=== PATIENT | female | born 1940 | race Caucasian/White ===

== ENCOUNTER 2024-10-05 19:52 | Inpatient (IN) ==
--- NOTE | 2024-10-05 20:11 | Emergency Department Note ---
Impression & Plan Hypotension, Diverticulitis, Tachycardia, Vomiting, Anemia, Intra-abdominal abscess ED Provider Note NAME: MARY ALTMAN AGE: 84 SEX: F : 1940 ARRIVES VIA: Walk-In INFORMANT: [Patient][family] ED PROVIDER(S): [Bismark Pelaez MD] CHIEF COMPLAINT: Abdominal pain HISTORY OF PRESENT ILLNESS: The patient is an 84-year-old female with a history of previous diverticulitis. She states that she began having some left lower quadrant abdominal pain yesterday. Things worsened today and a few hours ago, she began having vomiting and diarrhea. No blood in the vomit or the diarrhea. She was noted to be pale. She felt dizzy and lightheaded. She was brought for evaluation. There has been no cough or congestion. She is not short of breath. No chest pain. She has not had recent urinary complaints. Of note, today, the patient believes she had a temperature elevation. PMHx/PSHx/Social Hx: See Below PHYSICAL EXAM: GENERAL: Patient is in mild distress from pain, pale. HEENT: No acute trauma, normocephalic atraumatic, mucous membranes moist, no nasal congestion. NECK: No stridor, no adenopathy, no meningismus, trachea is midline. LUNGS: Clear to auscultation bilaterally, no wheeze, no rhonchi, breath sounds equal. HEART: Tachycardic, regular rhythm, no murmurs. ABDOMEN: Soft, tender primarily on the left although, the entire abdomen seems somewhat tender. No distention. EXTREMITIES: No cyanosis, full range of motion of all the joints without pain or difficulty. NEUROLOGIC: Oriented x 3, no acute motor or sensory deficits, no focal weakness. SKIN: No jaundice, no diaphoresis. Pale. DIFFERENTIAL DIAGNOSIS: Diverticulitis, abscess, pyelonephritis, foodborne or viral illness, electrolyte imbalance, dehydration, GI bleeding, among others. EMERGENCY DEPARTMENT PROCEDURES: MEDICAL DECISION MAKING: There is no leukocytosis. The patient is anemic however, this appears to have been the case over the last month or so. There was a normal platelet count. Sodium somewhat low but not in need of emergent correction. No renal failure. Lactic acid level was not elevated making severe sepsis less likely. No worrisome liver enzyme elevation. ECG showed a sinus tachycardia, no ischemia or dysrhythmia. Cardiac enzyme testing x 1 is not consistent with acute cardiac injury. Procalcitonin level is not elevated making serious bacterial infection less likely. No evidence for pancreatitis. Urinalysis did not show findings of infection. Abdominal and pelvis CT shows diverticulitis with a small left lower abdominal abscess. The possibility of tubo-ovarian abscess was queried. On exam, the patient was hypotensive, tachycardic and tender in the left lower quadrant. She appeared pale. Patient received IV saline, 1.5 L. She was given IV Zosyn as antibiotic coverage. She was given IV Zofran, IV Protonix and IV Pepcid. She was given IV Tylenol. With the above interventions, the patient has made improvement. She is much more comfortable. Her tachycardia has improved, her hypertension has resolved. I did speak with general surgery. The patient was seen by general surgery here in the ED. Hospitalization on the medical service was recommended. Patient very likely has diverticulitis with a small abscess from the diverticulitis. The possibility of ovarian cyst or tubo-ovarian abscess exists but seems less likely. I did speak with the patient and family. I spoke with case management, the on- call hospitalist was consulted. Prior/Outside records/notes reviewed: None ECG per my interpretation: Indication was abdominal pain. The ECG shows a sinus tachycardia with some PACs. The rate is 108. There is some diffuse nonspecific ST change. LVH is present. There is no acute ST elevation. No PVCs. The QTc is 452. Continuous Cardiac Monitoring per my interpretation: An order was placed for continuous cardiac monitoring. The monitor shows a rate of 115 with sinus tachycardia. Imaging/x-ray results per my interpretation: Chronic Medical/Social conditions affecting care: Advanced age. Care/Management discussed with: General Surgery-Dr. Mckeon. Case management and the on-call hospitalist. Level of care consideration(s): After review of the information above and other included data: --I believe the patient requires escalation of care to admission Critical Care Note: I have personally spent 54 minutes of critical care time in the direct management of this patient. This includes bedside care, interpretation of diagnostic studies, and testing, discussion with consultants, patient, and family members, and other required patient management activities. This 54 minutes is in excess of all separately billable procedures. DISPOSITION: Admission Past Med/Surg History Problem List Intra-abdominal abscess (Acute) Anemia (Acute) Vomiting (Acute) Tachycardia (Acute) Diverticulitis (Acute) Hypotension (Acute) Thyroid disease Seborrheic keratosis Osteoporosis Hyperlipidemia History of basal cell carcinoma Encounter for routine gynecological examination Depression Actinic keratosis Arthritis of both knees Tendinitis of right rotator cuff Hypercholesterolemia Pre-syncope Arthritis (Acute) Breast cancer (Acute) Hypothyroid (Acute) Left elbow fracture (Acute) Medical History Hypothyroidism Breast cancer Surgical History H/O colonoscopy H/O elbow surgery S/P breast lumpectomy Family History Family/Other Breast cancer Father Lung cancer Other Myocardial infarction Denies family history of Ovarian cancer Prostate cancer Colorectal cancer Social History Smoking Status: Never smoker Tobacco Type: Cigarettes Age Started Using Tobacco: 19; Age Quit Using Tobacco: 29; packs per day: 0.25; Second Hand Exposure: No; Hx Alcohol Use: Yes (1 glass of wine daily) Alcohol type: wine Alcohol Intake Frequency: Monthly or Less Hx Substance Use: No Preferred Language: Kazakh marital status: current occupational status: retired How many Children do You have: 3 Feels Safe at Home: Yes Childhood Exposure to Second-Hand Smoke: No during the past year weight has: remained stable Dental Care, Regularly: Yes Physical Activity Frequency: 1-2 Times per Week Seatbelt Use: always Sunscreen Use: Yes Allergies Allergies Allergy/AdvReac Type Severity Reaction Status Date / Time Corticosteroids AdvReac Severe "MANIC" Verified 10/05/24 21:55 (Glucocorticoids) succinylcholine AdvReac Severe Agitated Verified 10/05/24 21:55 Home Meds Home Medications Medication Instructions Recorded Confirmed atorvastatin 10 mg tablet 10 mg PO HS 11/11/21 10/05/24 levothyroxine 88 mcg tablet 88 mcg PO DAILYBB 02/09/23 10/05/24 risperidone 1 mg tablet 1 mg PO HS 02/09/23 10/05/24 trazodone 50 mg tablet 25 mg PO HS PRN Sleep 02/09/23 10/05/24 cholecalciferol (vitamin D3) 125 125 mcg PO DAILY 09/01/24 10/05/24 mcg (5,000 unit) capsule vitamin B complex 1 tab PO DAILY 09/01/24 10/05/24 turmeric 400 mg capsule 800 mg PO DAILY 10/05/24 10/05/24 Results & Data (ED) Vital Signs Vital Signs - 24 hr 10/05/24 19:54 10/05/24 20:03 10/05/24 20:06 Temperature 36.9 C Temperature Source Temporal Artery Scan Pulse Rate 117 H 115 H Pulse Rate from SpO2 Sensor Respiratory Rate 18 Respiratory Effort / Characteristics Non-Labored Spontaneous Respiratory Depth Normal Respiratory Pattern Regular Blood Pressure 90/51 L 117/67 Blood Pressure Mean 64 98 Pulse Oximetry 94 Oxygen Delivery Method Room Air Sepsis Recent Fever Within 48 Hours No Sepsis New/Unexplained Change in Mental Status N/A Sepsis Action Taken by Nursing No Action Required 10/05/24 20:08 10/05/24 20:11 10/05/24 20:54 Temperature Temperature Source Pulse Rate 102 H Pulse Rate from SpO2 Sensor Respiratory Rate 22 Respiratory Effort / Characteristics Respiratory Depth Respiratory Pattern Blood Pressure 126/79 Blood Pressure Mean 90 Pulse Oximetry 95 Oxygen Delivery Method Room Air Sepsis Recent Fever Within 48 Hours Sepsis New/Unexplained Change in Mental Status Sepsis Action Taken by Nursing 10/05/24 21:19 10/05/24 21:19 10/05/24 21:30 Temperature Temperature Source Pulse Rate 100 H 97 H Pulse Rate from SpO2 Sensor 97 H Respiratory Rate 22 25 H Respiratory Effort / Characteristics Respiratory Depth Respiratory Pattern Blood Pressure 126/76 126/76 100/57 L Blood Pressure Mean 106 106 71 Pulse Oximetry 94 94 Oxygen Delivery Method Room Air Room Air Sepsis Recent Fever Within 48 Hours Sepsis New/Unexplained Change in Mental Status Sepsis Action Taken by Nursing 10/05/24 21:42 10/05/24 22:00 10/05/24 22:39 Temperature Temperature Source Pulse Rate 93 H 90 90 Pulse Rate from SpO2 Sensor 93 H 90 90 Respiratory Rate 25 H 25 H 28 H Respiratory Effort / Characteristics Respiratory Depth Respiratory Pattern Blood Pressure 95/57 L 124/67 Blood Pressure Mean 69 86 Pulse Oximetry 93 93 96 Oxygen Delivery Method Room Air Room Air Room Air Sepsis Recent Fever Within 48 Hours Sepsis New/Unexplained Change in Mental Status Sepsis Action Taken by Nursing 10/05/24 22:40 Temperature Temperature Source Pulse Rate Pulse Rate from SpO2 Sensor Respiratory Rate Respiratory Effort / Characteristics Respiratory Depth Respiratory Pattern Blood Pressure 124/67 Blood Pressure Mean 91 Pulse Oximetry Oxygen Delivery Method Sepsis Recent Fever Within 48 Hours Sepsis New/Unexplained Change in Mental Status Sepsis Action Taken by Snf Medications Current Medication List: was personally reviewed by me Laboratory Data Attestation: I reviewed the patient's lab results. 10/05/24 20:04 10/05/24 20:04 Lab Results 10/05/24 10/05/24 10/05/24 Range/Units 20:04 20:27 22:39 WBC 9.68 (4.8-10.8) K/ul RBC 3.79 L (4.20-5.40) M/uL Hgb 10.3 L (12.0-16.0) g/dl Hct 31.3 L (37.0-47.0) % MCV 82.6 (80.0-100.0) fL MCH 27.2 (25.0-34.0) pg MCHC 32.9 (32.0-36.0) g/dL RDW Std Deviation 45.5 (36.4-46.3) fL RDW Coeff of Dinesh 15.2 H (11.5-14.5) % Plt Count 357 (130-400) K/uL MPV 10.2 (9.4-12.4) fL Immature Gran % (Auto) 0.2 % Neut % (Auto) 78.6 % Lymph % (Auto) 12.9 % [place] % (Auto) 8.0 % Eos % (Auto) 0.1 % Baso % (Auto) 0.2 % Neut # (Auto) 7.61 H (1.40-6.50) K/uL Lymph # (Auto) 1.25 (1.20-3.40) K/uL [place] # (Auto) 0.77 H (0.11-0.59) K/uL Eos # (Auto) 0.01 (0.00-0.50) K/uL Baso # (Auto) 0.02 (0.00-0.20) K/uL Immature Gran # (Auto) 0.02 (0.01-0.20) K/uL Sodium 131 L (136-145) mmol/L Potassium 4.0 (3.5-5.1) mmol/L Chloride 98 (98-107) mmol/L Carbon Dioxide 21 (21-32) mmol/L Anion Gap 12 H (3-11) BUN 17 (6-23) mg/dl Creatinine 0.89 (0.6-1.2) mg/dl Est Cr Clr Drug Dosing 42.3 ml/min eGFR 63.49 BUN/Creatinine Ratio 19.1 (10-20) Glucose 206 H (70-99(Fasting)) mg/dl Lactate 1.9 (0.4-2.0) mmol/L Calcium 9.2 (8.6-10.3) mg/dl Magnesium 1.9 (1.7-2.4) mg/dl Total Bilirubin 0.6 (0.2-1.0) mg/dl AST 12 L (13-39) U/L ALT 6 L (7-52) U/L Alkaline Phosphatase 80 (34-104) U/L Troponin I High Sens 6.7 (0-14) pg/ml Total Protein 7.3 (6.0-8.3) gm/dl Albumin 3.5 (3.4-5.0) gm/dl Globulin 3.8 (2.5-4.0) gm/dl Albumin/Globulin Ratio 0.9 (0.9-2) Lipase 19 (11-82) U/L Procalcitonin 0.12 (0-0.5) ng/ml Urine Color Yellow Urine Appearance Clear (Clear) Urine pH 6.5 (4.5-7.5) Ur Specific [place] > 1.045 H (1.000-1.030) Urine Protein Negative (Negative) Urine Glucose (UA) Negative (Negative) Urine Ketones Negative (Negative) Urine Blood Negative (Negative) Urine Nitrite Negative (Negative) Urine Bilirubin Negative (Negative) Urine Urobilinogen Negative (Negative) Ur Leukocyte Esterase Negative (Negative) Administered Medications Discontinued Medications Sodium Chloride (Nss) 1,000 mls @ 999 mls/hr IV .Q1H1M STA Stop: 10/05/24 20:59 Last Infusion: 10/05/24 21:20 Dose: Infused Documented By: Admin: 10/05/24 20:13 Dose: 999 mls/hr Documented By: ONI Famotidine (Pepcid 20mg Iv Push) 20 mg in 5 mls @ 2.5 mls/min IV NOW STA Stop: 10/05/24 20:00 Last Admin: 10/05/24 20:14 Dose: 2.5 mls/min Documented By: ONI Pantoprazole Sodium 80 mg/ (Dextrose) 120 mls @ 400 mls/hr IV NOW ONE Stop: 10/05/24 20:53 Last Infusion: 10/05/24 22:32 Dose: Infused Documented By: Admin: 10/05/24 22:08 Dose: 400 mls/hr Documented By: ONI Acetaminophen (Ofirmev) 1,000 mg in 100 mls @ 400 mls/hr IV NOW STA Stop: 10/05/24 21:08 Last Infusion: 10/05/24 22:07 Dose: Infused Documented By: Admin: 10/05/24 21:20 Dose: 400 mls/hr Documented By: ONI Piperacillin Sod/Tazobactam Sod (Zosyn) 4.5 gm in 100 mls @ 200 mls/hr IV NOW ONE Stop: 10/05/24 22:35 Last Admin: 10/05/24 22:37 Dose: 200 mls/hr Documented By: ONI Sodium Chloride (Nss) 500 mls @ 999 mls/hr IV .Q31M ONE Stop: 10/05/24 22:36 Last Admin: 10/05/24 22:11 Dose: 999 mls/hr Documented By: ONI Ioversol (Optiray 320 100ml) 90 ml IV ONCE ONE Stop: 10/05/24 20:59 Last Admin: 10/05/24 20:58 Dose: 90 ml Documented By: TINY Ondansetron HCl (Ondansetron Inj 2 Mg/Ml 2 Ml Vial) 4 mg IV NOW STA Stop: 10/05/24 20:00 Last Admin: 10/05/24 20:14 Dose: 4 mg Documented By: ONI Imaging Data Radiologist's Impression: Abdomen/Pelvis CT 10/05/24 19:59 Exam(s): CT ABDOMEN + PELVIS With Contrast IV Amt: 90 ml optiray 320 EXAM: CT Abdomen and Pelvis With Intravenous Contrast CLINICAL HISTORY: Reason for exam: llq pain, vomiting. TECHNIQUE: Axial computed tomography images of the abdomen and pelvis with intravenous contrast. CTDI is 16.73 mGy and DLP is 757.09 mGy-cm. Automated exposure control was utilized for the study. A dose lowering technique was utilized adhering to the principles of ALARA. CONTRAST: Patient received 90 ml optiray 320 of IV contrast COMPARISON: May 16, 2024 FINDINGS: Lung bases: Unremarkable. No mass. No consolidation. Mediastinum: There is a hiatal hernia measuring 10 cm transverse containing approximately one third of the stomach. ABDOMEN: Liver: Unremarkable. No mass. Gallbladder and bile ducts: Unremarkable. No calcified stones. No ductal dilation. Pancreas: Unremarkable. No mass. No ductal dilation. Spleen: Unremarkable. No splenomegaly. Adrenals: Unremarkable. No mass. Kidneys and ureters: Unremarkable. No solid mass. No hydronephrosis. Stomach and bowel: There is diverticulosis throughout the sigmoid colon with mild wall thickening and slight surrounding inflammation suggesting diverticulitis and/or colitis. Mild diffuse mesenteric edema in the lower abdomen and pelvis most plus associated with small bowel loops suggesting enteritis. No obstruction. PELVIS: Appendix: No findings to suggest acute appendicitis. Bladder: Unremarkable. No mass. Reproductive: There is a curvilinear fluid-filled tubular structure measuring 2 cm in diameter in the left side of the pelvis which appears contiguous with the uterus. ABDOMEN and PELVIS: Intraperitoneal space: Small to moderate amount of free fluid in the pelvis. No free air. Bones/joints: Mild to moderate degenerative changes throughout the spine. No acute fracture or subluxation is seen. Soft tissues: Unremarkable. Vasculature: The abdominal aorta is mildly calcified but nondilated. Lymph nodes: Unremarkable. No enlarged lymph nodes. IMPRESSION: 1. There is a curvilinear fluid-filled tubular structure measuring 2 cm in diameter in the left side of the pelvis which appears contiguous with the uterus. Consider tubo-ovarian abscess. 2. There is diverticulosis throughout the sigmoid colon with mild wall thickening and slight surrounding inflammation suggesting diverticulitis and/or colitis. 3. Mild diffuse mesenteric edema in the lower abdomen and pelvis most plus associated with small bowel loops suggesting enteritis. 4. There is a hiatal hernia measuring 10 cm transverse containing approximately one third of the stomach. Electronically signed by: Leonardo Amato MD 10/05/24 22:13 PM Discharge Plan Visit Data Chief Complaint: Abdominal Pain Stated Complaint: ABD PAIN ED Provider: Bismark Pelaez Discharge Problem: Hypotension, Diverticulitis, Tachycardia, Vomiting, Anemia, Intra-abdominal abscess Patient Disposition: Admitted As Inpatient Condition: Serious Forms Stand Alone Forms: My [facility] Prescriptions Prescriptions: No Action cholecalciferol (vitamin D3) 125 mcg (5,000 unit) capsule 125 mcg PO DAILY vitamin B complex Tablet 1 tab PO DAILY atorvastatin 10 mg tablet 10 mg PO HS risperidone 1 mg tablet 1 mg PO HS trazodone 50 mg tablet 25 mg PO HS PRN (Reason: Sleep) Rx Instructions: may repeat once if needed levothyroxine 88 mcg tablet 88 mcg PO DAILYBB turmeric 400 mg Capsule 800 mg PO DAILY Referrals Referrals: Macie Parish DO [Primary Care Provider] - Discharge Problem: Hypotension Qualifiers: Hypotension type: unspecified hypotension type Qualified Code(s): I95.9 - Hypotension, unspecified Vomiting Qualifiers: Vomiting type: unspecified Nausea presence: with nausea Qualified Code(s): R 11.2 - Nausea with vomiting, unspecified Anemia Qualifiers: Anemia type: unspecified type Qualified Code(s): D64.9 - Anemia, unspecified
[2024-10-05] MEDS: SODIUM CHLORIDE 0.9% 1,000 ML IV STA (20:13)
[2024-10-05] MEDS: FAMOTIDINE 20MG IV PUSH 20 MG/5 ML SYR IV STA (20:14)
[2024-10-05] MEDS: ONDANSETRON INJ 2 MG/ML 2 ML VIAL IV STA (20:14)
[2024-10-05 20:23] LABS: Basophils # (auto) 0.02 K/uL (0.00-0.20); Basophils % (auto) 0.2 %; Eosinophils # (auto) 0.01 K/uL (0.00-0.50); Eosinophils % (auto) 0.1 %; Hematocrit (blood only) 31.3 % (37.0-47.0); Hemoglobin 10.3 g/dl (12.0-16.0); Immature Granulocytes # (auto) 0.02 K/uL (0.01-0.20); Immature Granulocytes % (auto) 0.2 %; Lymphocytes # (auto) 1.25 K/uL (1.20-3.40); Lymphocytes % (auto) 12.9 %; Mean Corpuscular Hemoglobin 27.2 pg (25.0-34.0); Mean Corpuscular Hgb Conc 32.9 g/dL (32.0-36.0); Mean Corpuscular Volume 82.6 fL (80.0-100.0); Mean Platelet Volume 10.2 fL (9.4-12.4); Monocytes # (auto) 0.77 K/uL (0.11-0.59); Neutrophils # (auto) 7.61 K/uL (1.40-6.50); Neutrophils % (auto) 78.6 %; Platelet Count 357 K/uL (130-400); RDW Coefficient of Variation 15.2 % (11.5-14.5); RDW Standard Deviation 45.5 fL (36.4-46.3); Red Blood Count 3.79 M/uL (4.20-5.40); White Blood Count 9.68 K/ul (4.8-10.8)
[2024-10-05 20:42] LABS: Albumin Globulin Ratio 0.9 (0.9-2); Albumin Level 3.5 gm/dl (3.4-5.0); BUN Creatinine Ratio 19.1 (10-20); Bilirubin,Total 0.6 mg/dl (0.2-1.0); Calcium 9.2 mg/dl (8.6-10.3); Creatinine Clr Calc Pharmacy 42.3 ml/min; Globulin 3.8 gm/dl (2.5-4.0); Magnesium 1.9 mg/dl (1.7-2.4); Total Protein 7.3 gm/dl (6.0-8.3)
[2024-10-05 20:48] LABS: Troponin I High Sensitivity 6.7 pg/ml (0-14)
[2024-10-05] MEDS: OPTIRAY 320 100ml IV ONE (20:58)
[2024-10-05] MEDS: ACETAMINOPHEN 1,000 MG/100 ML VIAL IV STA (21:20)
[2024-10-05] MEDS: PANTOprazole 80 MG in DEXTROSE 5% 100 ML IV ONE (22:08)
[2024-10-05] MEDS: SODIUM CHLORIDE 0.9% 500 ML IV ONE (22:11)
--- NOTE | 2024-10-05 22:14 | CT Scan Report ---
Exam(s): CT ABDOMEN + PELVIS With Contrast IV Amt: 90 ml optiray 320 EXAM: CT Abdomen and Pelvis With Intravenous Contrast CLINICAL HISTORY: Reason for exam: llq pain, vomiting. TECHNIQUE: Axial computed tomography images of the abdomen and pelvis with intravenous contrast. CTDI is 16.73 mGy and DLP is 757.09 mGy-cm. Automated exposure control was utilized for the study. A dose lowering technique was utilized adhering to the principles of ALARA. CONTRAST: Patient received 90 ml optiray 320 of IV contrast COMPARISON: May 16, 2024 FINDINGS: Lung bases: Unremarkable. No mass. No consolidation. Mediastinum: There is a hiatal hernia measuring 10 cm transverse containing approximately one third of the stomach. ABDOMEN: Liver: Unremarkable. No mass. Gallbladder and bile ducts: Unremarkable. No calcified stones. No ductal dilation. Pancreas: Unremarkable. No mass. No ductal dilation. Spleen: Unremarkable. No splenomegaly. Adrenals: Unremarkable. No mass. Kidneys and ureters: Unremarkable. No solid mass. No hydronephrosis. Stomach and bowel: There is diverticulosis throughout the sigmoid colon with mild wall thickening and slight surrounding inflammation suggesting diverticulitis and/or colitis. Mild diffuse mesenteric edema in the lower abdomen and pelvis most plus associated with small bowel loops suggesting enteritis. No obstruction. PELVIS: Appendix: No findings to suggest acute appendicitis. Bladder: Unremarkable. No mass. Reproductive: There is a curvilinear fluid-filled tubular structure measuring 2 cm in diameter in the left side of the pelvis which appears contiguous with the uterus. ABDOMEN and PELVIS: Intraperitoneal space: Small to moderate amount of free fluid in the pelvis. No free air. Bones/joints: Mild to moderate degenerative changes throughout the spine. No acute fracture or subluxation is seen. Soft tissues: Unremarkable. Vasculature: The abdominal aorta is mildly calcified but nondilated. Lymph nodes: Unremarkable. No enlarged lymph nodes. IMPRESSION: 1. There is a curvilinear fluid-filled tubular structure measuring 2 cm in diameter in the left side of the pelvis which appears contiguous with the uterus. Consider tubo-ovarian abscess. 2. There is diverticulosis throughout the sigmoid colon with mild wall thickening and slight surrounding inflammation suggesting diverticulitis and/or colitis. 3. Mild diffuse mesenteric edema in the lower abdomen and pelvis most plus associated with small bowel loops suggesting enteritis. 4. There is a hiatal hernia measuring 10 cm transverse containing approximately one third of the stomach. Electronically signed by: Leonardo Amato MD 10/05/24 22:13 PM
[2024-10-05] MEDS: PIPERACILLIN/TAZOBACTAM 4.5 GM/100 ML BAG IV ONE (22:37)
--- NOTE | 2024-10-05 23:03 | Surgery Consultation ---
Date of Consultation October 05, 2024 Assessment & Plan (1) Diverticulitis: Patient is a 84-year-old female with complaints of severe left lower quadrant abdominal pain with associated nausea, vomiting and diarrhea. Upon workup in the emergency department her WBC was [address] imaging was concerning for diverticu litis, enteritis, and a 2cm fluid-filled tubular structure concerning for possible tubo-ovarian abscess in the left pelvis. Patient originally was hypotensive with SBP in the 90s and tachycardic with HR in the 110s and after fluid resuscitation the patient did respond appropriately. During exam, the patient has no signs of acute abdomen that would warrant emergent surgical intervention at this time. In regards to the 2cm abscess in the left pelvis, the possibility of tubo-ovarian abscess seems less likely at this time given patient's clinical exam and her prior history of diverticulitis. From a surgical standpoint recommend the patient be admitted for close monitoring. NPO, IV hydration, IV antibiotics, and pain control. Continue to monitor WBC. Could consider consult gynecology to further evaluate for possible tubo-ovarian abscess. Medical management per primary team, surgery will continue to closely follow. (2) Intra-abdominal abscess: History of Present Illness Reason for Consultation: Diverticulitis History of Present Illness Patient is a 84-year-old female who presented to the emergency department this evening with complaints of severe abdominal pain. The patient states that the pain started yesterday however suddenly shortly after eating dinner tonight the pain had gotten more severe. The pain was located in her left lower quadrant however is now more diffuse throughout her abdomen. The pain was so severe she ultimately became nauseous and did have some vomiting. She also had diarrhea with cramping pains. The patient does have a history of previous diverticulitis in 2022 that was treated conservatively with antibiotics at that time. She did have a colonoscopy in 2022 as well which did demonstrate diverticulosis and 2 polyps were removed. In the emergency department the patient was tachycardic and slightly hypotensive when she first arrived, however she did respond to fluids. CT imaging was concerning for diverticulitis, enteritis, and a 2cm fluid-filled tubular structure in the left pelvis concerning for possible tubo-ovarian abs cess. Due to the findings, the surgery team was consulted for further evaluation. The patient was seen and evaluated this evening at bedside, she is accompanied by her and daughter. The patient is resting comfortably in bed, VSS and no longer tachycardic or hypotensive, and is nontoxic appearing. The patient continues with pain in the LLQ however no longer has any nausea or vomiting. The patient states she has never had any previous abdominal surgeries in the past. Allergies Allergy/AdvReac Type Severity Reaction Status Date / Time Corticosteroids AdvReac Severe "MANIC" Verified 10/05/24 21:55 (Glucocorticoids) succinylcholine AdvReac Severe Agitated Verified 10/05/24 21:55 Home Medications Medication Instructions Recorded Confirmed Type atorvastatin 10 mg tablet 10 mg PO HS 11/11/21 10/05/24 History levothyroxine 88 mcg tablet 88 mcg PO DAILYBB 02/09/23 10/05/24 History risperidone 1 mg tablet 1 mg PO HS 02/09/23 10/05/24 History trazodone 50 mg tablet 25 mg PO HS PRN Sleep 02/09/23 10/05/24 History cholecalciferol (vitamin D3) 125 125 mcg PO DAILY 09/01/24 10/05/24 History mcg (5,000 unit) capsule vitamin B complex 1 tab PO DAILY 09/01/24 10/05/24 History turmeric 400 mg capsule 800 mg PO DAILY 10/05/24 10/05/24 History Patient History Medical History Hypothyroidism Breast cancer Surgical History H/O colonoscopy H/O elbow surgery S/P breast lumpectomy Family History Family/Other Breast cancer Father Lung cancer Other Myocardial infarction Denies family history of Ovarian cancer Prostate cancer Colorectal cancer Social History Smoking Status: Former smoker Tobacco Type: Cigarettes Age Started Using Tobacco: 19; Age Quit Using Tobacco: 29; packs per day: 0.25; Second Hand Exposure: No; Do You Dip or Chew Tobacco: No; Hx Alcohol Use: Yes Alcohol type: wine Alcohol Intake Frequency: Monthly or Less Hx Substance Use: No Preferred Language: [place] Zeal[place] Beliefs That Will Affect Care: None marital status: Current Living Situation: Spouse Current Living Situation Comment: Pt lives in a two story home with her spouse current occupational status: retired How many Children do You have: 3 Other Information That Helps Us Care for You: No Feels Safe at Home: Yes Safety Concerns: Feels Safe At This Time Childhood Exposure to Second-Hand Smoke: No during the past year weight has: remained stable Dental Care, Regularly: Yes Physical Activity Frequency: 1-2 Times per Week Seatbelt Use: always Sunscreen Use: Yes Assistive Devices: Glasses Review of Systems Constitutional: as per Subjective / HPI and + body aches Respiratory: no cough, no dyspnea and no wheezing Cardiovascular: no chest pain, no palpitations and no syncope Gastrointestinal: + abdominal pain, + nausea, + vomiting a nd + cramping Genitourinary: no dysuria, no urinary hesitancy and no hematuria Physical Exam Constitutional: WD/WN, vitals as above Respiratory: normal respiratory effort, lungs clear to auscultation Cardiovascular: RRR, no murmur, no edema Gastrointestinal (Abdomen): Abdomen soft, minimally distended, +TTP in the LLQ. No rebound or signs of peritonitis Skin: no rashes, warm and dry Results & Data Vital Signs (Past 12 Hours) Vital Signs Temp Pulse Resp BP Pulse Ox O2 Del Method 10/05/24 22:40 124/67 10/05/24 22:39 90 28 H 124/67 96 Room Air 10/05/24 22:00 90 25 H 95/57 L 93 Room Air 10/05/24 21:42 93 H 25 H 93 Room Air 10/05/24 21:30 97 H 25 H 100/57 L 94 Room Air 10/05/24 21:19 126/76 10/05/24 21:19 100 H 22 126/76 94 Room Air 10/05/24 20:54 102 H 22 10/05/24 20:11 95 Room Air 10/05/24 20:08 126/79 10/05/24 20:06 115 H 10/05/24 20:03 117/67 10/05/24 19:54 36.9 C 117 H 18 90/51 L 94 Room Air Diagnostic Findings Exam(s): CT ABDOMEN + PELVIS With Contrast IV Amt: 90 ml optiray 320 EXAM: CT Abdomen and Pelvis With Intravenous Contrast CLINICAL HISTORY: Reason for exam: llq pain, vomiting. TECHNIQUE: Axial computed tomography images of the abdomen and pelvis with intravenous contrast. CTDI is 16.73 mGy and DLP is 757.09 mGy-cm. Automated exposure control was utilized for the study. A dose lowering technique was utilized adhering to the principles of ALARA. CONTRAST: Patient received 90 ml optiray 320 of IV contrast COMPARISON: May 16, 2024 FINDINGS: Lung bases: Unremarkable. No mass. No consolidation. Mediastinum: There is a hiatal hernia measuring 10 cm transverse containing approximately one third of the stomach. ABDOMEN: Liver: Unremarkable. No mass. Gallbladder and bile ducts: Unremarkable. No calcified stones. No ductal dilation. Pancreas: Unremarkable. No mass. No ductal dilation. Spleen: Unremarkable. No splenomegaly. Adrenals: Unremarkable. No mass. Kidneys and ureters: Unremarkable. No solid mass. No hydronephrosis. Stomach and bowel: There is diverticulosis throughout the sigmoid colon with mild wall thickening and slight surrounding inflammation suggesting diverticulitis and/or colitis. Mild diffuse mesenteric edema in the lower abdomen and pelvis most plus associated with small bowel loops suggesting enteritis. No obstruction. PELVIS: Appendix: No findings to suggest acute appendicitis. Bladder: Unremarkable. No mass. Reproductive: There is a curvilinear fluid-filled tubular structure measuring 2 cm in diameter in the left side of the pelvis which appears contiguous with the uterus. ABDOMEN and PELVIS: Intraperitoneal space: Small to moderate amount of free fluid in the pelvis. No free air. Bones/joints: Mild to moderate degenerative changes throughout the spine. No acute fracture or subluxation is seen. Soft tissues: Unremarkable. Vasculature: The abdominal aorta is mildly calcified but nondilated. Lymph nodes: Unremarkable. No enlarged lymph nodes. IMPRESSION: 1. There is a curvilinear fluid-filled tubular structure measuring 2 cm in diameter in the left side of the pelvis which appears contiguous with the uterus. Consider tubo-ovarian abscess. 2. There is diverticulosis throughout the sigmoid colon with mild wall thickening and slight surrounding inflammation suggesting diverticulitis and/or colitis. 3. Mild diffuse mesenteric edema in the lower abdomen and pelvis most plus associated with small bowel loops suggesting enteritis. 4. There is a hiatal hernia measuring 10 cm transverse containing approximately one third of the stomach. PG Care Time/CCT Total # of Minutes Spent Total Time Spent with Patient: Total time spent is greater than 50% in coordination of care (as documented) at patient's floor/unit and/or counseling patient: [place] [address] INT INP/OBS CARE MIN Patient Type New Medical Decision Making Straight Forward Diagnoses Diverticulitis K57.92 Intra-abdominal abscess K65.1
[2024-10-05 23:04] LABS: Appearance Urine Clear (Clear); Bilirubin Urine Negative (Negative); Blood Urine Negative (Negative); Color Urine Yellow; Glucose Urine UA Negative (Negative); Ketones Urine Negative (Negative); Leukocyte Esterase Urine Negative (Negative); Nitrite Urine Negative (Negative); Protein Urine Negative (Negative); Specific Gravity Urine > 1.045 (1.000-1.030); Urobilinogen Urine Negative (Negative); pH Urine 6.5 (4.5-7.5)
--- NOTE | 2024-10-06 00:07 | History & Physical Report ---
Date of Service October 06, 2024 Assessment & Plan (1) Intra-abdominal abscess: (2) Vomiting: (3) Diverticulitis: (4) Hyperlipidemia: (5) Thyroid disease: (6) Depression: Plan Patient is a 84 yo F w/ a PMHx of diverticulitis, Hx of BCC, osteoporosis, depression, hypothyroidism, anemia, Hx of breast cancer, presenting today w/ LLQ pain of about a week, accompanied by N/V and a fever of 102 F. 1) Left-side tubo-ovarian abscess - CT: There is a curvilinear fluid-filled tubular structure measuring 2 cm in diameter in the left side of the pelvis which appears contiguous with the uterus. Consider tubo-ovarian abscess. - Gen Surg consulted, ObGyn consulted - NPO at midnight - start Unasyn, 3 g, q6hrs 2) Mild diverticulitis of sigmoid colon CT: There is diverticulosis throughout the sigmoid colon with mild wall thickeni ng and slight surrounding inflammation suggesting diverticulitis and/or colitis. - NPO at midnight, Diet-Clear fluids after surgery, I&D (if that is performed) Chronic conditions #Depression/Insomnia - risperidone, trazodone, Ativan (night of admission) #hypothyroidism - levothyroxine, 88 mcg, PO, daily AM #Hypercholesterolemia - atorvastatin Code status: Full code Disposition: Med-Tele FENGI: NPO initially, Diet-Clear liquids, advance as tolerated VTE prophylaxis: SCD's (to knee) History of Present Illness Chief Complaint: LLQ Abdominal Pain Primary Care Provider: Macie Parish DO Patient is a 84 yo F w/ a PMHx of diverticulitis, Hx of BCC, osteoporosis, depression, hypothyroidism, anemia, Hx of breast cancer, presenting today w/ LLQ pain of about a week, accompanied by N/V and a fever of 102 F. Patient states that she has been experiencing LLQ AP for about a week, off and on. Patient had a bout of diverticulitis in the summertime and since that time has had lingering pain from what she assumed was the diverticulitis. In late Jun, 2024, pt had a second bout of diverticulitis, took another round of antibiotics. Patient started taking Miralax after the second bout of diverticulitis and found that she'd get diarrhea from it, and started taking it every other day. Besides that, the patient hasn't noticed any other changes in her bowel movements, no blood in the stool, no dark-colored stools. Patient has not been following with an ObGyn for years, does not have intercourse, and had not noticed any pain that seemed more inferior to the "diverticular pain" she'd experienced recently. Patient rates the pain right now as a 4/10, states that it has been worse after meals. Patient has been experiencing N/V and had a fever of 102 F today. Patient's last BM was today, she had an episode of diarrhea after the CT scan. Patient feels like she typically gets enough fiber in her diet and has been supplementing with Metamucil at advice of her doctor since the last episode. Last colonoscopy was in 2022, was told to F/U in 3 yrs. Patient denies increased freq/urgency of urination, denies dysuria, denies flank pain. Patient also denies CP, palpitations; cough or wheezing, but does endorse some chronic dyspnea. Allergies Allergy/AdvReac Type Severity Reaction Status Date / Time Corticosteroids AdvReac Severe "MANIC" Verified 10/05/24 21:55 (Glucocorticoids) succinylcholine AdvReac Severe Agitated Verified 10/05/24 21:55 Home Medications Medication Instructions Recorded Confirmed Type atorvastatin 10 mg tablet 10 mg PO HS 11/11/21 10/05/24 History levothyroxine 88 mcg tablet 88 mcg PO DAILYBB 02/09/23 10/05/24 History risperidone 1 mg tablet 1 mg PO HS 02/09/23 10/05/24 History trazodone 50 mg tablet 25 mg PO HS PRN Sleep 02/09/23 10/05/24 History cholecalciferol (vitamin D3) 125 125 mcg PO DAILY 09/01/24 10/05/24 History mcg (5,000 unit) capsule vitamin B complex 1 tab PO DAILY 09/01/24 10/05/24 History turmeric 400 mg capsule 800 mg PO DAILY 10/05/24 10/05/24 History Past Med/Surg History Problem List Intra-abdominal abscess (Acute) Anemia (Acute) Vomiting (Acute) Tachycardia (Acute) Diverticulitis (Acute) Hypotension (Acute) Thyroid disease Seborrheic keratosis Osteoporosis Hyperlipidemia History of basal cell carcinoma Encounter for routine gynecological examination Depression Actinic keratosis Arthritis of both knees Tendinitis of right rotator cuff Hypercholesterolemia Pre-syncope Arthritis (Acute) Breast cancer (Acute) Hypothyroid (Acute) Left elbow fracture (Acute) Medical History Hypothyroidism Breast cancer Surgical History H/O colonoscopy H/O elbow surgery S/P breast lumpectomy Family History Family/Other Breast cancer Father Lung cancer Other Myocardial infarction Denies family history of Ovarian cancer Prostate cancer Colorectal cancer Social History Smoking Status: Former smoker Tobacco Type: Cigarettes Age Started Using Tobacco: 19; Age Quit Using Tobacco: 29; packs per day: 0.25; Second Hand Exposure: No; Do You Dip or Chew Tobacco: No; Hx Alcohol Use: Yes Alcohol type: wine Alcohol Intake Frequency: Monthly or Less Hx Substance Use: No Preferred Language: Serbian Beliefs That Will Affect Care: None marital status: Current Living Situation: Spouse Current Living Situation Comment: Pt lives in a two story home with her spouse current occupational status: retired How many Children do You have: 3 Other Information That Helps Us Care for You: No Feels Safe at Home: Yes Safety Concerns: Feels Safe At This Time Childhood Exposure to Second-Hand Smoke: No during the past year weight has: remained stable Dental Care, Regularly: Yes Physical Activity Frequency: 1-2 Times per Week Seatbelt Use: always Sunscreen Use: Yes Assistive Devices: Glasses Review of Systems Review of Systems: as noted above in the HPI Physical Exam Constitutional: WD/WN, vitals as above Respiratory: normal respiratory effort, lungs clear to auscultation Cardiovascular: RRR, no murmur, no edema Gastrointestinal (Abdomen): Inspection/Auscultation: + abdomen distended and normal bowel sounds Percussion/Palpation: + abdomen tender (RLQ and LLQ pain) and + abdomen firm Psychiatric: A+Ox3, euthymic affect Genitourinary: no CVA tenderness Results & Data Results & Data Vital Signs (Past 12 Hours) Vital Signs Temp Pulse Resp BP Pulse Ox O2 Del Method 10/05/24 23:00 86 20 115/64 96 10/05/24 22:40 124/67 10/05/24 22:39 90 28 H 124/67 96 Room Air 10/05/24 22:00 90 25 H 95/57 L 93 Room Air 10/05/24 21:42 93 H 25 H 93 Room Air 10/05/24 21:30 97 H 25 H 100/57 L 94 Room Air 10/05/24 21:19 126/76 10/05/24 21:19 100 H 22 126/76 94 Room Air 10/05/24 20:54 102 H 22 10/05/24 20:11 95 Room Air 10/05/24 20:08 126/79 10/05/24 20:06 115 H 10/05/24 20:03 117/67 10/05/24 19:54 36.9 C 117 H 18 90/51 L 94 Room Air Diagnostic Findings Abdomen/Pelvis CT 10/05/24 19:59 Exam(s): CT ABDOMEN + PELVIS With Contrast IV Amt: 90 ml optiray 320 EXAM: CT Abdomen and Pelvis With Intravenous Contrast CLINICAL HISTORY: Reason for exam: llq pain, vomiting. TECHNIQUE: Axial computed tomography images of the abdomen and pelvis with intravenous contrast. CTDI is 16.73 mGy and DLP is 757.09 mGy-cm. Automated exposure control was utilized for the study. A dose lowering technique was utilized adhering to the principles of ALARA. CONTRAST: Patient received 90 ml optiray 320 of IV contrast COMPARISON: May 16, 2024 FINDINGS: Lung bases: Unremarkable. No mass. No consolidation. Mediastinum: There is a hiatal hernia measuring 10 cm transverse containing approximately one third of the stomach. ABDOMEN: Liver: Unremarkable. No mass. Gallbladder and bile ducts: Unremarkable. No calcified stones. No ductal dilation. Pancreas: Unremarkable. No mass. No ductal dilation. Spleen: Unremarkable. No splenomegaly. Adrenals: Unremarkable. No mass. Kidneys and ureters: Unremarkable. No solid mass. No hydronephrosis. Stomach and bowel: There is diverticulosis throughout the sigmoid colon with mild wall thickening and slight surrounding inflammation suggesting diverticulitis and/or colitis. Mild diffuse mesenteric edema in the lower abdomen and pelvis most plus associated with small bowel loops suggesting enteritis. No obstruction. PELVIS: Appendix: No findings to suggest acute appendicitis. Bladder: Unremarkable. No mass. Reproductive: There is a curvilinear fluid-filled tubular structure measuring 2 cm in diameter in the left side of the pelvis which appears contiguous with the uterus. ABDOMEN and PELVIS: Intraperitoneal space: Small to moderate amount of free fluid in the pelvis. No free air. Bones/joints: Mild to moderate degenerative changes throughout the spine. No acute fracture or subluxation is seen. Soft tissues: Unremarkable. Vasculature: The abdominal aorta is mildly calcified but nondilated. Lymph nodes: Unremarkable. No enlarged lymph nodes. IMPRESSION: 1. There is a curvilinear fluid-filled tubular structure measuring 2 cm in diameter in the left side of the pelvis which appears contiguous with the uterus. Consider tubo-ovarian abscess. 2. There is diverticulosis throughout the sigmoid colon with mild wall thickening and slight surrounding inflammation suggesting diverticulitis and/or colitis. 3. Mild diffuse mesenteric edema in the lower abdomen and pelvis most plus associated with small bowel loops suggesting enteritis. 4. There is a hiatal hernia measuring 10 cm transverse containing approximately one third of the stomach. Electronically signed by: Leonardo Amato MD 10/05/24 22:13 PM Supervising Physician Co-Signing Physician Notes Attending addendum: I have physically seen this patient, have supervised the medical residents activities, and agree with the H&P unless as otherwise noted. Assessment and Plan: The patient is an 84-year-old female with a past medical history of diverticulitis, BCC, osteoporosis, depression, hypothyroidism, anemia, breast cancer who presents to the emergency department with complaint of 1 week of left lower quadrant pain., With nausea and vomiting, and temperature maximum 102 F. #Sigmoid Diverticulitis/left sided tubo-ovarian abscess- CT scan abdomen pelvis shows diverticulosis throughout the sigmoid colon with mild wall thickening and slight surrounding inflammation suggesting diverticulitis and/for colitis General Surgery consulted, and seen the patient in the emergency department, and will follow during stay CT scan also shows a curvilinear fluid-filled tubular structure measuring 2 cm in diameter in the left side of the pelvis which appears continuous with the uterus, with concern regarding tubo-ovarian abscess We will consult gynecology Placed on Unasyn 3 g IV every 6 hours Zofran 4 mg IV every 6 hours as needed Pantoprazole 40 mg IV daily N.p.o. NSS at 80 mL/h Acetaminophen 1 g IV every 8 hours as needed for mild pain or fever Chronic medical conditions: Hyperlipidemia-hold atorvastatin Hypothyroidism-hold levothyroxine Depression/insomnia-hold risperidone, trazodone and Ativan (2) Vomiting Nausea presence: with nausea Vomiting type: unspecified Qualified Code(s): R11.2 - Nausea with vomiting, unspecified
[2024-10-06] MEDS: LORazepam 0.5 MG TAB PO STA (00:31)
[2024-10-06] MEDS ORDERED: ONDANSETRON INJ 2 MG/ML 2 ML VIAL IV PRN (01:03)
[2024-10-06] MEDS: AMPICILLIN/SULBACTAM SOD 3,000 MG/100 ML BAG IV SCH ×2 (02:05→09:23)
[2024-10-06] MEDS: ACETAMINOPHEN 325 MG TAB PO PRN (02:10)
[2024-10-06] MEDS ORDERED: traZODone HCL 50 MG TAB PO PRN (03:22)
[2024-10-06] MEDS ORDERED: PNEUMOCOCCAL VACCINE (PCV20) 20-VAL CONJ-DIP CRM/PF 0.5 ML SYR IM ONE (03:50)
--- NOTE | 2024-10-06 05:36 | Billing Data ---
Date of Service October 06, 2024 Coding Level of Care Code 39285 INT INP/OBS CARE
[2024-10-06] MEDS ORDERED: LEVOTHYROXINE SODIUM 88 MCG TABLET PO SCH (06:30)
--- NOTE | 2024-10-06 06:47 | Hospitalist Progress Note ---
Date of Service October 06, 2024 Assessment & Plan (1) Intra-abdominal abscess: (2) Vomiting: (3) Diverticulitis: (4) Hyperlipidemia: (5) Thyroid disease: (6) Depression: Plan Patient is a 84 yo F w/ a PMHx of diverticulitis, Hx of BCC, osteoporosis, depression, hypothyroidism, anemia, Hx of breast cancer, presenting to ED on 10/05 w/ LLQ pain of about a week, accompanied by N/V and a fever of 102 F. Worsening pain overnight and sepsis symptoms of increased HR, RR, WBC, and borderline hypotensive. #Left-side tubo-ovarian abscess - CT: There is a curvilinear fluid-filled tubular structure measuring 2 cm in diameter in the left side of the pelvis which appears contiguous with the uterus. Consider tubo-ovarian abscess. - ObGyn consulted - said that previous imaging has also shown similar findings and looks stable, taking patient to ultrasound to ensure measurements - Continue Unasyn, 3 g, q6hrs #Mild diverticulitis of sigmoid colon CT: There is diverticulosis throughout the sigmoid colon with mild wall thicken ing and slight surrounding inflammation suggesting diverticulitis and/or colitis. - Revisit of CT scan showed perforation of diverticulitis, general surgery re- engaged for I&D - Continue Unasyn, 3 g, q6hrs - Diet-Clear fluids after surgery #Sepsis - Patient presenting with pulse 93, Resp 22, WBC of 13.67 meeting SIRS criteria for sepsis - Most likely cause of this is the perforation of the diverticulitis as source of infection - Start LR bolus of 1,000mL IV, then resume Maintenance IVF NSS 125mls/hr Chronic conditions #Depression/Insomnia - risperidone, trazodone, Ativan (night of admission) #hypothyroidism - levothyroxine, 88 mcg, PO, daily AM #Hypercholesterolemia - atorvastatin Code status: Full code Disposition: Med-Tele FENGI: NPO initially, Diet-Clear liquids, advance as tolerated VTE prophylaxis: SCD's (to knee) Admission and Anticipated Discharge Date Admission Date: October 06, 2024 Supervising Physician Co-Signing Physician Notes I personally examined the patient and verified all gonzales points of history and exam, discussed case, and agree with decision making with Dr Singh and Aleksandra Griffith MS2 abdominal pain - L/middle comes and goes in waves but also notably worse w c ough/abrupt movement. dr tate called me to discuss US - looking most c/w perforated diverticulitis. d/w pt in depth, answered all questions to the best of my ability and to her/'s satisfaction. vitals noted laying still in bed but surprisingly nad. heent nc at mmm cardio sl tachycardic breathing unlabored no accessory muscles good effort skin no rashes no pallor or icterus neuro no focal deficits abd: mod distention L sided tenderness w involuntary guarding no clear rebound but is firm; palpation on all of abdomen causes pain/tenderness. sepsis - peritonitis / perforated diverticulitis - on unasyn, IV fluids, surgical evaluation momentarily (updated surgery on US findings as well as my findings on exam). otherwise as above Subjective This morning pt reports pain worsening to 8/10 last night but mentioned it got significantly better with Tylenol. Still mentions some pain around her belly button. Every 5 minutes feels sharp cramp in stomach "Brain's horses but in the stomach". Pain right now is 2/3. She reports no episodes of n/v since yesterday, has had normal bowel movements, no melena, no hematochezia. Once episode of diarrhea after CT scan last night. Has been urinating with no issue. No chest palpitations, wheezing, cough, numbness or tingling in peripheral limbs. Does mention some shortness of breath, but mentions has had this chronically. Review of Systems Review of Systems: as noted above in the HPI Physical Exam Constitutional: WD/WN, vitals as above Respiratory: normal respiratory effort, lungs clear to auscultation Cardiovascular: RRR, no murmur, no edema Gastrointestinal (Abdomen): Inspection/Auscultation: + abdomen distended and normal bowel sounds Percussion/Palpation: + abdomen tender (RLQ and epigastric pain ) and + abdomen firm Psychiatric: A+Ox3, euthymic affect Results & Data Results & Data Vital Signs (Past 12 Hours) Vital Signs Temp Pulse Pulse Resp BP BP Pulse Ox 10/06/24 03:54 91 H 10/06/24 03:00 36.5 C 93 H 18 106/54 L 98 10/06/24 02:30 112/63 10/06/24 02:30 88 22 112/63 98 10/06/24 02:00 85 24 108/61 96 10/06/24 01:30 87 24 106/58 L 95 10/06/24 01:00 86 22 111/66 95 10/06/24 00:34 95 H 22 113/79 97 10/05/24 23:30 88 24 116/64 96 10/05/24 23:00 86 20 115/64 96 10/05/24 22:40 124/67 10/05/24 22:39 90 28 H 124/67 96 10/05/24 22:00 90 25 H 95/57 L 93 10/05/24 21:42 93 H 25 H 93 10/05/24 21:30 97 H 25 H 100/57 L 94 10/05/24 21:19 126/76 10/05/24 21:19 100 H 22 126/76 94 10/05/24 20:54 102 H 22 10/05/24 20:11 95 10/05/24 20:08 126/79 10/05/24 20:06 115 H 10/05/24 20:03 117/67 10/05/24 19:54 36.9 C 117 H 18 90/51 L 94 O2 Del Method 10/06/24 03:54 10/06/24 03:00 Room Air 10/06/24 02:30 10/06/24 02:30 10/06/24 02:00 10/06/24 01:30 10/06/24 01:00 10/06/24 00:34 10/05/24 23:30 10/05/24 23:00 10/05/24 22:40 10/05/24 22:39 Room Air 10/05/24 22:00 Room Air 10/05/24 21:42 Room Air 10/05/24 21:30 Room Air 10/05/24 21:19 10/05/24 21:19 Room Air 10/05/24 20:54 10/05/24 20:11 Room Air 10/05/24 20:08 10/05/24 20:06 10/05/24 20:03 10/05/24 19:54 Room Air Laboratory Results 10/06/24 10/05/24 10/05/24 Range/Units 07:08 22:39 20:27 WBC 13.67 H (4.8-10.8) K/ul RBC 3.51 L (4.20-5.40) M/uL Hgb 9.5 L (12.0-16.0) g/dl Hct 29.8 L (37.0-47.0) % MCV 84.9 (80.0-100.0) fL MCH 27.1 (25.0-34.0) pg MCHC 31.9 L (32.0-36.0) g/dL RDW Std Deviation 47.2 H (36.4-46.3) fL RDW Coeff of Dinesh 15.3 H (11.5-14.5) % Plt Count 314 (130-400) K/uL MPV 10.1 (9.4-12.4) fL Immature Gran % (Auto) 0.4 % Neut % (Auto) 90.3 % Lymph % (Auto) 5.0 % [place] % (Auto) 4.2 % Eos % (Auto) 0.0 % Baso % (Auto) 0.1 % Neut # (Auto) 12.34 H (1.40-6.50) K/uL Lymph # (Auto) 0.69 L (1.20-3.40) K/uL [place] # (Auto) 0.57 (0.11-0.59) K/uL Eos # (Auto) 0.00 (0.00-0.50) K/uL Baso # (Auto) 0.02 (0.00-0.20) K/uL Immature Gran # (Auto) 0.05 (0.01-0.20) K/uL Sodium 135 L (136-145) mmol/L Potassium 4.3 (3.5-5.1) mmol/L Chloride 107 (98-107) mmol/L Carbon Dioxide 22 (21-32) mmol/L Anion Gap 6 (3-11) BUN 12 (6-23) mg/dl Creatinine 0.76 (0.6-1.2) mg/dl Est Cr Clr Drug Dosing 49.1 ml/min eGFR 76.74 BUN/Creatinine Ratio 15.8 (10-20) Glucose 121 H (70-99(Fasting)) mg/dl Lactate 1.9 (0.4-2.0) mmol/L Calcium 8.6 (8.6-10.3) mg/dl Magnesium (1.7-2.4) mg/dl Total Bilirubin (0.2-1.0) mg/dl AST (13-39) U/L ALT (7-52) U/L Alkaline Phosphatase (34-104) U/L Troponin I High Sens (0-14) pg/ml Total Protein (6.0-8.3) gm/dl Albumin (3.4-5.0) gm/dl Globulin (2.5-4.0) gm/dl Albumin/Globulin Ratio (0.9-2) Lipase (11-82) U/L Procalcitonin (0-0.5) ng/ml Urine Color Yellow Urine Appearance Clear (Clear) Urine pH 6.5 (4.5-7.5) Ur Specific [place] > 1.045 H (1.000-1.030) Urine Protein Negative (Negative) Urine Glucose (UA) Negative (Negative) Urine Ketones Negative (Negative) Urine Blood Negative (Negative) Urine Nitrite Negative (Negative) Urine Bilirubin Negative (Negative) Urine Urobilinogen Negative (Negative) Ur Leukocyte Esterase Negative (Negative) 10/05/24 Range/Units 20:04 WBC 9.68 (4.8-10.8) K/ul RBC 3.79 L (4.20-5.40) M/uL Hgb 10.3 L (12.0-16.0) g/dl Hct 31.3 L (37.0-47.0) % MCV 82.6 (80.0-100.0) fL MCH 27.2 (25.0-34.0) pg MCHC 32.9 (32.0-36.0) g/dL RDW Std Deviation 45.5 (36.4-46.3) fL RDW Coeff of Dinesh 15.2 H (11.5-14.5) % Plt Count 357 (130-400) K/uL MPV 10.2 (9.4-12.4) fL Immature Gran % (Auto) 0.2 % Neut % (Auto) 78.6 % Lymph % (Auto) 12.9 % [place] % (Auto) 8.0 % Eos % (Auto) 0.1 % Baso % (Auto) 0.2 % Neut # (Auto) 7.61 H (1.40-6.50) K/uL Lymph # (Auto) 1.25 (1.20-3.40) K/uL [place] # (Auto) 0.77 H (0.11-0.59) K/uL Eos # (Auto) 0.01 (0.00-0.50) K/uL Baso # (Auto) 0.02 (0.00-0.20) K/uL Immature Gran # (Auto) 0.02 (0.01-0.20) K/uL Sodium 131 L (136-145) mmol/L Potassium 4.0 (3.5-5.1) mmol/L Chloride 98 (98-107) mmol/L Carbon Dioxide 21 (21-32) mmol/L Anion Gap 12 H (3-11) BUN 17 (6-23) mg/dl Creatinine 0.89 (0.6-1.2) mg/dl Est Cr Clr Drug Dosing 42.3 ml/min eGFR 63.49 BUN/Creatinine Ratio 19.1 (10-20) Glucose 206 H (70-99(Fasting)) mg/dl Lactate (0.4-2.0) mmol/L Calcium 9.2 (8.6-10.3) mg/dl Magnesium 1.9 (1.7-2.4) mg/dl Total Bilirubin 0.6 (0.2-1.0) mg/dl AST 12 L (13-39) U/L ALT 6 L (7-52) U/L Alkaline Phosphatase 80 (34-104) U/L Troponin I High Sens 6.7 (0-14) pg/ml Total Protein 7.3 (6.0-8.3) gm/dl Albumin 3.5 (3.4-5.0) gm/dl Globulin 3.8 (2.5-4.0) gm/dl Albumin/Globulin Ratio 0.9 (0.9-2) Lipase 19 (11-82) U/L Procalcitonin 0.12 (0-0.5) ng/ml Urine Color Urine Appearance (Clear) Urine pH (4.5-7.5) Ur Specific [place] (1.000-1.030) Urine Protein (Negative) Urine Glucose (UA) (Negative) Urine Ketones (Negative) Urine Blood (Negative) Urine Nitrite (Negative) Urine Bilirubin (Negative) Urine Urobilinogen (Negative) Ur Leukocyte Esterase (Negative) Diagnostic Findings Abdomen/Pelvis CT 10/05/24 19:59 Exam(s): CT ABDOMEN + PELVIS With Contrast IV Amt: 90 ml optiray 320 EXAM: CT Abdomen and Pelvis With Intravenous Contrast CLINICAL HISTORY: Reason for exam: llq pain, vomiting. TECHNIQUE: Axial computed tomography images of the abdomen and pelvis with intravenous contrast. CTDI is 16.73 mGy and DLP is 757.09 mGy-cm. Automated exposure control was utilized for the study. A dose lowering technique was utilized adhering to the principles of ALARA. CONTRAST: Patient received 90 ml optiray 320 of IV contrast COMPARISON: May 16, 2024 FINDINGS: Lung bases: Unremarkable. No mass. No consolidation. Mediastinum: There is a hiatal hernia measuring 10 cm transverse containing approximately one third of the stomach. ABDOMEN: Liver: Unremarkable. No mass. Gallbladder and bile ducts: Unremarkable. No calcified stones. No ductal dilation. Pancreas: Unremarkable. No mass. No ductal dilation. Spleen: Unremarkable. No splenomegaly. Adrenals: Unremarkable. No mass. Kidneys and ureters: Unremarkable. No solid mass. No hydronephrosis. Stomach and bowel: There is diverticulosis throughout the sigmoid colon with mild wall thickening and slight surrounding inflammation suggesting diverticulitis and/or colitis. Mild diffuse mesenteric edema in the lower abdomen and pelvis most plus associated with small bowel loops suggesting enteritis. No obstruction. PELVIS: Appendix: No findings to suggest acute appendicitis. Bladder: Unremarkable. No mass. Reproductive: There is a curvilinear fluid-filled tubular structure measuring 2 cm in diameter in the left side of the pelvis which appears contiguous with the uterus. ABDOMEN and PELVIS: Intraperitoneal space: Small to moderate amount of free fluid in the pelvis. No free air. Bones/joints: Mild to moderate degenerative changes throughout the spine. No acute fracture or subluxation is seen. Soft tissues: Unremarkable. Vasculature: The abdominal aorta is mildly calcified but nondilated. Lymph nodes: Unremarkable. No enlarged lymph nodes. IMPRESSION: 1. There is a curvilinear fluid-filled tubular structure measuring 2 cm in diameter in the left side of the pelvis which appears contiguous with the uterus. Consider tubo-ovarian abscess. 2. There is diverticulosis throughout the sigmoid colon with mild wall thickening and slight surrounding inflammation suggesting diverticulitis and/or colitis. 3. Mild diffuse mesenteric edema in the lower abdomen and pelvis most plus associated with small bowel loops suggesting enteritis. 4. There is a hiatal hernia measuring 10 cm transverse containing approximately one third of the stomach. Electronically signed by: Leonardo Amato MD 10/05/24 22:13 PM Resident Activity Tracking Resident Involvement: Resident Care Provided Care Provided: Adult Hospital Medicine (2) Vomiting Nausea presence: with nausea Vomiting type: unspecified Qualified Code(s): R11.2 - Nausea with vomiting, unspecified
[2024-10-06] MEDS: ACETAMINOPHEN 1,000 MG/100 ML VIAL IV STA (06:52)
[2024-10-06] MEDS: SODIUM CHLORIDE 0.9% 500 ML IV SCH (06:52)
[2024-10-06 07:24] LABS: Hematocrit (blood only) 29.8 % (37.0-47.0); Hemoglobin 9.5 g/dl (12.0-16.0); Mean Corpuscular Hemoglobin 27.1 pg (25.0-34.0); Mean Corpuscular Hgb Conc 31.9 g/dL (32.0-36.0); Mean Corpuscular Volume 84.9 fL (80.0-100.0); Mean Platelet Volume 10.1 fL (9.4-12.4); Platelet Count 314 K/uL (130-400); RDW Coefficient of Variation 15.3 % (11.5-14.5); RDW Standard Deviation 47.2 fL (36.4-46.3); Red Blood Count 3.51 M/uL (4.20-5.40); White Blood Count 13.67 K/ul (4.8-10.8)
[2024-10-06] MEDS ORDERED: SODIUM CHLORIDE 0.9% 500 ML IV SCH ×2 (07:30→14:45)
[2024-10-06 07:45] LABS: Basophils # (auto) 0.02 K/uL (0.00-0.20); Basophils % (auto) 0.1 %; Immature Granulocytes # (auto) 0.05 K/uL (0.01-0.20); Immature Granulocytes % (auto) 0.4 %; Lymphocytes # (auto) 0.69 K/uL (1.20-3.40); Monocytes # (auto) 0.57 K/uL (0.11-0.59); Monocytes % (auto) 4.2 %; Neutrophils # (auto) 12.34 K/uL (1.40-6.50); Neutrophils % (auto) 90.3 %
[2024-10-06 07:51] LABS: BUN Creatinine Ratio 15.8 (10-20); Calcium 8.6 mg/dl (8.6-10.3); Creatinine Clr Calc Pharmacy 49.1 ml/min; Potassium 4.3 mmol/L (3.5-5.1)
[2024-10-06] MEDS ORDERED: VITAMIN B COMPLEX TAB PO SCH (09:00)
[2024-10-06] MEDS ORDERED: CHOLECALCIFEROL 125 MCG (5,000 UNITS) TAB PO SCH (09:00)
[2024-10-06] MEDS: PANTOprazole 40 MG/10 ML SYR IV SCH (11:07)
[2024-10-06] MEDS: LACTATED RINGER'S 1,000 ML IV ONE (11:07)
--- NOTE | 2024-10-06 11:08 | OB/GYN Consultation ---
Date of Consultation October 06, 2024 Assessment & Plan (1) Peritonitis (acute) generalized: When I first heard that [facility] was consulted on Renea, I reviewed her imaging in the EHR. The question of TOA in the L adnexa was noted. Prior CT scans of the abd/pel were present in EHR going back to 2019, and I reviewed the images on these, which appeared to show fluid has been present in the L tube and extending into the uterus for at least this many years. I then received a phone call from Dr. Talley, who was aware of the consult, and wanted to share with me that she was aware of this patient having a long history of a known hydrosalpinx. I spoke with Dr. Landa in radiology and discussed this case. We discussed the prior CT's and US's, and he agreed that there was evidence of an abnormality present chronically in that L fallopian tube. He also felt he was seeing evidence of bowel perforation on the current CT scan. The patient was sent for US today to get a better look at the reproductive organs and the amount/quality of the fluid inside them. While he read that US, I went and evaluated the patient personally. She confirmed the long known history of a hydrosalpinx on the left. No significant risk for TOA / STD in her history, and no history of unexplained vaginal discharge or PMB to suggest a malignancy or fistula. I then spoke again with Dr. Landa who continues to see evidence of perforation of the bowel, which is consistent with my exam findings clinically. He also notes (and I agree) that the fluid in the tube and uterus as seen on US is both complex, suggesting pus/blood rather than serous liquid, and has a small amount of gas in it, which suggests there may be a fistula from bowel to repro organs. Longstanding hydrosalpinx, with secondary infection of the chronic fluid in the L tube following a bowel perforation and resulting peritonitis, seems most likely to me. A fistula, if chronically present, would almost certainly have led to vaginal discharge and/or PMB - but I cannot r/o (and in fact agree we should suspect) that one may now exist. General Surgery, Dr. Mckeon, is involved in this case. I will communicate directly with him and would be available to assist should it be felt that surgical management is required and would involve the uterus/tubes/ovaries. History of Present Illness Reason for Consultation: Concern for L TOA Attending Physician: Olu Romero DO History of Present Illness Renea is an 84yo female who is admitted currently for abdominal pain, fever and leukocytosis. She had CT imaging yesterday evening via the ER, read as colitis / diverticulitis and concern for L TOA due to a tubular structure filled with fluid and adjoining the uterus. Renea has had several days of worsening global abdominal pain, gradually worsening to include vomiting and diarrhea yesterday. She was brought to the ER. Denies hematochezia or hematemesis. Positive subjective fever/chills but no temp taken at home. This felt similar to her to prior episodes of diverticulitis / colitis which she has suffered repeatedly in the last 5 years. Her TI[employer] history is notable for 3 pregnancies resulting in term 's. Denies any history of STDs, no prior TIRE MAKER surgery at all, and no history of abnormal paps, plus no history of postmenopausal bleeding. Menopausal since her early 50s. She has not been sexually active in "a long time," confirms that it specifically has been >1 year since last vaginal penetration. She also notes she has a long history of left hydrosalpinx for which she has been followed over several decades now. While she has not had local TIRE MAKER care for years, she was seen by Dr. Martínez for this previously and has also had f/u with specialists at [facility] who have advocated observation rather than surgical excision ever since it was first found. Allergies Allergy/AdvReac Type Severity Reaction Status Date / Time Corticosteroids AdvReac Severe "MANIC" Verified 10/05/24 21:55 (Glucocorticoids) succinylcholine AdvReac Severe Agitated Verified 10/05/24 21:55 Home Medications Medication Instructions Recorded Confirmed Type atorvastatin 10 mg tablet 10 mg PO HS 11/11/21 10/05/24 History levothyroxine 88 mcg tablet 88 mcg PO DAILYBB 02/09/23 10/05/24 History risperidone 1 mg tablet 1 mg PO HS 02/09/23 10/05/24 History trazodone 50 mg tablet 25 mg PO HS PRN Sleep 02/09/23 10/05/24 History cholecalciferol (vitamin D3) 125 125 mcg PO DAILY 09/01/24 10/05/24 History mcg (5,000 unit) capsule vitamin B complex 1 tab PO DAILY 09/01/24 10/05/24 History turmeric 400 mg capsule 800 mg PO DAILY 10/05/24 10/05/24 History Patient History Medical History Hypothyroidism Breast cancer Surgical History H/O colonoscopy H/O elbow surgery S/P breast lumpectomy Family History Family/Other Breast cancer Father Lung cancer Other Myocardial infarction Denies family history of Ovarian cancer Prostate cancer Colorectal cancer Social History Smoking Status: Former smoker Tobacco Type: Cigarettes Age Started Using Tobacco: 19; Age Quit Using Tobacco: 29; packs per day: 0.25; Second Hand Exposure: No; Do You Dip or Chew Tobacco: No; Hx Alcohol Use: Yes Alcohol type: wine Alcohol Intake Frequency: Monthly or Less Hx Substance Use: No Preferred Language: Ken[place] Beliefs That Will Affect Care: None marital status: Current Living Situation: Spouse Current Living Situation Comment: Pt lives in a two story home with her spouse current occupational status: retired How many Children do You have: 3 Other Information That Helps Us Care for You: No Feels Safe at Home: Yes Safety Concerns: Feels Safe At This Time Childhood Exposure to Second-Hand Smoke: No during the past year weight has: remained stable Dental Care, Regularly: Yes Physical Activity Frequency: 1-2 Times per Week Seatbelt Use: always Sunscreen Use: Yes Assistive Devices: Glasses Physical Exam Physical Exam: Lying supine with head slightly elevated. Conversant, but hesitant to move in bed. Constitutional: Appears nontoxic, stated age. Respiratory: With prolonged conversation does stop to catch her breath on two noted occasions. However at rest she is not in any resp distress. Cardiovascular: Tele monitor in place, normal to mildly tachycardic during conversation. Regular rhythm. Gastrointestinal (Abdomen): Mild distension. + Peritonitic pain with any bumping of bed or shifting of blankets over abdomen. Significant pressure was not able to be applied 2/2 pain, but gentle palpation just barely indenting her skin shows equal reluctance to be touched over entire abdomen from superior to inferior aspect and R=L. No incisions/scars on abdomen noted. Musculoskeletal: Reluctant to move currently, unable to assess. Skin: No significant rashes Genitourinary: Prior CT scans reviewed annually from [id number] and prior pelvic scans reviewed including today and 2006. Pelvic examination not currently performed due to patient supine in a non-TIRE MAKER bed and unable to reposition without significant peritonitic pain. Lymphatic: No significant inguinal lymphadenopathy. Results & Data Vital Signs (Past 12 Hours) Vital Signs Temp Pulse Pulse Resp BP BP Pulse Ox 10/06/24 08:00 89 10/06/24 07:34 97.3 F L 87 20 93/56 L 93 10/06/24 03:54 91 H 10/06/24 03:00 97.7 F 93 H 18 106/54 L 98 10/06/24 02:30 112/63 10/06/24 02:30 88 22 112/63 98 10/06/24 02:00 85 24 108/61 96 10/06/24 01:30 87 24 106/58 L 95 10/06/24 01:00 86 22 111/66 95 10/06/24 00:34 95 H 22 113/79 97 10/05/24 23:30 88 24 116/64 96 10/05/24 23:00 86 20 115/64 96 O2 Del Method 10/06/24 08:00 10/06/24 07:34 Room Air 10/06/24 03:54 10/06/24 03:00 Room Air 10/06/24 02:30 10/06/24 02:30 10/06/24 02:00 10/06/24 01:30 10/06/24 01:00 10/06/24 00:34 10/05/24 23:30 10/05/24 23:00 Laboratory Results Laboratory Results - last 24 hr 10/05/24 10/05/24 10/05/24 20:04 20:27 22:39 WBC 9.68 RBC 3.79 L Hgb 10.3 L Hct 31.3 L MCV 82.6 MCH 27.2 MCHC 32.9 RDW Std Deviation 45.5 RDW Coeff of Dinesh 15.2 H Plt Count 357 MPV 10.2 Immature Gran % (Auto) 0.2 Neut % (Auto) 78.6 Lymph % (Auto) 12.9 [place] % (Auto) 8.0 Eos % (Auto) 0.1 Baso % (Auto) 0.2 Neut # (Auto) 7.61 H Lymph # (Auto) 1.25 [place] # (Auto) 0.77 H Eos # (Auto) 0.01 Baso # (Auto) 0.02 Immature Gran # (Auto) 0.02 Sodium 131 L Potassium 4.0 Chloride 98 Carbon Dioxide 21 Anion Gap 12 H BUN 17 Creatinine 0.89 Est Cr Clr Drug Dosing 42.3 eGFR 63.49 BUN/Creatinine Ratio 19.1 Glucose 206 H Lactate 1.9 Calcium 9.2 Magnesium 1.9 Total Bilirubin 0.6 AST 12 L ALT 6 L Alkaline Phosphatase 80 Troponin I High Sens 6.7 Total Protein 7.3 Albumin 3.5 Globulin 3.8 Albumin/Globulin Ratio 0.9 Lipase 19 Procalcitonin 0.12 Urine Color Yellow Urine Appearance Clear Urine pH 6.5 Ur Specific [place] > 1.045 H Urine Protein Negative Urine Glucose (UA) Negative Urine Ketones Negative Urine Blood Negative Urine Nitrite Negative Urine Bilirubin Negative Urine Urobilinogen Negative Ur Leukocyte Esterase Negative 10/06/24 07:08 WBC 13.67 H RBC 3.51 L Hgb 9.5 L Hct 29.8 L MCV 84.9 MCH 27.1 MCHC 31.9 L RDW Std Deviation 47.2 H RDW Coeff of Dinesh 15.3 H Plt Count 314 MPV 10.1 Immature Gran % (Auto) 0.4 Neut % (Auto) 90.3 Lymph % (Auto) 5.0 [place] % (Auto) 4.2 Eos % (Auto) 0.0 Baso % (Auto) 0.1 Neut # (Auto) 12.34 H Lymph # (Auto) 0.69 L [place] # (Auto) 0.57 Eos # (Auto) 0.00 Baso # (Auto) 0.02 Immature Gran # (Auto) 0.05 Sodium 135 L Potassium 4.3 Chloride 107 Carbon Dioxide 22 Anion Gap 6 BUN 12 Creatinine 0.76 Est Cr Clr Drug Dosing 49.1 eGFR 76.74 BUN/Creatinine Ratio 15.8 Glucose 121 H Lactate Calcium 8.6 Magnesium Total Bilirubin AST ALT Alkaline Phosphatase Troponin I High Sens Total Protein Albumin Globulin Albumin/Globulin Ratio Lipase Procalcitonin Urine Color Urine Appearance Urine pH Ur Specific [place] Urine Protein Urine Glucose (UA) Urine Ketones Urine Blood Urine Nitrite Urine Bilirubin Urine Urobilinogen Ur Leukocyte Esterase
--- NOTE | 2024-10-06 11:34 | Ultrasound Report ---
PELVIC ULTRASOUND CLINICAL HISTORY: Assess L fallopian tube, Endo. TA and TV pls. COMPARISON STUDY: CT of the abdomen and pelvis October 05, 2024. TECHNIQUE: Transabdominal and transvaginal sonography of the pelvis was performed. FINDINGS: The uterus measures 6.3 x 3 x 3 cm. Endometrial thickness is 6 mm. There is simple appearin g fluid within the endometrial cavity. The ovaries were not visualized. Moderate complex septated flu id within the right adnexa is noted. No well-defined wall is identified. There is a complex tubular a bnormality within the left adnexa which corresponds to the finding on CT of October 05, 2024. This cristopher ures 6.4 x 3.9 x 5.4 cm and represents a dilated left fallopian tube. Internal echoes within the cont ents are noted. There is hyperemia of the left fallopian tube wall. Of note, dilated left fallopian t ube was noted on earlier CTs dating back to October 24, 2006. IMPRESSION: 1. Dilated hyperemic left fallopian tube which contains complex hypoechoic material. Given the findin gs on CT of October 05, 2024, this favors a left pyosalpinx which is secondary to sigmoid diverticuliti s with possible underlying fistula. 2. Complex septated fluid within the pelvis which is also likely infectious and related to diverticul itis. This does not appear to represent a well-defined abscess at this time. 3. Nonvisualization of the ovaries. 4. Small amount of simple appearing fluid within the endometrial cavity. ACT 112: Negative or not required by law. Electronically signed by: Philip Landa M.D. 10/06/2024 11:32 AM
--- NOTE | 2024-10-06 12:31 | Billing Data ---
Date of Service October 06, 2024 Coding Level of Care Code 52324 SUB INP/OBS CARE MIN
--- NOTE | 2024-10-06 13:03 | Surgery Progress Note ---
Date of Service October 06, 2024 Assessment & Plan (1) Diverticulitis: Plan: discussed case with pt and her family at bedside, Dr. Del Toro, Dr. Landa and Dr. Romero. 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 currently stable. we discussed exploratory laparotomy vs continued conservative management and the pros/cons/risks of each. it would require a "temporary" colostomy most likely. we discussed that if we try to continue conservative management she may need emergent surgery at any time. I answered all of their questions. she states she is feeling considerably better and would like to continue to try conservative management to avoid surgery. in her current state I don't think this is unreasonable. will monitor her closely for any signs of deterioration. (2) Peritonitis (acute) generalized: Admission and Anticipated Discharge Date Admission Date: October 06, 2024 Subjective pt seen. states she is feeling considerably better than yesterday. having some "spasms" periodically and uncomfortable when she moves but feels improved. Physical Exam Constitutional: WD/WN, vitals as above no acute distress and not ill appearing Eyes: PERRL, conjunctivae normal, anicteric sclerae EOM intact bilaterally ENMT: external ear and nose normal, oropharynx normal Ears: no hearing impairment Neck: trachea midline, no thyromegaly Respiratory: normal respiratory effort; no respiratory distress and does not use accessory muscles Cardiovascular: Rate/Rhythm: regular rate and regular rhythm Gastrointestinal (Abdomen): soft. diffuse tenderness in lower abdomen. negative rebound. neg heel strike. Skin: no rashes, warm and dry Psychiatric: Orientation: alert, oriented x 3 and cooperative Results & Data Vital Signs (Past 12 Hours) Vital Signs Temp Pulse Pulse Resp BP BP Pulse Ox 10/06/24 11:11 36.7 C 96 H 19 119/69 97 10/06/24 08:00 89 10/06/24 07:34 36.3 C L 87 20 93/56 L 93 10/06/24 03:54 91 H 10/06/24 03:00 36.5 C 93 H 18 106/54 L 98 10/06/24 02:30 112/63 10/06/24 02:30 88 22 112/63 98 10/06/24 02:00 85 24 108/61 96 10/06/24 01:30 87 24 106/58 L 95 10/06/24 01:00 86 22 111/66 95 O2 Del Method 10/06/24 11:11 Room Air 10/06/24 08:00 10/06/24 07:34 Room Air 10/06/24 03:54 10/06/24 03:00 Room Air 10/06/24 02:30 10/06/24 02:30 10/06/24 02:00 10/06/24 01:30 10/06/24 01:00 PG Care Time/CCT Total # of Minutes Spent Total Time Spent with Patient: Total time spent is greater than 50% in coordination of care (as documented) at patient's floor/unit and/or counseling patient: Coding Level of Care Code 52529 SUB INP/OBS CARE MIN Diagnoses Diverticulitis K57.92 Peritonitis (acute) generalized K65.0
[2024-10-06] MEDS: SODIUM CHLORIDE 0.9% 1,000 ML IV SCH (14:48)
[2024-10-06] MEDS: ACETAMINOPHEN 1,000 MG/100 ML VIAL IV PRN (14:48)
[2024-10-06] MEDS: SODIUM CHLORIDE 0.9% 50 ML BAG IV STA (15:20)
[2024-10-06] MEDS: risperiDONE 1 MG TABLET PO SCH (20:39)
[2024-10-06] MEDS: ATORVASTATIN 10 MG TAB PO SCH (20:39)
[2024-10-06] MEDS ORDERED: risperiDONE 1 MG TABLET PO SCH (21:00)
[2024-10-06] MEDS ORDERED: ATORVASTATIN 10 MG TAB PO SCH (21:00)
[2024-10-06] MEDS: traZODone HCL 50 MG TAB PO PRN (21:48)
[2024-10-07] MEDS: ACETAMINOPHEN 500 MG TAB PO PRN (00:25)
[2024-10-07] MEDS: LEVOTHYROXINE SODIUM 88 MCG TABLET PO SCH (06:13)
[2024-10-07 06:41] LABS: Hematocrit (blood only) 26.4 % (37.0-47.0); Hemoglobin 8.4 g/dl (12.0-16.0); Mean Corpuscular Hemoglobin 26.8 pg (25.0-34.0); Mean Corpuscular Hgb Conc 31.8 g/dL (32.0-36.0); Mean Corpuscular Volume 84.3 fL (80.0-100.0); Mean Platelet Volume 10.3 fL (9.4-12.4); Platelet Count 293 K/uL (130-400); RDW Coefficient of Variation 15.8 % (11.5-14.5); RDW Standard Deviation 49.1 fL (36.4-46.3); Red Blood Count 3.13 M/uL (4.20-5.40); White Blood Count 15.61 K/ul (4.8-10.8)
--- NOTE | 2024-10-07 06:43 | Electrocardiogram Report ---
Test Reason : Blood Pressure : */* mmHG Vent. Rate : 108 BPM Atrial Rate : 108 BPM P-R Int : 170 ms QRS Dur : 80 ms QT Int : 338 ms P-R-T Axes : 92 -10 39 degrees QTcB Int : 452 ms Sinus tachycardia with Premature atrial complexes Minimal voltage criteria for LVH, may be normal variant ( R in aVL ) Borderline ECG When compared with ECG of 02-Jul-2014 11:02, T wave inversion no longer evident in Anterolateral leads Confirmed by Cordell Villa ([id number]) on 10/07/2024 6:42:56 AM Referred By: REFERRED SELF Confirmed By: Cordell Villa
[2024-10-07 06:51] LABS: Albumin Globulin Ratio 0.9 (0.9-2); Albumin Level 2.8 gm/dl (3.4-5.0); BUN Creatinine Ratio 15.3 (10-20); Bilirubin,Total 0.5 mg/dl (0.2-1.0); Calcium 8.1 mg/dl (8.6-10.3); Creatinine Clr Calc Pharmacy 51.9 ml/min; Globulin 3.1 gm/dl (2.5-4.0); Potassium 3.7 mmol/L (3.5-5.1); Total Protein 5.9 gm/dl (6.0-8.3)
--- NOTE | 2024-10-07 06:53 | Hospitalist Progress Note ---
Date of Service October 07, 2024 Assessment & Plan (1) Intra-abdominal abscess: (2) Vomiting: (3) Diverticulitis: (4) Hyperlipidemia: (5) Thyroid disease: (6) Depression: Plan Patient is a 84 yo F w/ a PMHx of diverticulitis, Hx of BCC, osteoporosis, depression, hypothyroidism, anemia, Hx of breast cancer, presenting to ED on 10/05 w/ LLQ pain of about a week, accompanied by N/V and a fever of 102 F. Worsening pain overnight and sepsis symptoms of increased HR, RR, WBC, and borderline hypotensive. #Left-side tubo-ovarian abscess - CT: There is a curvilinear fluid-filled tubular structure measuring 2 cm in diameter in the left side of the pelvis which appears contiguous with the uterus. Consider tubo-ovarian abscess. 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 - Revisit of CT scan and findings form ultrasound indicated inflammation and evidence of perforation of diverticulitis, gen surg consulted with decision for conservative management - Continue Unasyn, 3 g, q6hrs - Diet-NPO due to chance of emergent surgery. clear fluids post-surgery (if done) #Sepsis - Patient presenting with pulse 104, Resp 20, WBC of 15.61 meeting SIRS criteria for sepsis - Pulse was in the 90s yesterday and WBC was 13 - Most likely cause of this is the perforation of the diverticulitis as source of infection - Switch maintenance fluid to IVF LR 1,000 mls @ 125 mls/hr to avoid metabolic acidosis Chronic conditions #Depression/Insomnia - Hold risperidone, trazodone - Ativan PRN qhs #hypothyroidism - Hold levothyroxine, 88 mcg, PO, daily AM #Hypercholesterolemia - Hold atorvastatin Code status: Full code Disposition: Med-Tele FENGI: NPO initially VTE prophylaxis: SCD's (to knee) Admission and Anticipated Discharge Date Admission Date: October 06, 2024 Supervising Physician Co-Signing Physician Notes I personally examined the patient and verified all gonzales points of history and exam, discussed case, and agree with decision making with Dr Singh and Aleksandra Griffith MS2 pain actually a bit better and waves coming less often less intense. no f/c/s. vitals noted - most notable is HR up somewhat. abd softer than yesterday still fairly distended and tender but less rigid no rebound. sepsis - peritonitis / perforated diverticulitis - on unasyn, IV fluids, for now trial of conservative care - pain/exam better, HR/WBC worse - thus far OK to continue conservative care (as is the patient's preferred approach) but continue to watch closely otherwise as above Subjective Patient reports feeling better this morning with no pain this morning. She mentions that there have been little to no episodes of sharp pain with cramping. She said she did require tylenol twice yesterday night. She has been voiding normally, but does mention episodes of diarrhea this morning. No chest pain, SOB, fevers, chills, night sweats, no melena, no hematochezia, no N/V. She has been less fatigued, but more thirsty so has been increasing her ice chips. Review of Systems Review of Systems: as noted above in the HPI Physical Exam Constitutional: WD/WN, vitals as above Respiratory: normal respiratory effort, lungs clear to auscultation Cardiovascular: RRR, no murmur, no edema Gastrointestinal (Abdomen): Inspection/Auscultation: + abdomen distended and normal bowel sounds Percussion/Palpation: + abdomen tender (RLQ and hypogastric pain, less pain upon palpation since yesterday) + rebound tenderness Psychiatric: A+Ox3, euthymic affect Results & Data Results & Data Vital Signs (Past 12 Hours) Vital Signs Temp Pulse Pulse Resp BP Pulse Ox O2 Del Method 10/06/24 23:04 108 H 10/06/24 22:31 114 H 16 149/80 H 93 Room Air 10/06/24 19:23 37.2 C 101 H 16 135/66 94 Room Air Resident Activity Tracking Resident Involvement: Resident Care Provided Care Provided: Adult Hospital Medicine (2) Vomiting Nausea presence: with nausea Vomiting type: unspecified Qualified Code(s): R11.2 - Nausea with vomiting, unspecified (4) Hyperlipidemia Hyperlipidemia type: unspecified Qualified Code(s): E78.5 - Hyperlipidemia, unspecified (6) Depression Depression Type: unspecified Qualified Code(s): F32.A - Depression, unspecified
[2024-10-07 07:01] LABS: Basophils # (auto) 0.02 K/uL (0.00-0.20); Basophils % (auto) 0.1 %; Eosinophils # (auto) 0.01 K/uL (0.00-0.50); Eosinophils % (auto) 0.1 %; Immature Granulocytes # (auto) 0.09 K/uL (0.01-0.20); Immature Granulocytes % (auto) 0.6 %; Lymphocytes # (auto) 0.58 K/uL (1.20-3.40); Lymphocytes % (auto) 3.7 %; Monocytes # (auto) 0.61 K/uL (0.11-0.59); Monocytes % (auto) 3.9 %; Neutrophils % (auto) 91.6 %
--- NOTE | 2024-10-07 07:40 | Surgery Progress Note ---
Date of Service October 07, 2024 Assessment & Plan (1) Diverticulitis: Plan: Patient with contained perforation of sigmoid colon 2/2 diverticulitis with concern for possible fistula formation to gynecological organs and + pyosalpinx Today WBC up to 15 (13), Hbg 8.4 (9.5). Vitals show Tmax 99, stable blood pressures, with HRs 100-110s Patient clinically feeling improvement in her symptoms. Pain controlled. + BM mixed with loose stools She does remain fairly tender on examination, mostly LLQ and low midline regions Encouraging pt is feeling overall better although has elevated WBC and tenderness on exam we will continue to monitor the patient very closely Continue NPO/IVF/IV Abx. Small amount of ice okay for dry mouth but would not initiate clears We will follow up again later today and keep a close eye on the patient for any signs of deterioration as above. pt stating her abdominal pain continues to improve. having some loose stools today as well as a cough. her main c/o is cough and fatigue. will check a cxr. will add some questran for loose bm's. continue to monitor. still not out of the lai for needing surgery/Bond procedure. Admission and Anticipated Discharge Date Admission Date: October 06, 2024 Subjective Patient reports feeling pretty good and ongoing improvement since admission. She said she had a decent BM yesterday along with then two loose stools thereafter that came along urgently. She required some tylenol overnight with relief of her pain and feels quite well this AM unless her abdomen is palpated upon. No CP/SOB, n/v. Feels thirsty. Peeing without issues. Physical Exam Physical Exam: awake/alert, no distress Respiratory: normal respiratory effort Gastrointestinal (Abdomen): Inspection/Auscultation: + abdomen distended (moderate) Percussion/Palpation: + abdomen tender (ttp in LLQ and mid/lower abdomen) Results & Data Vital Signs (Past 12 Hours) Vital Signs Pulse Pulse Resp BP Pulse Ox O2 Del Method 10/06/24 23:04 108 H 10/06/24 22:31 114 H 16 149/80 H 93 Room Air PG Care Time/CCT Total # of Minutes Spent Total Time Spent with Patient: Total time spent is greater than 50% in coordination of care (as documented) at patient's floor/unit and/or counseling patient: Coding Level of Care Code 86198 SUB INP/OBS CARE 08/21MIN Diagnoses Diverticulitis K57.92
[2024-10-07] MEDS: LACTATED RINGER'S 1,000 ML IV SCH (12:28)
--- NOTE | 2024-10-07 12:57 | Billing Data ---
Date of Service October 07, 2024 Coding Level of Care Code 67602 SUB INP/OBS CARE MIN
--- NOTE | 2024-10-07 15:43 | XRay Report ---
XR chest 1V portable CLINICAL HISTORY: coughing COMPARISON STUDY: CT of the abdomen and pelvis dated 10/05/2024 FINDINGS: The patient has a large hiatal hernia which accounts for much of the retrocardiac density s een on the present examination. However, there does appear to be airspace disease in the lung as well resulting in obscuration of the left hemidiaphragm laterally. There is also some slight blunting of the costophrenic angles bilaterally. Cardiomegaly and pulmonary vascular congestion are present. Surg ical en are identified in the left axilla. IMPRESSION: Left basilar infiltrate consistent with pneumonia in the appropriate clinical context. ACT 112: Negative or not required by law. Electronically signed by: Kaitlin Jacobo M.D. 10/07/2024 3:40 PM
[2024-10-07] MEDS: 4.5GM X1 IV ONE (19:25)
[2024-10-07] MEDS: CHOLESTYRAMINE LIGHT 4 GM PKT PO SCH (22:25)
[2024-10-08] MEDS: PIPERACILLIN/TAZOBACTAM 4.5 GM/100 ML BAG IV SCH (00:05)
--- NOTE | 2024-10-08 06:44 | Hospitalist Progress Note ---
Date of Service October 08, 2024 Assessment & Plan (1) Intra-abdominal abscess: (2) Vomiting: (3) Diverticulitis: (4) Hyperlipidemia: (5) Thyroid disease: (6) Depression: Plan Patient is a 84 yo F w/ a PMHx of diverticulitis, Hx of BCC, osteoporosis, depression, hypothyroidism, anemia, Hx of breast cancer, presenting to ED on 10/05 w/ LLQ pain of about a week, accompanied by N/V and a fever of 102 F. WBC continues to increase and pt remains tachycardic, but reporting improvement in pain symptoms. Upper respiratory wheezing noted by pt with activity. No SOB or drop in O2 saturation #Left-side tubo-ovarian abscess - CT: There is a curvilinear fluid-filled tubular structure measuring 2 cm in diameter in the left side of the pelvis which appears contiguous with the uterus. Consider tubo-ovarian abscess. 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 CT addendum: Upon further review, note is made of extensive sigmoid diverticulosis with sigmoid colon wall thickening. There is pericolonic stranding. There are several tubular enhancing gas and fluid containing foci within the pelvis. The findings suggest a contained perforation of the sigmoid colon from diverticulitis with possible fistula formation. A tubular focus within the left adnexa contains fluid and gas. When correlating with same-day pelvic ultrasound, this favors pyosalpinx secondary to diverticulitis with underlying fistula formation. Small amount of ascites within the abdomen with mesenteric stranding. This raises the possibility of peritonitis which could be correlated clinically - Gen surg consulted and following Continue with decision for conservative management - Stopped Unasyn on 10/07 in favor of Zosyn IV 4.5 gm q8h - Continue NPO for bowel rest #Sepsis - Patient presenting with pulse ranging from 91-119, Resp 20, WBC increased from 15.61 on 10/07 to 17.38 today - Pt is afebrile and BP has been normal to mildly elevated - Most likely cause of this is the perforation of the diverticulitis as source of infection - Continue maintenance fluid to IVF LR 1,000 mls @ 125 mls/hr to avoid metabolic acidosis Chronic conditions #Depression/Insomnia - Allowed risperidone qhs with sip of water - Ativan PRN qhs #hypothyroidism - Hold levothyroxine, 88 mcg, PO, daily AM #Hypercholesterolemia - Hold atorvastatin Code status: Full code Disposition: Med-Tele FENGI: NPO wit exception of risperidone VTE prophylaxis: SCD's (to knee) Admission and Anticipated Discharge Date Admission Date: October 06, 2024 Supervising Physician Co-Signing Physician Notes I personally examined the patient and verified all gonzales points of history and exam, discussed case, and agree with decision making with Dr Singh feeling a good deal better. less pain. no sob. upper congestion persists. vitals noted nad heent nc at mmm breathing unlabored lungs clear just sl quiet bibasilar (does IS and then small coughing fit after) no accessory muscles no r/r/w. abd soft mod distention minimal tenderness without guarding/rebound/rigidity sepsis - peritonitis / perforated diverticulitis - on zosyn, IV fluids, for now trial of conservative care - pain and PE improving, labs show sl worsening WBC, HR still up - thus far OK to continue conservative care (as is the patient's preferred approach) but continue to watch closely. consider repeat CT in coming days otherwise as above Subjective Patient reports she had a good nights sleep. She continue with wheezing, especially when she is up moving around. She notes dry cough. She notes little abdominal pain, but says she had some sharp pains last night that were relieved by IV tylenol. She continues voiding normally, episodes of diarrhea have slowed down this morning. No chest pain, SOB, fevers, chills, night sweats, no melena, no hematochezia, no N/V. Review of Systems Review of Systems: as noted above in the HPI Physical Exam Constitutional: WD/WN, vitals as above ENMT: Nose: + nasal discharge Respiratory: normal respiratory effort, lungs clear to auscultation Auscultation: no wheezes Cardiovascular: RRR, no murmur, no edema Gastrointestinal (Abdomen): Inspection/Auscultation: + abdomen distended and normal bowel sounds Percussion/Palpation: + abdomen tender (RLQ < LLQ pain) and abdomen soft Psychiatric: A+Ox3, euthymic affect Genitourinary: no CVA tenderness Results & Data Results & Data Vital Signs (Past 12 Hours) Vital Signs Temp Pulse Pulse Resp BP Pulse Ox O2 Del Method 10/08/24 03:53 36.8 C 92 H 18 140/72 96 Room Air 10/07/24 22:59 36.9 C 110 H 20 164/87 H 96 Room Air 10/07/24 22:58 107 H 10/07/24 19:36 37.2 C 119 H 18 157/94 H 94 Room Air Resident Activity Tracking Resident Involvement: Resident Care Provided Care Provided: Adult Hospital Medicine (2) Vomiting Nausea presence: with nausea Vomiting type: unspecified Qualified Code(s): R11.2 - Nausea with vomiting, unspecified (4) Hyperlipidemia Hyperlipidemia type: unspecified Qualified Code(s): E78.5 - Hyperlipidemia, unspecified (6) Depression Depression Type: unspecified Qualified Code(s): F32.A - Depression, unspecified
[2024-10-08] MEDS: LACTATED RINGER'S 1,000 ML IV SCH (07:41)
[2024-10-08 08:38] LABS: Basophils # (auto) 0.03 K/uL (0.00-0.20); Basophils % (auto) 0.2 %; Eosinophils # (auto) 0.16 K/uL (0.00-0.50); Eosinophils % (auto) 0.9 %; Hemoglobin 9.1 g/dl (12.0-16.0); Immature Granulocytes # (auto) 0.11 K/uL (0.01-0.20); Immature Granulocytes % (auto) 0.6 %; Lymphocytes # (auto) 1.04 K/uL (1.20-3.40); Mean Corpuscular Hemoglobin 26.9 pg (25.0-34.0); Mean Corpuscular Hgb Conc 31.4 g/dL (32.0-36.0); Mean Corpuscular Volume 85.8 fL (80.0-100.0); Mean Platelet Volume 10.1 fL (9.4-12.4); Monocytes # (auto) 0.77 K/uL (0.11-0.59); Monocytes % (auto) 4.4 %; Neutrophils # (auto) 15.27 K/uL (1.40-6.50); Neutrophils % (auto) 87.9 %; Platelet Count 333 K/uL (130-400); RDW Standard Deviation 50.3 fL (36.4-46.3); Red Blood Count 3.38 M/uL (4.20-5.40); White Blood Count 17.38 K/ul (4.8-10.8)
[2024-10-08 08:44] LABS: BUN Creatinine Ratio 16.9 (10-20); Calcium 8.6 mg/dl (8.6-10.3); Creatinine Clr Calc Pharmacy 48.5 ml/min; Potassium 3.5 mmol/L (3.5-5.1)
--- NOTE | 2024-10-08 10:21 | Surgery Progress Note ---
Date of Service October 08, 2024 Assessment & Plan (1) Diverticulitis: Plan: Clinically she looks pretty good. Afebrile. Her WBC is slightly trending up however I agree with the change to Zosyn last night. I do not believe we have enough indicators to proceed with an urgent laparotomy. Again we are not out of the lai for this but I think continued conservative management is worthwhile considering her surgical risk and age. She agrees with the plan. Will continue to monitor closely. Dr. Leal on-call for the weekend Admission and Anticipated Discharge Date Admission Date: October 06, 2024 Subjective Patient seen. Sitting up at bedside in no acute distress. States her loose bowels have improved. She did have some left lower quadrant discomfort overnight but that went away with Tylenol Physical Exam Constitutional: WD/WN, vitals as above no acute distress and not ill appearing Eyes: PERRL, conjunctivae normal, anicteric sclerae EOM intact bilaterally ENMT: external ear and nose normal, oropharynx normal Ears: no hearing impairment Neck: trachea midline, no thyromegaly Respiratory: normal respiratory effort; no respiratory distress and does not use accessory muscles Cardiovascular: Rate/Rhythm: regular rate and regular rhythm Gastrointestinal (Abdomen): Soft. Positive lower abdominal tenderness. Certainly no worse possibly slightly improved Skin: no rashes, warm and dry Psychiatric: Orientation: alert, oriented x 3 and cooperative Results & Data Vital Signs (Past 12 Hours) Vital Signs Temp Pulse Pulse Resp BP Pulse Ox O2 Del Method 10/08/24 07:53 91 H 10/08/24 07:49 Room Air 10/08/24 07:33 36.6 C 112 H 20 157/85 H 95 Room Air 10/08/24 03:53 36.8 C 92 H 18 140/72 96 Room Air 10/07/24 22:59 36.9 C 110 H 20 164/87 H 96 Room Air 10/07/24 22:58 107 H PG Care Time/CCT Total # of Minutes Spent Total Time Spent with Patient: Total time spent is greater than 50% in coordination of care (as documented) at patient's floor/unit and/or counseling patient: Coding Level of Care Code 07928 SUB INP/OBS CARE 08/21MIN Diagnoses Diverticulitis K57.92
--- NOTE | 2024-10-08 17:18 | Billing Data ---
Date of Service October 08, 2024 Coding Level of Care Code 90908 SUB INP/OBS CARE MIN
[2024-10-08 19:39] LABS: A calco-baum cmplx NotReported Not Detected (NotDetected); Bact fragilis Not Reported Not Detected (NotDetected); Blood Culture Id Panel PCR Panel Negative (NotDetected); C auris Not Reported Not Detected (NotDetected); Calbicans Not Reported Not Detected (NotDetected); Candida glabrata Not Reported Not Detected (NotDetected); Candida krusei Not Reported Not Detected (NotDetected); Cneoformans/gatti Not Reported Not Detected (NotDetected); Cparapsilosis Not Reported Not Detected (NotDetected); E cloacae compx Not Reported Not Detected (NotDetected); Efaecalis Not Reported Not Detected (NotDetected); Efaecium Not Reported Not Detected (NotDetected); Enterobacterales Not Reported Not Detected (NotDetected); Escherichia coli Not Reported Not Detected (NotDetected); H influenzae Not Reported Not Detected (NotDetected); K aerogenes Not Reported Not Detected (NotDetected); Koxytoca Not Reported Not Detected (NotDetected); Kpneumoniae grp Not Reported Not Detected (NotDetected); Lmonocyt Not Reported Not Detected (NotDetected); N meningitidis Not Reported Not Detected (NotDetected); P aeruginosa Not Reported Not Detected (NotDetected); Proteus spp Not Reported Not Detected (NotDetected); Salmonella spp Not Reported Not Detected (NotDetected); Staph lugdunensis Not Reported Not Detected (NotDetected); Staph spp. Not Reported Not Detected (NotDetected); Staphaureus Not Reported Not Detected (NotDetected); Staphepi Not Reported Not Detected (NotDetected); Stenmaltophilia Not Reported Not Detected (NotDetected); Strep agal(GrpB) Not Reported Not Detected (NotDetected); Strep pneum Not Reported Not Detected (NotDetected); Strep pyog (GrpA) Not Reported Not Detected (NotDetected); Strep spp Not Reported Not Detected (NotDetected)
[2024-10-09 08:01] LABS: Basophils # (auto) 0.03 K/uL (0.00-0.20); Basophils % (auto) 0.2 %; Eosinophils # (auto) 0.21 K/uL (0.00-0.50); Eosinophils % (auto) 1.7 %; Hematocrit (blood only) 25.4 % (37.0-47.0); Hemoglobin 8.1 g/dl (12.0-16.0); Immature Granulocytes # (auto) 0.09 K/uL (0.01-0.20); Immature Granulocytes % (auto) 0.7 %; Lymphocytes # (auto) 0.86 K/uL (1.20-3.40); Lymphocytes % (auto) 6.8 %; Mean Corpuscular Hemoglobin 26.8 pg (25.0-34.0); Mean Corpuscular Hgb Conc 31.9 g/dL (32.0-36.0); Mean Corpuscular Volume 84.1 fL (80.0-100.0); Monocytes # (auto) 0.72 K/uL (0.11-0.59); Monocytes % (auto) 5.7 %; Neutrophils % (auto) 84.9 %; Platelet Count 308 K/uL (130-400); RDW Standard Deviation 49.5 fL (36.4-46.3); Red Blood Count 3.02 M/uL (4.20-5.40); White Blood Count 12.61 K/ul (4.8-10.8)
[2024-10-09 08:08] LABS: BUN Creatinine Ratio 16.7 (10-20); Calcium 8.1 mg/dl (8.6-10.3); Creatinine Clr Calc Pharmacy 51.9 ml/min; Potassium 3.3 mmol/L (3.5-5.1)
--- NOTE | 2024-10-09 08:52 | XRay Report ---
HISTORY: Shortness of breath. TECHNIQUE: Portable chest radiograph. COMPARISON: Chest radiograph dated 10/07/2024. FINDINGS: quality assurance monitor leads overlie the chest. Moderate left and small right pleural effusions. Left lower lung/retrocardiac airspace opacity. Vascular congestion. No pneumothorax. Cardiomegaly. Left-sided aortic arch. No acute osseous abnormality. Left axillary surgical clips. Included upper abdomen is unremarkable. IMPRESSION: 1. Moderate left and small right pleural effusions. Left lung base/retrocardiac airspace opacity could represent pneumonia or atelectasis. 2. Cardiomegaly with mild vascular congestion. Electronically signed by Faustino Harris 10-09-2024 08:52 AM
[2024-10-09] MEDS: POTASSIUM CHLORIDE CRTAB 20 MEQ TABCR PO STA (09:20)
--- NOTE | 2024-10-09 09:42 | Hospitalist Progress Note ---
Date of Service October 09, 2024 Assessment & Plan (1) Intra-abdominal abscess: (2) Vomiting: (3) Diverticulitis: (4) Hyperlipidemia: (5) Thyroid disease: (6) Depression: Plan Patient is a 84 yo F w/ a PMHx of diverticulitis, Hx of BCC, osteoporosis, depression, hypothyroidism, anemia, Hx of breast cancer, presenting to ED on 10/05 w/ LLQ pain of about a week, accompanied by N/V and a fever of 102 F. WBC continues to increase and pt remains tachycardic, but reporting improvement in pain symptoms. Upper respiratory wheezing noted by pt with activity. No SOB or drop in O2 saturation #Perforated diverticulitis of sigmoid colon CT: There is diverticulosis throughout the sigmoid colon with mild wall thickening and slight surrounding inflammation suggesting diverticulitis and/or colitis. CT addendum: Upon further review, note is made of extensive sigmoid diverticulosis with sigmoid colon wall thickening. There is pericolonic stranding. There are several tubular enhancing gas and fluid containing foci within the pelvis. The findings suggest a contained perforation of the sigmoid colon from diverticulitis with possible fistula formation. A tubular focus within the left adnexa contains fluid and gas. When correlating with same-day pelvic ultrasound, this favors pyosalpinx secondary to diverticulitis with underlying fistula formation. Small amount of ascites within the abdomen with mesenteric stranding. This raises the possibility of peritonitis which could be correlated clinically - Gen surg consulted and following Continue with decision for conservative management - Stopped Unasyn on 10/07 in favor of Zosyn IV 4.5 gm q8h - WBC/neutrophil counts normalizing; vitals stable - Continue NPO for bowel rest with MIVF - Consider starting full liquid diet tomorrow if patient continues to improve #Left-side tubo-ovarian abscess - CT: There is a curvilinear fluid-filled tubular structure measuring 2 cm in diameter in the left side of the pelvis which appears contiguous with the uterus. Consider tubo-ovarian abscess. 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 Unchanged LLL infiltrate - Likely due to volume overload from 3-4 days of NPO and MIVF - Expect resolution over the next few days Chronic conditions #Depression/Insomnia - Allowed risperidone qhs with sip of water - Ativan PRN qhs #hypothyroidism - Hold levothyroxine, 88 mcg, PO, daily AM #Hypercholesterolemia - Hold atorvastatin Code status: Full code Disposition: Med-Tele FENGI: NPO wit exception of risperidone VTE prophylaxis: SCD's (to knee) Admission and Anticipated Discharge Date Admission Date: October 06, 2024 Supervising Physician Co-Signing Physician Notes I personally examined the patient and verified all gonzales points of history and exam, discussed case, and agree with decision making with Dr Sahu Abdominal pain continues to get better. upper airway congestion but no significant shortness of breath. vitals noted nad heent nc at mmm breathing unlabored No accessory muscle use good effort no conversational dyspnea and is on room air. Abdomen soft ongoing moderate distention really not any significant tendernessshe subjectively acknowledges some pain but there is no or objective findings fortunately to corroborateand guarding and rebound seem to be gone sepsis - peritonitis / perforated diverticulitis - on zosyn, slowly but surely doing better. Continue conservative care. Hopefully can start p.o. intake tomorrow (if not may need to consider IV nutrition if her n.p.o. status maintains prolonged). Anticipate follow-up CT scan at some point in the future, but no urgent indication. Mild pleural effusions almost certainly due to IV fluids needed for fluid resuscitation when she was more septicthese are currently on holdgiven that she has a little bit of fluid overload. Obviously no indication for diureticespecially given that she has no significant dyspnea/no intraparenchymal pulmonary edema and she is on room air. Blood culture notedalmost certainly contaminant. Appreciate surgery input. otherwise as above Subjective Renea is seen walking this morning and takes a seat prior to exam. Patient endorses increased SOB and wheeze and lower leg edema since yesterday evening. Patient has been using her incentive spirometer regularly, and feels that she has been improving on IV antibiotic therapy for her perforated diverticulitis. Today Renea denies chest pain, palpitations, abdominal pain, nausea, vomiting, dizziness, headache, fevers, and chills. Patient does endorse new increased SOB with little exertion, but denies productive cough or feeling ill. Physical Exam Physical Exam: General: patient resting comfortably, NAD, non-toxic in appearance, answers questions appropriately. Skin: warm, dry, intact HEENT: NC/AT, anicteric sclera, conjunctiva without injection, moist mucus membranes. Heart: +S1/S2, regular, no m/r/g Lungs: equal air entry bilaterally, no rales/rhonchi/wheezes Abd: +BS, soft, NT/ND Ext: warm, no clubbing/cyanosis, 1+ BL LE edema Neuro: nonfocal, speech intact, no facial droop, moving all extremities. Results & Data Results & Data Vital Signs (Past 12 Hours) Vital Signs Temp Pulse Pulse Resp BP Pulse Ox O2 Del Method 10/09/24 07:47 36.8 C 92 H 16 169/76 H 94 Room Air 10/09/24 07:21 84 10/09/24 04:15 37.0 C 82 17 124/63 93 Room Air 10/08/24 23:59 100 H 10/08/24 23:58 37.0 C 97 H 17 158/73 H 95 Room Air Resident Activity Tracking Resident Involvement: Resident Care Provided Care Provided: Adult Hospital Medicine (2) Vomiting Nausea presence: with nausea Vomiting type: unspecified Qualified Code(s): R11.2 - Nausea with vomiting, unspecified (4) Hyperlipidemia Hyperlipidemia type: unspecified Qualified Code(s): E78.5 - Hyperlipidemia, unspecified (6) Depression Depression Type: unspecified Qualified Code(s): F32.A - Depression, unspecified
--- NOTE | 2024-10-09 12:34 | Surgery Progress Note ---
Date of Service October 09, 2024 Assessment & Plan (1) Diverticulitis: Plan: Pt with contained perforation of sigmoid colon 2/2 diverticulitis with concern for possible fistula formation to gynecological organs and + pyosalpinx WBC downtrending to 12.6 (17). Vitals stable, pt afebrile. HRs 90-100s Patient feeling well from abdominal standpoint. She continues to improve + gas/loose BMs noted Would continue on IV abx, sips/chips for today, if continues to move in the right direction consider clears tomorrow Pt seen/examined with Dr. Leal Admission and Anticipated Discharge Date Admission Date: October 06, 2024 Subjective Patient reports feeling fairly well. Denies nausea. Reports + gas along with loose stools. Physical Exam Physical Exam: awake/alert, no distress Respiratory: normal respiratory effort Gastrointestinal (Abdomen): Percussion/Palpation: + abdomen tender (improving left sided and lower abdominal discomfort) and abdomen soft Results & Data Vital Signs (Past 12 Hours) Vital Signs Temp Pulse Pulse Resp BP Pulse Ox O2 Del Method 10/09/24 10:35 98.2 F 96 H 14 133/76 96 Room Air 10/09/24 07:47 98.2 F 92 H 16 169/76 H 94 Room Air 10/09/24 07:30 Room Air 10/09/24 07:21 84 10/09/24 04:15 98.6 F 82 17 124/63 93 Room Air PG Care Time/CCT Total # of Minutes Spent Total Time Spent with Patient: Total time spent is greater than 50% in coordination of care (as documented) at patient's floor/unit and/or counseling patient: Coding Level of Care Code 34687 SUB INP/OBS CARE 08/21MIN Diagnoses Diverticulitis K57.92
--- NOTE | 2024-10-09 16:30 | Billing Data ---
Date of Service October 09, 2024 Coding Level of Care Code 30979 SUB INP/OBS CARE 3MIN
[2024-10-09] MEDS: ACETAMINOPHEN 1,000 MG/100 ML VIAL IV PRN (21:35)
[2024-10-10 07:56] LABS: Basophils # (auto) 0.02 K/uL (0.00-0.20); Basophils % (auto) 0.2 %; Eosinophils # (auto) 0.18 K/uL (0.00-0.50); Eosinophils % (auto) 2.1 %; Hematocrit (blood only) 26.7 % (37.0-47.0); Hemoglobin 8.3 g/dl (12.0-16.0); Immature Granulocytes # (auto) 0.07 K/uL (0.01-0.20); Immature Granulocytes % (auto) 0.8 %; Lymphocytes # (auto) 0.66 K/uL (1.20-3.40); Lymphocytes % (auto) 7.5 %; Mean Corpuscular Hemoglobin 26.3 pg (25.0-34.0); Mean Corpuscular Hgb Conc 31.1 g/dL (32.0-36.0); Mean Corpuscular Volume 84.8 fL (80.0-100.0); Mean Platelet Volume 9.9 fL (9.4-12.4); Monocytes # (auto) 0.76 K/uL (0.11-0.59); Monocytes % (auto) 8.7 %; Neutrophils # (auto) 7.06 K/uL (1.40-6.50); Neutrophils % (auto) 80.7 %; Platelet Count 325 K/uL (130-400); RDW Coefficient of Variation 16.2 % (11.5-14.5); RDW Standard Deviation 50.4 fL (36.4-46.3); Red Blood Count 3.15 M/uL (4.20-5.40); White Blood Count 8.75 K/ul (4.8-10.8)
[2024-10-10 08:17] LABS: BUN Creatinine Ratio 18.2 (10-20); Calcium 7.9 mg/dl (8.6-10.3); Creatinine Clr Calc Pharmacy 56.6 ml/min; Potassium 3.1 mmol/L (3.5-5.1)
--- NOTE | 2024-10-10 10:01 | Hospitalist Progress Note ---
Date of Service October 10, 2024 Assessment & Plan (1) Intra-abdominal abscess: (2) Vomiting: (3) Diverticulitis: (4) Hyperlipidemia: (5) Thyroid disease: (6) Depression: Plan Patient is a 84 yo F w/ a PMHx of diverticulitis, Hx of BCC, osteoporosis, depression, hypothyroidism, anemia, Hx of breast cancer, presenting to ED on 10/05 w/ LLQ pain of about a week, accompanied by N/V and a fever of 102 F. WBC continues to increase and pt remains tachycardic, but reporting improvement in pain symptoms. Upper respiratory wheezing noted by pt with activity. No SOB or drop in O2 saturation #Perforated diverticulitis of sigmoid colon CT: There is diverticulosis throughout the sigmoid colon with mild wall thickening and slight surrounding inflammation suggesting diverticulitis and/or colitis. CT addendum: Upon further review, note is made of extensive sigmoid diverticulosis with sigmoid colon wall thickening. There is pericolonic stranding. There are several tubular enhancing gas and fluid containing foci within the pelvis. The findings suggest a contained perforation of the sigmoid colon from diverticulitis with possible fistula formation. A tubular focus within the left adnexa contains fluid and gas. When correlating with same-day pelvic ultrasound, this favors pyosalpinx secondary to diverticulitis with underlying fistula formation. Small amount of ascites within the abdomen with mesenteric stranding. This raises the possibility of peritonitis which could be correlated clinically - Gen surg consulted and following Continue with decision for conservative management - Stopped Unasyn on 10/07 in favor of Zosyn IV 4.5 gm q8h - WBC/neutrophil counts normalizing; vitals stable - Continue NPO for bowel rest with MIVF - Clears diet for breakfast - advance as tolerated #Left-side tubo-ovarian abscess - CT: There is a curvilinear fluid-filled tubular structure measuring 2 cm in diameter in the left side of the pelvis which appears contiguous with the uterus. Consider tubo-ovarian abscess. 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 Unchanged LLL infiltrate - Likely due to volume overload from 3-4 days of NPO and MIVF - Expect resolution over the next few days Chronic conditions #Depression/Insomnia - Allowed risperidone qhs with sip of water - Ativan PRN qhs #hypothyroidism - Hold levothyroxine, 88 mcg, PO, daily AM #Hypercholesterolemia - Hold atorvastatin Code status: Full code Disposition: Med-Tele FENGI: NPO wit exception of risperidone VTE prophylaxis: SCD's (to knee) Admission and Anticipated Discharge Date Admission Date: October 06, 2024 Supervising Physician Co-Signing Physician Notes I personally examined the patient and verified all gonzales points of history and exam, discussed case, and agree with decision making with Dr Sahu doing well overall. ate clear liquids and no pain/nausea after. vitals noted nad heent nc at mmm breathing unlabored No accessory muscle use good effort no conversational dyspnea and is on room air. Abdomen soft ongoing moderate distention (slightly more than yesterday but also just ate) really not any significant tenderness - guarding and rebound seem to be gone sepsis - peritonitis / perforated diverticulitis - on zosyn, slowly but surely doing better. Continue conservative care. tolerating clear liquids. Anticipate follow-up CT scan at some point in the future, but no urgent indication. Mild pleural effusions almost certainly due to IV fluids needed for fluid resuscitation when she was more septicthese are currently on holdgiven that she has a little bit of fluid overload. Obviously no indication for diureticespecially given that she has no significant dyspnea/no intraparenchy mal pulmonary edema and she is on room air. Blood culture notedalmost certainly contaminant. Appreciate surgery input. otherwise as above Subjective Renea is seen this AM resting comfortably on chair next to bedside. Patient reports improvements in her SOB from the day before, but does still notice some SOB when lying flat in bed. Patient endorses some left and right sided lower abdominal pain this AM that resolved with tylenol use. Patient will attempt a clears diet for breakfast and is apprehensive of oral intake but is ready to trial a oral diet. Physical Exam Physical Exam: General: patient resting comfortably, NAD, non-toxic in appearance, answers questions appropriately. Skin: warm, dry, intact HEENT: NC/AT, anicteric sclera, conjunctiva without injection, moist mucus membranes. Heart: +S1/S2, regular, no m/r/g Lungs: equal air entry bilaterally, no rales/rhonchi/wheezes Abd: +BS, soft, NT/ND Ext: warm, no clubbing/cyanosis, 1+ BL LE edema Neuro: nonfocal, speech intact, no facial droop, moving all extremities. Results & Data Results & Data Vital Signs (Past 12 Hours) Vital Signs Temp Pulse Pulse Resp BP Pulse Ox O2 Del Method 10/10/24 07:59 37.0 C 91 H 18 133/68 95 Room Air 10/10/24 07:47 90 10/10/24 07:21 Room Air 10/10/24 02:52 36.8 C 96 H 18 147/66 H 94 Room Air 10/10/24 00:20 36.7 C 90 16 133/67 95 Room Air Resident Activity Tracking Resident Involvement: Resident Care Provided Care Provided: Adult Hospital Medicine (2) Vomiting Nausea presence: with nausea Vomiting type: unspecified Qualified Code(s): R11.2 - Nausea with vomiting, unspecified (4) Hyperlipidemia Hyperlipidemia type: unspecified Qualified Code(s): E78.5 - Hyperlipidemia, unspecified (6) Depression Depression Type: unspecified Qualified Code(s): F32.A - Depression, unspec ified
--- NOTE | 2024-10-10 13:18 | Surgery Progress Note ---
Date of Service October 10, 2024 Assessment & Plan (1) Intra-abdominal abscess: Plan: contained perforation of sigmoid colon 2/2 diverticulitis with concern for possible fistula formation to gynecological organs and + pyosalpinx WBC wnl 8 VSS, afebrile. HRs 90-100s Started on clear liquids this AM , denies n/v , +BM abd distended, TTP Continue iv abx Pt seen/examined with Dr. Leal Admission and Anticipated Discharge Date Admission Date: October 06, 2024 Subjective pt reports tolerating clear liquids, denies n/v +BMs , abd discomfort present Review of Systems Respiratory: no dyspnea Gastrointestinal: + abdominal pain; no nausea and no vomit ing Musculoskeletal: no muscle weakness Psychiatric: no confusion Physical Exam Constitutional: cooperative and comfortable; no acute distress Respiratory: normal respiratory effort and able to speak in complete sentences; no respiratory distress Cardiovascular: Rate/Rhythm: + tachycardic (93) Gastrointestinal (Abdomen): Inspection/Auscultation: + abdomen distended Percussion/Palpation: + abdomen tender and abdomen soft Results & Data Vital Signs (Past 12 Hours) Vital Signs Temp Pulse Pulse Resp BP Pulse Ox O2 Del Method 10/10/24 11:29 98.1 F 93 H 20 129/78 95 Room Air 10/10/24 07:59 98.6 F 91 H 18 133/68 95 Room Air 10/10/24 07:47 90 10/10/24 07:21 Room Air 10/10/24 02:52 98.2 F 96 H 18 147/66 H 94 Room Air Results CBC w Diff Results: RBC 3.15 M/uL (4.20-5.40) L 10/10/24 WBC 8.75 K/ul (4.8-10.8) 10/10/24 Hgb 8.3 g/dl (12.0-16.0) L 10/10/24 Hct 26.7 % (37.0-47.0) L 10/10/24 MCV 84.8 fL (80.0-100.0) 10/10/24 MCH 26.3 pg (25.0-34.0) 10/10/24 MCHC 31.1 g/dL (32.0-36.0) L 10/10/24 RDW Standard Deviation 50.4 fL (36.4-46.3) H 10/10/24 RDW Coefficient of Variation 16.2 % (11.5-14.5) H 10/10/24 Plt Count 325 K/uL (130-400) 10/10/24 MPV 9.9 fL (9.4-12.4) 10/10/24 Neutrophils (%) (Auto) 80.7 % 10/10/24 Lymphocytes (%) (Auto) 7.5 % 10/10/24 Monocytes # (Auto) 0.76 K/uL (0.11-0.59) H 10/10/24 Eosinophils # (Auto) 0.18 K/uL (0.00-0.50) 10/10/24 Immature Granulocyte % (Auto) 0.8 % 10/10/24 Neutrophils # (Auto) 7.06 K/uL (1.40-6.50) H 10/10/24 Lymphocytes # (Auto) 0.66 K/uL (1.20-3.40) L 10/10/24 Monocytes # (Auto) 0.76 K/uL (0.11-0.59) H 10/10/24 Eosinophils # (Auto) 0.18 K/uL (0.00-0.50) 10/10/24 Basophils # (Auto) 0.02 K/uL (0.00-0.20) 10/10/24 Immature Granulocyte # (Auto) 0.07 K/uL (0.01-0.20) 5 PG Care Time/CCT Total # of Minutes Spent Total Time Spent with Patient: Total time spent is greater than 50% in coordination of care (as documented) at patient's floor/unit and/or counseling patient: Coding Level of Care Code 38519 SUB INP/OBS CARE 08/21MIN Diagnoses Intra-abdominal abscess K65.1
--- NOTE | 2024-10-10 17:58 | Billing Data ---
Date of Service October 10, 2024 Coding Level of Care Code 48374 SUB INP/OBS CARE MIN
--- NOTE | 2024-10-11 06:51 | Hospitalist Progress Note ---
Date of Service October 11, 2024 Assessment & Plan (1) Intra-abdominal abscess: (2) Vomiting: Plan: resolved (3) Diverticulitis: (4) Hyperlipidemia: (5) Thyroid disease: (6) Depression: Plan Patient is a 84 yo F w/ a PMHx of diverticulitis, Hx of BCC, osteoporosis, depression, hypothyroidism, anemia, Hx of breast cancer, presenting to ED on 10/05 w/ LLQ pain of about a week, accompanied by N/V and a fever of 102 F. WBC continues to increase and pt remains tachycardic, but reporting improvement in pain symptoms. Upper respiratory wheezing noted by pt with activity. No SOB or drop in O2 saturation #Perforated diverticulitis of sigmoid colon CT: extensive sigmoid diverticulosis with sigmoid colon wall thickening. There is pericolonic stranding. There are several tubular enhancing gas and fluid containing foci within the pelvis. The findings suggest a contained perforation of the sigmoid colon from diverticulitis with possible fistula formation. A tubular focus within the left adnexa contains fluid and gas. When correlating with same-day pelvic ultrasound, this favors pyosalpinx secondary to diverticulitis with underlying fistula formation. 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 Unchanged LLL infiltrate - Likely due to volume overload from 3-4 days NPO and MIVF - Expect resolution over the next few days Chronic conditions #Depression/Insomnia - Allowed risperidone qhs with sip of water - Ativan PRN qhs #hypothyroidism - Hold levothyroxine, 88 mcg, PO, daily AM #Hypercholesterolemia - Hold atorvastatin Code status: Full code Disposition: Med-Tele FENGI: tolerating regular VTE prophylaxis: SCD's (to knee) Admission and Anticipated Discharge Date Admission Date: October 06, 2024 Supervising Physician Co-Signing Physician Notes ATTESTATION I also saw the patient and confirmed gonzales portions of the history and exam. I agree with the impression and plan in the resident documentation, and as summarized below. Upon our late afternoon visit, the patient is seated in the bedside chair. She overall is feeling better. She is eating a diet with less abdominal pain - she still describes episodes of pain, but this is not always associated with eating. She notes that her abdomen looks and appears bloated to her. EXAM 144/67, 79, 16, 37 C, 98% on room air Alert and oriented. No distress appreciated heart regular rate and rhythm lungs clear positive bowel sounds appreciated throughout. Somewhat hyperactive. No tenderness to moderate palpation. No rebound or guarding. DATA Labs WBC 12.56, this is up slightly from yesterday at 8.75. Hemoglobin 9.2, this is improved compared to yesterday at 8.3 platelet count stable at 373 sodium 134, potassium 3.2 IMPRESSION & PLAN sepsis/ peritonitis/ perforated diverticulum clinically improving note slightly elevated white blood cell count; repeat in a.m. continue Zosyn appreciate surgical consultation Additional per resident documentation Darcie Meier was seen and evaluated at bedside this AM, appearing in no acute distress, in chair eating breakfast. Feeling well, denies any significant pain or discomfort at this time, but notes 10/10 abdominal pain during and before bowel movements, which have mostly been diarrhea recently. States one of her medications helps a lot with diarrhea which she receives at 10am. Tolerating full liquid diet as of yesterday, tolerated cereal and fruit this morning so diet is advancing. Denies fever, body aches, chills, sweats, SOB, dizziness, lightheadedness, nausea/vomiting. Physical Exam Physical Exam: General: A&Ox3, sitting comfortably, NAD, non-toxic in appearance, answers questions appropriately. Skin: warm, dry, intact HEENT: NC/AT, anicteric sclera, conjunctiva without injection, moist mucus membranes. Heart: +S1/S2, regular, no m/r/g Lungs: slightly less air movement heard on L>R, otherwise no rales/rhonchi/w heezes Abd: +BS, soft, mild tenderness to palpation of LLQ Ext: warm, no clubbing/cyanosis, 1+ b/l LE edema, calves nontender to palpation Neuro: nonfocal,speech intact, no facial droop, moving all extremities. Results & Data Results & Data Vital Signs (Past 12 Hours) Vital Signs Temp Pulse Pulse Resp BP Pulse Ox O2 Del Method 10/11/24 04:07 36.8 C 98 H 18 159/71 H 94 Room Air 10/10/24 23:45 36.8 C 95 H 16 127/65 94 Room Air 10/10/24 22:00 91 H 10/10/24 20:09 37.3 C 99 H 17 146/77 H 95 Room Air 10/10/24 20:00 Room Air Resident Activity Tracking Resident Involvement: Resident Care Provided Care Provided: Adult Hospital Medicine (2) Vomiting Nausea presence: with nausea Vomiting type: unspecified Qualified Code(s): R11.2 - Nausea with vomiting, unspecified (4) Hyperlipidemia Hyperlipidemia type: unspecified Qualified Code(s): E78.5 - Hyperlipidemia, unspecified (6) Depression Depression Type: unspecified Qualified Code(s): F32.A - Depression, unspecified
[2024-10-11 07:30] LABS: Basophils # (auto) 0.02 K/uL (0.00-0.20); Basophils % (auto) 0.2 %; Eosinophils # (auto) 0.19 K/uL (0.00-0.50); Eosinophils % (auto) 1.5 %; Hematocrit (blood only) 28.3 % (37.0-47.0); Hemoglobin 9.2 g/dl (12.0-16.0); Immature Granulocytes # (auto) 0.14 K/uL (0.01-0.20); Immature Granulocytes % (auto) 1.1 %; Lymphocytes # (auto) 0.87 K/uL (1.20-3.40); Lymphocytes % (auto) 6.9 %; Mean Corpuscular Hemoglobin 26.8 pg (25.0-34.0); Mean Corpuscular Hgb Conc 32.5 g/dL (32.0-36.0); Mean Corpuscular Volume 82.5 fL (80.0-100.0); Mean Platelet Volume 9.8 fL (9.4-12.4); Monocytes # (auto) 0.87 K/uL (0.11-0.59); Monocytes % (auto) 6.9 %; Neutrophils # (auto) 10.47 K/uL (1.40-6.50); Neutrophils % (auto) 83.4 %; Platelet Count 373 K/uL (130-400); RDW Standard Deviation 48.4 fL (36.4-46.3); Red Blood Count 3.43 M/uL (4.20-5.40); White Blood Count 12.56 K/ul (4.8-10.8)
[2024-10-11 08:18] LABS: Calcium 8.1 mg/dl (8.6-10.3); Creatinine Clr Calc Pharmacy 51.2 ml/min
[2024-10-11] MEDS: POTASSIUM CHLORIDE CRTAB 20 MEQ TABCR PO STA ×3 (10:20→16:55)
[2024-10-11 13:53] LABS: Calcium 7.8 mg/dl (8.6-10.3); Potassium 3.2 mmol/L (3.5-5.1)
[2024-10-11 13:59] LABS: BUN Creatinine Ratio 10.1 (10-20); Creatinine Clr Calc Pharmacy 47.3 ml/min
--- NOTE | 2024-10-11 14:50 | Surgery Progress Note ---
Date of Service October 11, 2024 Assessment & Plan (1) Intra-abdominal abscess: (2) Diverticulitis large intestine w/o perforation or abscess w/bleeding: Plan: mild leukocytosis of 12k today (8K yesterday) abdominal pain improving tolerating advanced diet + bowel function Plan: continue soft diet continue IV zosyn would repeat am labs to ensure wbc is not elevating Needs repeat ct scan in 1-2 weeks given abscess and possible fistula (may need to consider earlier repeat ct scan if wbc continues to elevate although patient clinically improving) continue medical management Discussed with Dr. pinedo who agrees with above. Admission and Anticipated Discharge Date Admission Date: October 06, 2024 Subjective feeling good, had soft diet for lunch and then formed bowel movement . Has had diarrhea for 5 days tolerating food intake with no nausea, vomiting, or increase in abdominal pain feeling slightly bloated urinating without difficulty no fevers, chills, sweats Physical Exam Constitutional: WD/WN, vitals as above cooperative and comfortable; no acute distress and not ill appearing Respiratory: normal respiratory effort; no respiratory distress Gastrointestinal (Abdomen): Inspection/Auscultation: abdomen normal to inspection and + abdomen distended (mild) Percussion/Palpation: + abdomen tender (RLQ) and abdomen soft; no guarding, abdomen not rigid and abdomen not firm Skin: no rashes, warm and dry Psychiatric: Orientation: alert and oriented x 3 Results & Data Vital Signs (Past 12 Hours) Vital Signs Temp Pulse Pulse Resp BP Pulse Ox O2 Del Method 10/11/24 14:04 79 10/11/24 10:36 36.8 C 94 H 20 150/80 H 97 Room Air 10/11/24 09:04 Room Air 10/11/24 07:23 86 10/11/24 07:21 36.5 C 86 18 147/66 H 95 Room Air 10/11/24 04:07 36.8 C 98 H 18 159/71 H 94 Room Air Laboratory Results 10/11/24 10/11/24 Range/Units 13:01 06:45 WBC 12.56 H (4.8-10.8) K/ul RBC 3.43 L (4.20-5.40) M/uL Hgb 9.2 L (12.0-16.0) g/dl Hct 28.3 L (37.0-47.0) % MCV 82.5 (80.0-100.0) fL MCH 26.8 (25.0-34.0) pg MCHC 32.5 (32.0-36.0) g/dL RDW Std Deviation 48.4 H (36.4-46.3) fL RDW Coeff of Dinesh 16.0 H (11.5-14.5) % Plt Count 373 (130-400) K/uL MPV 9.8 (9.4-12.4) fL Immature Gran % (Auto) 1.1 % Neut % (Auto) 83.4 % Lymph % (Auto) 6.9 % [place] % (Auto) 6.9 % Eos % (Auto) 1.5 % Baso % (Auto) 0.2 % Neut # (Auto) 10.47 H (1.40-6.50) K/uL Lymph # (Auto) 0.87 L (1.20-3.40) K/uL [place] # (Auto) 0.87 H (0.11-0.59) K/uL Eos # (Auto) 0.19 (0.00-0.50) K/uL Baso # (Auto) 0.02 (0.00-0.20) K/uL Immature Gran # (Auto) 0.14 (0.01-0.20) K/uL Sodium 134 L 138 (136-145) mmol/L Potassium 3.2 L 3.0 L (3.5-5.1) mmol/L Chloride 106 107 (98-107) mmol/L Carbon Dioxide 24 24 (21-32) mmol/L Anion Gap 4 7 (3-11) BUN 8 8 (6-23) mg/dl Creatinine 0.79 0.73 (0.6-1.2) mg/dl Est Cr Clr Drug Dosing 47.3 51.2 ml/min eGFR 73.26 80.54 BUN/Creatinine Ratio 10.1 11.0 (10-20) Glucose 136 H 115 H (70-99(Fasting)) mg/dl Calcium 7.8 L 8.1 L (8.6-10.3) mg/dl
[2024-10-12 06:33] LABS: Hematocrit (blood only) 28.3 % (37.0-47.0); Hemoglobin 9.1 g/dl (12.0-16.0); Mean Corpuscular Hemoglobin 26.5 pg (25.0-34.0); Mean Corpuscular Hgb Conc 32.2 g/dL (32.0-36.0); Mean Corpuscular Volume 82.5 fL (80.0-100.0); Mean Platelet Volume 9.8 fL (9.4-12.4); Platelet Count 397 K/uL (130-400); RDW Standard Deviation 49.2 fL (36.4-46.3); Red Blood Count 3.43 M/uL (4.20-5.40)
[2024-10-12 06:57] LABS: Calcium 8.1 mg/dl (8.6-10.3); Potassium 3.5 mmol/L (3.5-5.1)
[2024-10-12 07:03] LABS: BUN Creatinine Ratio 8.7 (10-20); Creatinine Clr Calc Pharmacy 54.1 ml/min
--- NOTE | 2024-10-12 07:08 | Hospitalist Progress Note ---
Date of Service October 12, 2024 Assessment & Plan (1) Intra-abdominal abscess: (2) Vomiting: Plan: resolved (3) Diverticulitis: (4) Hyperlipidemia: (5) Thyroid disease: (6) Depression: Plan Patient is a 84 yo F w/ a PMHx of diverticulitis, Hx of BCC, osteoporosis, depression, hypothyroidism, anemia, Hx of breast cancer, presenting to ED on 10/05 w/ LLQ pain of about a week, accompanied by N/V and a fever of 102 F. WBC continues to increase and pt remains tachycardic, but reporting improvement in pain symptoms. Upper respiratory wheezing noted by pt with activity. No SOB or drop in O2 saturation #Perforated diverticulitis of sigmoid colon CT: extensive sigmoid diverticulosis with sigmoid colon wall thickening. There is pericolonic stranding. There are several tubular enhancing gas and fluid containing foci within the pelvis. The findings suggest a contained perforation of the sigmoid colon from diverticulitis with possible fistula formation. A tubular focus within the left adnexa contains fluid and gas. When correlating with same-day pelvic ultrasound, this favors pyosalpinx secondary to diverticulitis with underlying fistula formation. 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 Unchanged LLL infiltrate - Likely due to volume overload from 3-4 days NPO and MIVF - Expect resolution over the next few days Chronic conditions #Depression/Insomnia - Allowed risperidone qhs with sip of water - Ativan PRN qhs #hypothyroidism - Hold levothyroxine, 88 mcg, PO, daily AM #Hypercholesterolemia - Hold atorvastatin Code status: Full code Disposition: Med-Tele JILLI: tolerating regular VTE prophylaxis: SCD's (to knee) Admission and Anticipated Discharge Date Admission Date: October 06, 2024 Supervising Physician Co-Signing Physician Notes ATTESTATION I also saw the patient and confirmed gonzales portions of the history and exam. I agree with the impression and plan in the resident documentation, and as summarized below. I also discussed with case with general surgery. Upon exam this morning, patient semi-reclined in bed. She ate some breakfast without nausea. Pain is about the same - intermittent. She actually says today is better than yesterday thus far. EXAM VS reviewed. Slightly tachycardic this morning. Alert and oriented. No distress appreciated heart regular tachycardia with normal rhythm (sinus tach on monitor) Non labored respirations Tenderness to palpation RLQ and to lesser extent LLQ DATA Labs WBC up to 15.5 BMP unremarkable IMPRESSION & PLAN sepsis/ peritonitis/ perforated diverticulum Mixed picture clinically - eating, feels better but increasing leukocytosis and TTP RLQ Will re-image today; if defined abscess, may be amendable to IR Case discussed with resident and surgery at bedside with patient. Further care after review of imaging later today Additional per resident documentation Subjective Renea was seen and evaluated at bedside this AM, feeling "okay". Denies significant abdominal pain this morning and notes diarrhea has improved and has been more solid in consistency. Has eaten about 50% of her breakfast mainly due to not being very hungry, denies any nausea/vomiting. Endorses she has been up out of bed 4 times today, no concerns about dizziness, lightheadedness, or falling. Denies fever, body aches, chills, sweats, SOB, chest pain, LE pain. Physical Exam Physical Exam: General: A&Ox3, sitting comfortably, NAD, non-toxic in appearance, answers questions appropriately. Skin: warm, dry, intact HEENT: NC/AT, anicteric sclera, conjunctiva without injection, moist mucus membranes. Heart: RRR, +s1/s2, no m/r/g Lungs: clear to auscultation b/l, slightly decreased breath sounds on L base compared to R, no rales/rhonchi/wheezes Abd: +BS, soft, mild tenderness to palpation of LLQ>RUQ Ext: warm, no clubbing/cyanosis, 2+ b/l LE pitting edema up to knees, calves nontender to palpation Neuro:speech intact, no facial droop, moving all extremities Results & Data Results & Data Vital Signs (Past 12 Hours) Vital Signs Temp Pulse Pulse Resp BP Pulse Ox O2 Del Method 10/12/24 03:00 36.8 C 90 18 124/64 95 Room Air 10/11/24 23:06 37.3 C 88 18 123/61 95 Room Air 10/11/24 22:19 95 H 10/11/24 20:00 37.2 C 94 H 18 146/81 H 95 Room Air 10/11/24 19:29 Room Air Resident Activity Tracking Resident Involvement: Resident Care Provided Care Provided: Adult Hospital Medicine (2) Vomiting Nausea presence: with nausea Vomiting type: unspecified Qualified Code(s): R11.2 - Nausea with vomiting, unspecified (4) Hyperlipidemia Hyperlipidemia type: unspecified Qualified Code(s): E78.5 - Hyperlipidemia, unspecified (6) Depression Depression Type: unspecified Qualified Code(s): F32.A - Depression, unspecified
--- NOTE | 2024-10-12 09:05 | Surgery Progress Note ---
Date of Service October 12, 2024 Assessment & Plan (1) Intra-abdominal abscess: (2) Diverticulitis large intestine w/o perforation or abscess w/bleeding: Plan: mild leukocytosis of 12k today (8K yesterday) abdominal pain improving tolerating advanced diet + bowel function Plan: continue soft diet continue IV zosyn would repeat am labs to ensure wbc is not elevating Needs repeat ct scan in 1-2 weeks given abscess and possible fistula (may need to consider earlier repeat ct scan if wbc continues to elevate although patient clinically improving) continue medical management 10/12/2024white count increased to 15 today. Still with significant tenderness in lower abdomen. We will repeat her CT scan to assess for abscess formation. Admission and Anticipated Discharge Date Admission Date: October 06, 2024 Subjective states she is feeling better today. Less pain. No nausea or vomiting. Tolerating diet. Physical Exam Constitutional: WD/WN, vitals as above cooperative and comfortable; no acute distress and not ill appearing Gastrointestinal (Abdomen): Inspection/Auscultation: abdomen normal to inspection and + abdomen distended (mild) Percussion/Palpation: + abdomen tender (RLQ) and abdomen soft; no guarding, abdomen not rigid and abdomen not firm Skin: no rashes, warm and dry Psychiatric: Orientation: alert and oriented x 3 Results & Data Vital Signs (Past 12 Hours) Vital Signs Temp Pulse Pulse Resp BP Pulse Ox O2 Del Method 10/12/24 08:00 37.3 C 94 H 18 147/74 H 96 Room Air 10/12/24 03:00 36.8 C 90 18 124/64 95 Room Air 10/11/24 23:06 37.3 C 88 18 123/61 95 Room Air 10/11/24 22:19 95 H Laboratory Results 10/12/24 10/11/24 Range/Units 05:53 13:01 WBC 15.50 H (4.8-10.8) K/ul RBC 3.43 L (4.20-5.40) M/uL Hgb 9.1 L (12.0-16.0) g/dl Hct 28.3 L (37.0-47.0) % MCV 82.5 (80.0-100.0) fL MCH 26.5 (25.0-34.0) pg MCHC 32.2 (32.0-36.0) g/dL RDW Std Deviation 49.2 H (36.4-46.3) fL RDW Coeff of Dinesh 16.0 H (11.5-14.5) % Plt Count 397 (130-400) K/uL MPV 9.8 (9.4-12.4) fL Sodium 137 134 L (136-145) mmol/L Potassium 3.5 3.2 L (3.5-5.1) mmol/L Chloride 107 106 (98-107) mmol/L Carbon Dioxide 23 24 (21-32) mmol/L Anion Gap 7 4 (3-11) BUN 6 8 (6-23) mg/dl Creatinine 0.69 0.79 (0.6-1.2) mg/dl Est Cr Clr Drug Dosing 54.1 47.3 ml/min eGFR 84.99 73.26 BUN/Creatinine Ratio 8.7 L 10.1 (10-20) Glucose 124 H 136 H (70-99(Fasting)) mg/dl Calcium 8.1 L 7.8 L (8.6-10.3) mg/dl
[2024-10-12] MEDS: OPTIRAY 320 100ml IV ONE (11:51)
--- NOTE | 2024-10-12 12:33 | CT Scan Report ---
ABDOMEN AND PELVIS CT WITH IV AND ORAL CONTRAST CT DOSE: 994.67 mGy.cm HISTORY: follow up perf, exlude abcess TECHNIQUE: Multiaxial CT images of the abdomen and pelvis were performed following the IV administrat ion of 90 cc of Optiray and oral contrast. A dose lowering technique was utilized adhering to the pr inciples of ISABELLA. COMPARISON STUDY: 10/05/2024 FINDINGS: There are interval small bilateral pleural effusions with mild adjacent compressive atelect asis of the lower lung lobes. Stable moderate hiatal hernia. ABDOMEN: Stable tiny liver cyst. Otherwise the liver, gallbladder, spleen, pancreas, and adrenal glan ds are unremarkable. There are mild atherosclerotic calcifications. No abdominal aortic aneurysm. The re is interval mild hydronephrosis at the right kidney. No hydronephrosis on the left. No renal or ur eteral calculi seen. Pelvis: Urinary bladder is nondistended. There is extensive sigmoid diverticulosis. There is stable w all thickening and inflammation at the sigmoid colon consistent with diverticulitis. There is a stabl e curved tubular fluid collection with enhancing wall measuring 6 cm greatest axial dimension, stable . This is consistent with pyosalpinx likely secondary to the diverticulitis. In the mid to anterior p akiko at the midline extending to the right of midline there is an 8 cm fluid collection with enhanci ng wall consistent with abscess. The abscess is mostly surrounded by small bowel loops. There are a f ew other smaller similar findings interspersed in the lower small bowel mesentery. There is diffuse s mall bowel wall thickening in the pelvis with adjacent inflammation consistent with enteritis, increa sed. There is also reactive inflammation of the cecum. No free air seen. No bowel obstruction. There is progressive heterogeneous appearance of the uterus, possible uterine infection. Osseous structures: There is severe diffuse lumbar degenerative disc disease. IMPRESSION: 1. Progressive infectious/inflammatory findings in the pelvis. Findings are consistent with sigmoid d iverticulitis causing left pyosalpinx and right pelvic abscess and multiple small abscesses in the sm all bowel mesentery. There is also progressive heterogeneous appearance of the uterus, possible uteri ne infection. 2. There is reactive enteritis/proximal colitis in the pelvis without bowel obstruction. 3. The right pelvic inflammation and abscess is causing mild right hydronephrosis due to mass effect on the distal right ureter. 4. Interval small bilateral pleural effusions. 5. Otherwise as described. ACT 112: Negative or not required by law. The above report was generated using voice recognition software. It may contain grammatical, syntax o r spelling errors. Electronically signed by: Jose Alejandro Dye M.D. 10/12/2024 12:30 PM
[2024-10-12] MEDS: ACETAMINOPHEN 325 MG TAB PO PRN (15:58)
[2024-10-13] MEDS: PIPERACILLIN/TAZOBACTAM 4.5 GM/100 ML BAG IV SCH (03:47)
[2024-10-13 06:24] LABS: Hematocrit (blood only) 27.4 % (37.0-47.0); Hemoglobin 8.7 g/dl (12.0-16.0); Mean Corpuscular Hemoglobin 26.1 pg (25.0-34.0); Mean Corpuscular Hgb Conc 31.8 g/dL (32.0-36.0); Mean Corpuscular Volume 82.3 fL (80.0-100.0); Mean Platelet Volume 9.4 fL (9.4-12.4); Platelet Count 397 K/uL (130-400); RDW Standard Deviation 48.7 fL (36.4-46.3); Red Blood Count 3.33 M/uL (4.20-5.40); White Blood Count 13.67 K/ul (4.8-10.8)
[2024-10-13 06:41] LABS: BUN Creatinine Ratio 6.3 (10-20); Calcium 8.1 mg/dl (8.6-10.3); Creatinine Clr Calc Pharmacy 59.3 ml/min; Potassium 3.5 mmol/L (3.5-5.1)
--- NOTE | 2024-10-13 06:57 | Hospitalist Progress Note ---
Date of Service October 13, 2024 Assessment & Plan (1) Intra-abdominal abscess: (2) Left pyosalpinx: (3) Vomiting: (4) Diverticulitis: (5) Hyperlipidemia: (6) Thyroid disease: (7) Depression: Plan Patient is a 84 yo F w/ a PMHx of diverticulitis, Hx of BCC, osteoporosis, dep ression, hypothyroidism, anemia, Hx of breast cancer, presenting to ED on 10/05 w/ LLQ pain of about a week, accompanied by N/V and a fever of 102 F. WBC continues to increase and pt remains tachycardic, but reporting improvement in pain symptoms. #Intra-abdominal Abscess CT 10/12/24: mid-anterior pelvis at midline extending to the right of midline there is an 8 cm fluid collection with enhancing wall consistent with abscess. The abscess is mostly surrounded by small bowel loops. There are a few other smaller similar findings interspersed in the lower small bowel mesentery. There is diffuse small bowel wall thickening in the pelvis with adjacent inflammation consistent with enteritis, increased. There is also reactive inflammation of the cecum. No free air seen. No bowel obstruction. There is progressive heterogeneous appearance of the uterus, possible uterine infection. 10/13/24 IR procedure: Donaldo Kimble CT-guided abscess drainage of 8cm abscess pending fluid analysis + culture - Continue Zosyn IV 4.5g q8h, abx course 10-14 days total for now CBC AM #Left-side tubo-ovarian abscess vs hydrosalpinx CT 10/12/24- stable curved tubular fluid collection with enhancing wall measuring 6 cm greatest axial dimension, stable. This is consistent with pyosalpinx likely secondary to the diverticulitis. 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 There is stable wall thickening and inflammation at the sigmoid colon consistent with diverticulitis. There is also reactive inflammation of the cecum. No free air seen. No bowel obstruction. - Gen surg and IR consulted and following CBC AM #Sepsis - Pt is afebrile and BP has been normal to mildly elevated - Most likely cause of this is the perforation of the diverticulitis as source of infection CBC AM BL LE edema/SOB/Wheeze - CXR: Moderate Left and small right pleural effusions, cardiomegaly with mild vascular congestion. Unchanged LLL infiltrate - Likely due to volume overload from 3-4 days NPO and MIVF - Expect resolution over the next few days Chronic conditions #Depression/Insomnia - Allowed risperidone qhs with sip of water - Ativan PRN qhs #hypothyroidism - Hold levothyroxine, 88 mcg, PO, daily AM #Hypercholesterolemia - Hold atorvastatin Code status: Full code Disposition: Med-Tele FENGI: tolerating regular VTE prophylaxis: SCD's (to knee) Admission and Anticipated Discharge Date Admission Date: October 06, 2024 Supervising Physician Co-Signing Physician Notes ATTESTATION I also saw the patient and confirmed gonzales portions of the history and exam. I agree with the impression and plan in the resident documentation, and as summarized below. I also discussed with case with general surgery and Interventional Radiology. EXAM VS reviewed. Alert and oriented. No distress appreciated heart regular tachycardia with normal rhythm (sinus tach on monitor) Non labored respirations Tenderness to palpation RLQ and to lesser extent LLQ, similar to yesterday DATA Labs WBC up to 13.67 HgB 8.7 BMP unremarkable Micro Gram stain and culture from IR drainage today pending IMPRESSION & PLAN sepsis/ peritonitis/ perforated diverticulum Successful IR drainage today Cultures pending Will continue current antibiotics; adjust based on new cultures Will follow clinically; will likely need to be re-imaged in 2 or 3 days, but this will depend on clinical course Patient with noted history of longstanding hydrosalpinx, best articulated in 10/06/24 gynecology note Will re-look at this area on follow up imaging - this will help differentiate acute from chronic changes Additional per resident documentation Subjective Renea was seen and evaluated at bedside this AM, feeling okay. Endorses 4 soft bowel movements overnight with 7/10 abdominal pain during them, denies any blood in stool and says stools are definitely more solid than prior. Has been NPO from midnight in anticipation of IR procedure this AM: CT-guided abscess drainage. Denies feeling very hungry, but a bit anxious about the procedure. Discussed in depth about the IR procedure as the plan is to drain the 8cm abscess to the R of midline, not the L fallopian tube but ensured her that OBGYN will be notified about concern of pyosalpinx. Denies fever, body aches, chills, sweats, SOB, chest pain, LE pain Physical Exam Physical Exam: General: A&Ox3, sitting comfortably, NAD, non-toxic in appearance, answers questions appropriately. Skin: warm, dry, intact HEENT: NC/AT, anicteric sclera, conjunctiva without injection, moist mucus membranes. Heart: RRR, +s1/s2, no m/r/g Lungs: clear to auscultation b/l, slightly decreased breath sounds on L base compared to R, no rales/rhonchi/wheezes Abd: +BS, soft, tenderness to palpation of RLQ, LLQ, and RUQ; some guarding during palpation Ext: warm, no clubbing/cyanosis, 2+ b/l LE pitting edema up to knees, calves nontender to palpation Neuro:speech intact, no facial droop, moving all extremities Results & Data Results & Data Vital Signs (Past 12 Hours) Vital Signs Temp Pulse Pulse Resp BP Pulse Ox O2 Del Method 10/13/24 02:07 36.6 C 82 18 147/71 H 94 Room Air 10/12/24 23:00 36.8 C 93 H 16 151/76 H 96 Room Air 10/12/24 22:00 107 H 10/12/24 19:30 Room Air 10/12/24 19:00 37.1 C 100 H 20 166/85 H 95 Room Air Resident Activity Tracking Resident Involvement: Resident Care Provided Care Provided: Adult Hospital Medicine (3) Vomiting Nausea presence: with nausea Vomiting type: unspecified Qualified Code(s): R11.2 - Nausea with vomiting, unspecified (5) Hyperlipidemia Hyperlipidemia type: unspecified Qualified Code(s): E78.5 - Hyperlipidemia, unspecified (7) Depression Depression Type: unspecified Qualified Code(s): F32.A - Depression, unspecified
[2024-10-13] MEDS ORDERED: LORazepam 2 MG/1 ML VIAL IV PRN (09:18)
--- NOTE | 2024-10-13 09:28 | Surgery Progress Note ---
Date of Service October 13, 2024 Assessment & Plan (1) Intra-abdominal abscess: (2) Diverticulitis large intestine w/o perforation or abscess w/bleeding: Plan: Repeat ct scan with developed larger pelvic abscess measuring up to 8 cm along with left pyosalpinx abscess measuring 6 cm. Leukocytosis mildly improved today at 13K (15K previously) afebrile moderate pain in lower abdomen on examination Plan: NPO for IR drainage of pelvic abscess today recommend TRAVEL OT consult for left pyosalpinx abscess as discussed with Geronimo Kimble PA-C with IR the drainage procedure today will not address this abscess. continue IV zosyn continue medical management Discussed with Dr. Patel who agrees with above Admission and Anticipated Discharge Date Admission Date: October 06, 2024 Subjective feeling okay today not having any pain, mostly pain in the lower abdomen before and after bowel movements had some pain last evening no n,v no fevers or chills urinating without difficulty Physical Exam Constitutional: WD/WN, vitals as above cooperative and comfortable; no acute distress and not ill appearing Respiratory: normal respiratory effort; no respiratory distress and no labored breathing Gastrointestinal (Abdomen): Inspection/Auscultation: + abdomen distended (mild) Percussion/Palpation: + abdomen tender (throughout the lower abdomen), + guarding (voluntary of the lower abdomen) and abdomen soft; abdomen not rigid and abdomen not firm Skin: no rashes, warm and dry Psychiatric: A+Ox3, euthymic affect Results & Data Vital Signs (Past 12 Hours) Vital Signs Temp Pulse Pulse Resp BP Pulse Ox O2 Del Method 10/13/24 07:59 37.2 C 90 18 165/82 H 95 Room Air 10/13/24 07:00 92 H 10/13/24 02:07 36.6 C 82 18 147/71 H 94 Room Air 10/12/24 23:00 36.8 C 93 H 16 151/76 H 96 Room Air 10/12/24 22:00 107 H Laboratory Results 10/13/24 Range/Units 05:50 WBC 13.67 H (4.8-10.8) K/ul RBC 3.33 L (4.20-5.40) M/uL Hgb 8.7 L (12.0-16.0) g/dl Hct 27.4 L (37.0-47.0) % MCV 82.3 (80.0-100.0) fL MCH 26.1 (25.0-34.0) pg MCHC 31.8 L (32.0-36.0) g/dL RDW Std Deviation 48.7 H (36.4-46.3) fL RDW Coeff of Dinesh 16.0 H (11.5-14.5) % Plt Count 397 (130-400) K/uL MPV 9.4 (9.4-12.4) fL Sodium 137 (136-145) mmol/L Potassium 3.5 (3.5-5.1) mmol/L Chloride 106 (98-107) mmol/L Carbon Dioxide 25 (21-32) mmol/L Anion Gap 6 (3-11) BUN 4 L (6-23) mg/dl Creatinine 0.63 (0.6-1.2) mg/dl Est Cr Clr Drug Dosing 59.3 ml/min eGFR 86.88 BUN/Creatinine Ratio 6.3 L (10-20) Glucose 103 H (70-99(Fasting)) mg/dl Calcium 8.1 L (8.6-10.3) mg/dl Diagnostic Findings ABDOMEN AND PELVIS CT WITH IV AND ORAL CONTRAST CT DOSE: 994.67 mGy.cm HISTORY: follow up perf, exlude abcess TECHNIQUE: Multiaxial CT images of the abdomen and pelvis were performed following the IV administration of 90 cc of Optiray and oral contrast. A dose lowering technique was utilized adhering to the principles of ALARA. COMPARISON STUDY: 10/05/2024 FINDINGS: There are interval small bilateral pleural effusions with mild adjacent compressive atelectasis of the lower lung lobes. Stable moderate hiatal hernia. ABDOMEN: Stable tiny liver cyst. Otherwise the liver, gallbladder, spleen, pancreas, and adrenal glands are unremarkable. There are mild atherosclerotic calcifications. No abdominal aortic aneurysm. There is interval mild hydronephrosis at the right kidney. No hydronephrosis on the left. No renal or ureteral calculi seen. Pelvis: Urinary bladder is nondistended. There is extensive sigmoid diverticulosis. There is stable wall thickening and inflammation at the sigmoid colon consistent with diverticulitis. There is a stable curved tubular fluid collection with enhancing wall measuring 6 cm greatest axial dimension, stable. This is consistent with pyosalpinx likely secondary to the diverticulitis. In the mid to anterior pelvis at the midline extending to the right of midline there is an 8 cm fluid collection with enhancing wall consistent with abscess. The abscess is mostly surrounded by small bowel loops. There are a few other smaller similar findings interspersed in the lower small bowel mesentery. There is diffuse small bowel wall thickening in the pelvis with adjacent inflammation consistent with enteritis, increased. There is also reactive inflammation of the cecum. No free air seen. No bowel obstruction. There is progressive heterogeneous appearance of the uterus, possible uterine infection. Osseous structures: There is severe diffuse lumbar degenerative disc disease. IMPRESSION: 1. Progressive infectious/inflammatory findings in the pelvis. Findings are consistent with sigmoid diverticulitis causing left pyosalpinx and right pelvic abscess and multiple small abscesses in the small bowel mesentery. There is also progressive heterogeneous appearance of the uterus, possible uterine infection. 2. There is reactive enteritis/proximal colitis in the pelvis without bowel obstruction. 3. The right pelvic inflammation and abscess is causing mild right hydronephrosis due to mass effect on the distal right ureter. 4. Interval small bilateral pleural effusions. 5. Otherwise as described. I PERSONALLY REVIEWED CT SCAN IMAGES ABOVE AND CONCUR WITH ABOVE FINDINGS
[2024-10-13] MEDS: fentaNYL citrate PF 100 MCG/2 ML VIAL ONE (12:47)
--- NOTE | 2024-10-13 14:47 | CT Scan Report ---
CT guided right lower quadrant abscess drain placement INDICATION: Diverticulitis with abscess collection PROCEDURE: Procedure and risks were explained. Informed consent was obtained. A final timeout was com pleted. The patient was placed supine on the CT exam table. The right lower quadrant was prepped and draped in sterile fashion. 1% lidocaine was utilized for skin anesthesia. Utilizing CT guidance, an 18-gauge Chiba needle was advanced into the right lower quadrant fluid casandra ection. A 0.035 Amplatz wire was introduced and exchanged for a 10 [place] locking pigtail catheter. A pproximately 20 mL of cloudy yellow fluid was aspirated and sent to lab for analysis. The catheter wa s then sutured to the skin with 2-0 Prolene and placed to suction bag drainage. Post-CT imaging demon strated adequate catheter position without immediate complication. The patient tolerated the procedur e well. Vital signs will be monitored postprocedure. IMPRESSION: Right lower quadrant abscess drain placement as above. Performed, dictated, and signed by Donaldo Kimble PA-C; to be co-signed by Dr. Jose Alejandro Dye. Electronically signed by: Jose Alejandro Dye M.D. 10/13/2024 3:32 PM
--- NOTE | 2024-10-13 17:40 | Gynecologic Progress Note ---
Date of Service October 13, 2024 Assessment & Plan Admission and Anticipated Discharge Date Admission Date: October 06, 2024 Darcie Soliman is a 84-year-old admitted for diverticular abscess and hydrosalpinx with diverticulitis causing possible pyosalpinx. Was asked to reevaluate chart and patient due to new findings. Patient has been admitted with broad-spectrum antibiotics Results & Data Vital Signs (Past 12 Hours) Vital Signs Temp Pulse Pulse Resp BP Pulse Ox O2 Del Method 10/13/24 17:30 88 10/13/24 15:31 100 H 10/13/24 15:17 37.2 C 89 18 153/79 H 95 Room Air 10/13/24 14:01 88 10/13/24 13:46 91 H 10/13/24 13:31 106 H 10/13/24 13:16 36.6 C 108 H 12 131/71 97 Room Air 10/13/24 10:41 37.1 C 93 H 18 153/89 H 95 Room Air 10/13/24 07:59 37.2 C 90 18 165/82 H 95 Room Air 10/13/24 07:00 92 H PG Care Time/CCT Total # of Minutes Spent Total Time Spent with Patient: Total time spent is greater than 50% in coordination of care (as documented) at patient's floor/unit and/or counseling patient: Coding
[2024-10-14 06:13] LABS: Hemoglobin 8.4 g/dl (12.0-16.0); Mean Corpuscular Hemoglobin 26.6 pg (25.0-34.0); Mean Corpuscular Hgb Conc 32.3 g/dL (32.0-36.0); Mean Corpuscular Volume 82.3 fL (80.0-100.0); Mean Platelet Volume 9.2 fL (9.4-12.4); Platelet Count 385 K/uL (130-400); RDW Standard Deviation 48.2 fL (36.4-46.3); Red Blood Count 3.16 M/uL (4.20-5.40); White Blood Count 9.35 K/ul (4.8-10.8)
--- NOTE | 2024-10-14 07:27 | Hospitalist Progress Note ---
Date of Service October 14, 2024 Assessment & Plan (1) Intra-abdominal abscess: (2) Left pyosalpinx: (3) Vomiting: (4) Diverticulitis: (5) Hyperlipidemia: (6) Thyroid disease: (7) Depression: Plan Patient is a 84 yo F w/ a PMHx of diverticulitis, Hx of BCC, osteoporosis, dep ression, hypothyroidism, anemia, Hx of breast cancer, presenting to ED on 10/05 w/ LLQ pain of about a week, accompanied by N/V and a fever of 102 F. WBC continues to increase and pt remains tachycardic, but reporting improvement in pain symptoms. Now s/p 8cm abscess drainage post-procedure day 1, having minimal pain and WBCs normalizing. #Intra-abdominal Abscess CT 10/12/24: mid-anterior pelvis at midline extending to the right of midline there is an 8 cm fluid collection with enhancing wall consistent with abscess. The abscess is mostly surrounded by small bowel loops. There are a few other smaller similar findings interspersed in the lower small bowel mesentery. There is diffuse small bowel wall thickening in the pelvis with adjacent inflammation consistent with enteritis, increased. There is also reactive inflammation of the cecum. No free air seen. No bowel obstruction. There is progressive heterogeneous appearance of the uterus, possible uterine infection. 10/13/24 IR procedure: Donaldo Kimble CT-guided abscess drainage of 8cm abscess with possible communication with suspected L pyosalpinx - pending fluid analysis + culture: many WBCs seen but no growth seen in culture as of 12:00 on 10/14/24 - continue drain/tube maintenance - Continue Zosyn IV 4.5g q8h, abx course 10-14 days total for now - CBC AM - consider repeating CT abd/pelvis in 1-2 days for reassessment #Left-side tubo-ovarian abscess vs hydrosalpinx CT 10/12/24- stable curved tubular fluid collection with enhancing wall measuring 6 cm greatest axial dimension, stable. This is consistent with pyosalpinx likely secondary to the diverticulitis. 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 There is stable wall thickening and inflammation at the sigmoid colon consistent with diverticulitis. There is also reactive inflammation of the cecum. No free air seen. No bowel obstruction. - Gen surg and IR consulted and following CBC AM #Sepsis - Pt is afebrile and BP has been normal to mildly elevated - Most likely cause of this is the perforation of the diverticulitis as source of infection CBC AM BL LE edema/SOB/Wheeze - CXR: Moderate Left and small right pleural effusions, cardiomegaly with mild vascular congestion - Likely due to volume overload from 3-4 days NPO and MIVF - Expect gradual resolution, LE edema and auscultation of lungs improving Chronic conditions #Depression/Insomnia - Allowed risperidone qhs with sip of water - Ativan PRN qhs #hypothyroidism - Hold levothyroxine, 88 mcg, PO, daily AM #Hypercholesterolemia - Hold atorvastatin Code status: Full code Disposition: Med-Tele FENGI: tolerating regular VTE prophylaxis: SCD's (to knee) Admission and Anticipated Discharge Date Admission Date: October 06, 2024 Supervising Physician Co-Signing Physician Notes ATTESTATION I also saw the patient and confirmed gonzales portions of the history and exam. I agree with the impression and plan in the resident documentation, and as summarized below. Patient OOB to chair. at bedside. All questions answered. She feels better. Less bloating. Denies abdominal pain. EXAM VSS, slight HTN Alert and oriented. No distress appreciated heart regular tachycardia with normal rhythm Non labored respirations Abd soft and non tender DATA Labs WBC has normalized HgB 8.4 BMP unremarkable Micro Gram stain and culture from IR drainage shows no growth to date IMPRESSION & PLAN sepsis/ peritonitis/ perforated diverticulum Leukocytosis improved today S/P IR drainage of right abdominal abscess yesterday Cultures with no growth to date Tolerating diet, pain resolved, leukocytosis resolved, increasing activity Consider re-image in 2-3 days, sooner if clinically regresses Patient with noted history of longstanding hydrosalpinx, best articulated in 10/06/24 gynecology note I discussed case with gynecology yesterday as well Will re-look at this area on follow up imaging - this will help differentiate acute from chronic changes Additional per resident documentation Subjective Renea was seen and evaluated at bedside this AM, feeling very good today. Denies any abdominal pain this morning, has been walking around her room and eating well without concerns. Endorses last night was the best night of sleep she had since she was admitted. Notes she had a normal bowel movement, before which she only had slight pain which is a significant improvement from a few days ago. Denies fever, body aches, chills, sweats, SOB, chest pain, LE pain. Physical Exam Physical Exam: General: A&Ox3, sitting comfortably, NAD, non-toxic in appearance, answers questions appropriately. HEENT: NC/AT, anicteric sclera, conjunctiva without injection, moist mucus membranes. CV: RRR, +s1/s2, no m/r/g Resp: clear to auscultation b/l, slightly decreased breath sounds on L base compared to R, no rales/rhonchi/wheezes GI/Abd: +BS, soft, mild tenderness to palpation of RUQ and RLQ, slight guarding during palpation, RLQ site surrounding drain tube nontender, non-erythematous, and non-swollen. - drain with about 100cc of bright yello w fluid, no sign of blood or pus Ext: warm, no clubbing/cyanosis, 2+ b/l LE pitting edema up to mid-miller, 1+ pitting edema up to knees, calves nontender to palpation Skin: warm, dry, intact Neuro:speech intact, no facial droop, moving all extremities Results & Data Results & Data Vital Signs (Past 12 Hours) Vital Signs Temp Pulse Pulse Resp BP Pulse Ox O2 Del Method 10/14/24 03:16 37.1 C 86 18 148/74 H 94 Room Air 10/13/24 23:00 85 10/13/24 22:39 36.9 C 82 17 148/71 H 95 Room Air Resident Activity Tracking Resident Involvement: Resident Care Provided Care Provided: Adult Hospital Medicine (3) Vomiting Nausea presence: with nausea Vomiting type: unspecified Qualified Code(s): R11.2 - Nausea with vomiting, unspecified (5) Hyperlipidemia Hyperlipidemia type: unspecified Qualified Code(s): E78.5 - Hyperlipidemia, unspecified (7) Depression Depression Type: unspecified Qualified Code(s): F32.A - Depression, unspecified
[2024-10-14 07:36] LABS: BUN Creatinine Ratio 8.3 (10-20); Creatinine Clr Calc Pharmacy 62.2 ml/min; Potassium 3.7 mmol/L (3.5-5.1)
--- NOTE | 2024-10-14 10:10 | Surgery Progress Note ---
Date of Service October 14, 2024 Assessment & Plan (1) Intra-abdominal abscess: (2) Left pyosalpinx: (3) Diverticulitis: Plan: avss leukocytosis resolved abdominal pain improving tolerating diet Plan: no acute surgical intervention required continue iv abx continue per drain management Consider another metal buffer consult for the left pyosalpinx continue medical management Discussed with DR. pinedo who agrees with above Admission and Anticipated Discharge Date Admission Date: October 06, 2024 Subjective feeling better today procedure yesterday went very well abdominal pain in lower abdomen is less today tolerated soft diet this am no n,v no fevers or chills urinating without difficulty drain functioning , bag just emptied Physical Exam Constitutional: WD/WN, vitals as above cooperative and comfortable; no acute distress and not ill appearing Respiratory: normal respiratory effort; no respiratory distress and no labored breathing Gastrointestinal (Abdomen): Inspection/Auscultation: abdomen normal to inspection, + abdomen distended (mild distension, improving) and + abdominal surgical drain present (perc drain right lower abdomen/pelvis, yellow fluid pres ent in tubing) Percussion/Palpation: + abdomen tender (lower abdomen bilaterally but improved) and abdomen soft; no guarding and abdomen not rigid Skin: no rashes, warm and dry Psychiatric: A+Ox3, euthymic affect Results & Data Vital Signs (Past 12 Hours) Vital Signs Temp Pulse Pulse Resp BP Pulse Ox O2 Del Method 10/14/24 07:53 37.0 C 91 H 18 152/81 H 94 Room Air 10/14/24 03:16 37.1 C 86 18 148/74 H 94 Room Air 10/13/24 23:00 85 10/13/24 22:39 36.9 C 82 17 148/71 H 95 Room Air Laboratory Results 10/14/24 Range/Units 05:42 WBC 9.35 (4.8-10.8) K/ul RBC 3.16 L (4.20-5.40) M/uL Hgb 8.4 L (12.0-16.0) g/dl Hct 26.0 L (37.0-47.0) % MCV 82.3 (80.0-100.0) fL MCH 26.6 (25.0-34.0) pg MCHC 32.3 (32.0-36.0) g/dL RDW Std Deviation 48.2 H (36.4-46.3) fL RDW Coeff of Dinesh 16.0 H (11.5-14.5) % Plt Count 385 (130-400) K/uL MPV 9.2 L (9.4-12.4) fL Sodium 136 (136-145) mmol/L Potassium 3.7 (3.5-5.1) mmol/L Chloride 108 H (98-107) mmol/L Carbon Dioxide 25 (21-32) mmol/L Anion Gap 3 (3-11) BUN 5 L (6-23) mg/dl Creatinine 0.60 (0.6-1.2) mg/dl Est Cr Clr Drug Dosing 62.2 ml/min eGFR 87.91 BUN/Creatinine Ratio 8.3 L (10-20) Glucose 94 (70-99(Fasting)) mg/dl Calcium 8.0 L (8.6-10.3) mg/dl
--- NOTE | 2024-10-15 06:38 | Hospitalist Progress Note ---
Date of Service October 15, 2024 Assessment & Plan (1) Intra-abdominal abscess: (2) Left pyosalpinx: (3) Vomiting: (4) Diverticulitis: (5) Hyperlipidemia: (6) Thyroid disease: (7) Depression: Plan Patient is a 84 yo F w/ a PMHx of diverticulitis, Hx of BCC, osteoporosis, dep ression, hypothyroidism, anemia, Hx of breast cancer, presenting to ED on 10/05 w/ LLQ pain of about a week, accompanied by N/V and a fever of 102 F. WBC continues to increase and pt remains tachycardic, but reporting improvement in pain symptoms. Now s/p 8cm abscess drainage post-procedure day 1, having minimal pain and WBCs normalizing. #Intra-abdominal Abscess CT 10/12/24: mid-anterior pelvis at midline extending to the right of midline there is an 8 cm fluid collection with enhancing wall consistent with abscess. The abscess is mostly surrounded by small bowel loops. There are a few other smaller similar findings interspersed in the lower small bowel mesentery. There is diffuse small bowel wall thickening in the pelvis with adjacent inflammation consistent with enteritis, increased. There is also reactive inflammation of the cecum. No free air seen. No bowel obstruction. There is progressive heterogeneous appearance of the uterus, possible uterine infection. 10/13/24 IR procedure: Donaldo Kimble CT-guided abscess drainage of 8cm abscess with possible communication with suspected L pyosalpinx - pending fluid analysis + culture: many WBCs seen but no growth seen in culture as of 12:00 on 10/14/24 - continue drain/tube maintenance - Continue Zosyn IV 4.5g q8h, abx course 10-14 days total for now - CBC AM - consider repeating CT abd/pelvis tomorrow 10/16/24 for reassessment #Left-side tubo-ovarian abscess vs hydrosalpinx CT 10/12/24- stable curved tubular fluid collection with enhancing wall measuring 6 cm greatest axial dimension, stable. This is consistent with pyosalpinx likely secondary to the diverticulitis. 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 There is stable wall thickening and inflammation at the sigmoid colon consistent with diverticulitis. There is also reactive inflammation of the cecum. No free air seen. No bowel obstruction. - Gen surg and IR consulted and following CBC AM #Sepsis - Pt is afebrile and BP has been normal to mildly elevated - Most likely cause of this is the perforation of the diverticulitis as source of infection CBC AM BL LE edema/SOB/Wheeze - CXR: Moderate Left and small right pleural effusions, cardiomegaly with mild vascular congestion - Likely due to volume overload from 3-4 days NPO and MIVF - Expect gradual resolution, LE edema and auscultation of lungs improving Chronic conditions #Depression/Insomnia - Allowed risperidone qhs with sip of water - Ativan PRN qhs #hypothyroidism - Hold levothyroxine, 88 mcg, PO, daily AM #Hypercholesterolemia - Hold atorvastatin Code status: Full code Disposition: Med-Tele FENGI: tolerating regular VTE prophylaxis: SCD's (to knee) Admission and Anticipated Discharge Date Admission Date: October 06, 2024 Supervising Physician Co-Signing Physician Notes I personally examined the patient and verified gonzales points of history and exam, discussed case, and agree with decision making and plan documented by Dr. El. On exam, patient was resting comfortably, denied pain, she is tolerating p.o., vital signs have been stable. Drain in place for pelvic abscess, currently draining clear yellow fluid, gram stain/culture negative. Plan is to repeat CT scan to reevaluate situation and discuss with surgery and [employer] HELPER. Patient remains on IV Zosyn. Darcie Meier was seen and evaluated at bedside this AM, feeling very good again today. Denies any abdominal pain this morning except for minor irritation around tube site, otherwise no concerns. Has been walking around her room and eating well without issue. Endorses she slept well again last night. Notes she had 3 regular bowel movement overnight with 3-4/10 pain just before going. Overall better than in the preceding days. Denies fever, body aches, chills, sweats, SOB, chest pain, LE pain. Physical Exam Physical Exam: General: A&Ox3, sitting comfortably, NAD, non-toxic in appearance HEENT: NC/AT, anicteric sclera, conjunctiva without injection, moist mucus membranes. CV: RRR, +s1/s2, no m/r/g Resp: clear to auscultation b/l, slightly decreased breath sounds on L base compared to R, no rales/rhonchi/wheezes GI/Abd: +BS, soft, mild tenderness to palpation of RUQ and RLQ, slight guarding during palpation, RLQ site surrounding drain tube nontender, non-erythematous, and non-swollen. - drain with about 40cc of bright yellow fluid, no sign of blood or pus Ext: warm, no clubbing/cyanosis, 2+ b/l LE pitting edema up to mid-miller, 1+ pitting edema up to knees, calves nontender to palpation Skin: warm, dry, intact Neuro:speech intact, no facial droop, moving all extremities Results & Data Results & Data Vital Signs (Past 12 Hours) Vital Signs Temp Pulse Pulse Resp BP Pulse Ox O2 Del Method 10/15/24 03:00 36.8 C 92 H 17 140/65 94 Room Air 10/14/24 23:56 83 10/14/24 23:00 36.8 C 91 H 18 158/81 H 95 Room Air 10/14/24 19:00 37.2 C 90 20 151/94 H 95 Room Air Resident Activity Tracking Resident Involvement: Resident Care Provided Care Provided: Adult Hospital Medicine (3) Vomiting Nausea presence: with nausea Vomiting type: unspecified Qualified Code(s): R11.2 - Nausea with vomiting, unspecified (5) Hyperlipidemia Hyperlipidemia type: unspecified Qualified Code(s): E78.5 - Hyperlipidemia, unspecified (7) Depression Depression Type: unspecified Qualified Code(s): F32.A - Depression, unspecified
[2024-10-15 06:43] LABS: Hematocrit (blood only) 27.7 % (37.0-47.0); Hemoglobin 8.9 g/dl (12.0-16.0); Mean Corpuscular Hemoglobin 26.5 pg (25.0-34.0); Mean Corpuscular Hgb Conc 32.1 g/dL (32.0-36.0); Mean Corpuscular Volume 82.4 fL (80.0-100.0); Mean Platelet Volume 9.3 fL (9.4-12.4); Platelet Count 462 K/uL (130-400); RDW Coefficient of Variation 16.1 % (11.5-14.5); RDW Standard Deviation 48.5 fL (36.4-46.3); Red Blood Count 3.36 M/uL (4.20-5.40); White Blood Count 9.16 K/ul (4.8-10.8)
[2024-10-15 07:01] LABS: BUN Creatinine Ratio 7.4 (10-20); Calcium 8.3 mg/dl (8.6-10.3); Creatinine Clr Calc Pharmacy 54.9 ml/min; Potassium 3.8 mmol/L (3.5-5.1)
--- NOTE | 2024-10-15 10:15 | Surgery Progress Note ---
Date of Service October 15, 2024 Assessment & Plan (1) Intra-abdominal abscess: (2) Left pyosalpinx: Plan: Chronic hydrosalpinx Possible fistula from the diverticulitis, could reassess on repeat CT scan (3) Diverticulitis: Plan: avss leukocytosis resolved abdominal pain improving tolerating diet Plan: no acute surgical intervention required continue iv abx continue perc drain management will need repeat CT scan to assess abscess and response to perc drain however would recommend repeating CT no earlier than Friday10/17/[address] Siegel covering the weekend Dr. Patel has seen and examined patient, agrees with above. Admission and Anticipated Discharge Date Admission Date: October 06, 2024 Subjective feeling good today pain is improving, only mild prior to bowel movements tolerating diet no n,v no fevers or chills Physical Exam Constitutional: WD/WN, vitals as above cooperative and comfortable; no acute distress and not ill appearing Gastrointestinal (Abdomen): Inspection/Auscultation: abdomen normal to inspection and + abdominal surgical drain present (serous drainage present) Skin: no rashes, warm and dry Psychiatric: A+Ox3, euthymic affect Results & Data Vital Signs (Past 12 Hours) Vital Signs Temp Pulse Pulse Resp BP Pulse Ox O2 Del Method 10/15/24 07:52 36.7 C 95 H 18 119/72 96 Room Air 10/15/24 03:00 36.8 C 92 H 17 140/65 94 Room Air 10/14/24 23:56 83 10/14/24 23:00 36.8 C 91 H 18 158/81 H 95 Room Air Laboratory Results 10/15/24 Range/Units 06:00 WBC 9.16 (4.8-10.8) K/ul RBC 3.36 L (4.20-5.40) M/uL Hgb 8.9 L (12.0-16.0) g/dl Hct 27.7 L (37.0-47.0) % MCV 82.4 (80.0-100.0) fL MCH 26.5 (25.0-34.0) pg MCHC 32.1 (32.0-36.0) g/dL RDW Std Deviation 48.5 H (36.4-46.3) fL RDW Coeff of Dinesh 16.1 H (11.5-14.5) % Plt Count 462 H (130-400) K/uL MPV 9.3 L (9.4-12.4) fL Sodium 136 (136-145) mmol/L Potassium 3.8 (3.5-5.1) mmol/L Chloride 105 (98-107) mmol/L Carbon Dioxide 26 (21-32) mmol/L Anion Gap 5 (3-11) BUN 5 L (6-23) mg/dl Creatinine 0.68 (0.6-1.2) mg/dl Est Cr Clr Drug Dosing 54.9 ml/min eGFR 85.29 BUN/Creatinine Ratio 7.4 L (10-20) Glucose 103 H (70-99(Fasting)) mg/dl Calcium 8.3 L (8.6-10.3) mg/dl Microbiology 10/13/24 Unknown Gram Stain - Final Abdomen, Right Lower Quadrant Aerobic and Anaerobic Culture - Preliminary No growth to date.
--- NOTE | 2024-10-16 04:55 | Surgery Progress Note ---
Date of Service October 16, 2024 Assessment & Plan (1) Diverticulitis large intestine w/o perforation or abscess w/bleeding: Plan: Patient has been admitted on the hospitalist service. From surgery perspective we recommend the following: Provide analgesics and antiemetics as needed Continue diet as tolerated Continue antibiotics in the form of Zosyn while hospitalized with plans to transition to oral antibiotics at time of discharge Consideration is being given to repeating a CT scan to assess response to drainage and also the possible development of a fistula (plans by previous surgical team note scan should be repeated no earlier than 10/17/2024) Check a.m. labs when available Mobilize as able Admission and Anticipated Discharge Date Admission Date: October 06, 2024 Supervising Physician Co-Signing Physician Notes Patient seen examined, labs and imaging reviewed, agree with above. Status post diverticular abscess drainage by IR, WBC normalized, feeling better, having bowel movements, tolerating diet. On exam she is afebrile stable vitals, drain in place with purulent fluid, abdomen soft, nontender. WBC normal. Will plan for repeat CT scan with oral and IV contrast tomorrow morning. Potential discharge with drain in place and on oral antibiotics if significant improvement. Further evaluation of the hydrosalpinx/pyosalpinx should be deferred to gynecology. Subjective Patient is resting comfortably in bed. She denies significant abdominal pain. She is tolerating solid food without exacerbating abdominal pain or without nausea or vomiting. She does not her bowels have moved since she has been hospitalized Physical Exam Gastrointestinal (Abdomen): Abdomen is soft and nondistended. There is minimal pain with palpation. Surgical drain is present. Results & Data Vital Signs (Past 12 Hours) Vital Signs Temp Pulse Pulse Resp BP Pulse Ox Pulse Ox 10/16/24 04:08 36.9 C 81 18 131/64 94 10/16/24 03:00 94 10/16/24 01:08 88 10/15/24 23:15 36.9 C 87 16 142/67 H 95 10/15/24 19:11 37.1 C 93 H 18 139/81 94 O2 Del Method O2 Del Method 10/16/24 04:08 Room Air 10/16/24 03:00 Room Air 10/16/24 01:08 10/15/24 23:15 Room Air 10/15/24 19:11 Room Air PG Care Time/CCT Total # of Minutes Spent Total Time Spent with Patient: Total time spent is greater than 50% in coordination of care (as documented) at patient's floor/unit and/or counseling patient: Coding Level of Care Code 65451 SUB INP/OBS CARE Diagnoses Diverticulitis large intestine w/o perforation or abscess w/bleeding K57.33
[2024-10-16 06:31] LABS: Hematocrit (blood only) 26.3 % (37.0-47.0); Hemoglobin 8.4 g/dl (12.0-16.0); Mean Corpuscular Hemoglobin 26.3 pg (25.0-34.0); Mean Corpuscular Hgb Conc 31.9 g/dL (32.0-36.0); Mean Corpuscular Volume 82.4 fL (80.0-100.0); Mean Platelet Volume 9.3 fL (9.4-12.4); Platelet Count 453 K/uL (130-400); RDW Coefficient of Variation 16.1 % (11.5-14.5); RDW Standard Deviation 48.9 fL (36.4-46.3); Red Blood Count 3.19 M/uL (4.20-5.40); White Blood Count 9.35 K/ul (4.8-10.8)
[2024-10-16 06:33] LABS: BUN Creatinine Ratio 6.8 (10-20); Calcium 8.2 mg/dl (8.6-10.3); Potassium 3.9 mmol/L (3.5-5.1)
--- NOTE | 2024-10-16 06:55 | Hospitalist Progress Note ---
Date of Service October 16, 2024 Assessment & Plan (1) Intra-abdominal abscess: (2) Left pyosalpinx: (3) Vomiting: (4) Diverticulitis: (5) Hyperlipidemia: (6) Thyroid disease: (7) Depression: Plan Patient is a 84 yo F w/ a PMHx of diverticulitis, Hx of BCC, osteoporosis, dep ression, hypothyroidism, anemia, Hx of breast cancer, presenting to ED on 10/05 w/ LLQ pain of about a week, accompanied by N/V and a fever of 102 F. WBC continues to increase and pt remains tachycardic, but reporting improvement in pain symptoms. Now s/p 8cm abscess drainage post-procedure day 1, having minimal pain and WBCs normalizing. #Intra-abdominal Abscess CT 10/12/24: mid-anterior pelvis at midline extending to the right of midline there is an 8 cm fluid collection with enhancing wall consistent with abscess. The abscess is mostly surrounded by small bowel loops. There are a few other smaller similar findings interspersed in the lower small bowel mesentery. There is diffuse small bowel wall thickening in the pelvis with adjacent inflammation consistent with enteritis, increased. There is also reactive inflammation of the cecum. No free air seen. No bowel obstruction. There is progressive heterogeneous appearance of the uterus, possible uterine infection. 10/13/24 IR procedure: Donaldo Kimble CT-guided abscess drainage of 8cm abscess with possible communication with suspected L pyosalpinx - pending fluid analysis + culture: many WBCs seen but no growth seen in culture as of 08:40 on 10/16/24 - continue drain/tube maintenance - Continue Zosyn IV 4.5g q8h, abx course 10-14 days total for now - WBCs have remained stable CBC AM - Abscess fluid content analysis showing high alkalinity, high blood/hgb, bilirubin, high protein content; urine showing acidity, slightly positive nitrites, and trace protein content Thus likely the fluid draining from abscess is not urine despite having coloration consistent with urine plan to repeat CT abd/pelvis tomorrow 10/17 per patient agreement with hospitalist and surgical team #Left-side tubo-ovarian abscess vs hydrosalpinx CT 10/12/24- stable curved tubular fluid collection with enhancing wall measuring 6 cm greatest axial dimension, stable. This is consistent with py osalpinx likely secondary to the diverticulitis. - ObGyn consulted - chronic finding and known history of hydrosalpinx on the left, CT findings suggestive of fistula from bowel to repro organs, stable, no surgery indicated - 10/13/24 reached back out to on-call switch repairer regarding increased suspicion of pyosalpinx as IR not willing to drain, surgery not willing to touch - CT abdomen/pelvis 10/17 to reassess - WBCs have remained stable CBC AM #?Perforated diverticulitis of sigmoid colon CT 10/12/24: extensive sigmoid diverticulosis. There is stable wall thickening a nd inflammation at the sigmoid colon consistent with diverticulitis. There is also reactive inflammation of the cecum. No free air seen. No bowel obstruction. - Gen surg and IR consulted and following CBC AM #Sepsis - Pt is afebrile and BP has been normal to mildly elevated - Most likely cause of this is the perforation of the diverticulitis as source of infection CBC AM BL LE edema/SOB/Wheeze - CXR: Moderate Left and small right pleural effusions, cardiomegaly with mild vascular congestion - Likely due to volume overload from 3-4 days NPO and MIVF - Expect gradual resolution, LE edema and auscultation of lungs improving Chronic conditions #Depression/Insomnia - Allowed risperidone qhs with sip of water - Ativan PRN qhs #hypothyroidism - Hold levothyroxine, 88 mcg, PO, daily AM #Hypercholesterolemia - Hold atorvastatin Code status: Full code Disposition: Med-Tele FENGI: tolerating regular VTE prophylaxis: SCD's (to knee) Admission and Anticipated Discharge Date Admission Date: October 06, 2024 Supervising Physician Co-Signing Physician Notes I personally examined the patient and verified gonzales points of history and exam, discussed case, and agree with decision making and plan documented by Dr. El. Patient reports disrupted sleep last night, feeling tired, denies pain. Drain placed 10/13/[address] for pelvic abscess with clear yellow fluid, gram stain/culture negative. Repeat CT scan recommended tomorrow. Continue IV Zosyn. Darcie Meier was seen and evaluated at bedside this AM, appearing well and in no distress. Continues to deny any pain at this time or overnight. Feeling a bit down and depressed today, feels it's due to lack of quality sleep last night and just being in the hospital for so long. States she has still been eating without issue and has a few loose bowel movements with up to 2/10 pain but no diarrhea. Notes she has been getting up to urinate frequently, and it is more clear than the fluid draining from her abdomen. States she spoke with Dr. Siegel from surgery today, she's now feeling okay to have CT scan done tomorrow 10/17 so that if she needs to be transferred, it can easily be done on Wednesday 10/18. Has not had any fever, body aches, chills, sweats, headaches, nausea/vomiting, SOB. Physical Exam Physical Exam: General: A&Ox3, sitting comfortably, NAD, non-toxic in appearance HEENT: NC/AT, anicteric sclera, conjunctiva without injection, moist mucus membranes. CV: RRR, +s1/s2, no m/r/g Resp: clear to auscultation b/l, slightly decreased breath sounds on L base compared to R, no rales/rhonchi/wheezes GI/Abd: +BS, soft, mild tenderness to palpation of RUQ and RLQ, slight guarding during palpation, RLQ site surrounding drain tube nontender, non-erythematous, and non-swollen. - drain with about 100cc of bright yello w fluid, no sign of blood or pus Ext: warm, no clubbing/cyanosis, 2+ b/l LE pitting edema up to mid-miller, 1+ pitting edema up to knees, calves nontender to palpation Skin: warm, dry, intact Neuro:speech intact, no facial droop, moving all extremities Results & Data Results & Data Vital Signs (Past 12 Hours) Vital Signs Temp Pulse Pulse Resp BP Pulse Ox Pulse Ox 10/16/24 04:08 36.9 C 81 18 131/64 94 10/16/24 03:00 94 10/16/24 01:08 88 10/15/24 23:15 36.9 C 87 16 142/67 H 95 10/15/24 19:11 37.1 C 93 H 18 139/81 94 O2 Del Method O2 Del Method 10/16/24 04:08 Room Air 10/16/24 03:00 Room Air 10/16/24 01:08 10/15/24 23:15 Room Air 10/15/24 19:11 Room Air Resident Activity Tracking Resident Involvement: Resident Care Provided Care Provided: Adult Hospital Medicine (3) Vomiting Nausea presence: with nausea Vomiting type: unspecified Qualified Code(s): R11.2 - Nausea with vomiting, unspecified (5) Hyperlipidemia Hyperlipidemia type: unspecified Qualified Code(s): E78.5 - Hyperlipidemia, unspecified (7) Depression Depression Type: unspecified Qualified Code(s): F32.A - Depression, unspecified
[2024-10-17] MEDS ORDERED: Nursing to Pharmacy Communication SCH (06:00)
[2024-10-17 06:36] LABS: Hematocrit (blood only) 28.6 % (37.0-47.0); Mean Corpuscular Hemoglobin 26.2 pg (25.0-34.0); Mean Corpuscular Hgb Conc 31.5 g/dL (32.0-36.0); Mean Corpuscular Volume 83.1 fL (80.0-100.0); Platelet Count 519 K/uL (130-400); RDW Coefficient of Variation 16.3 % (11.5-14.5); RDW Standard Deviation 49.2 fL (36.4-46.3); Red Blood Count 3.44 M/uL (4.20-5.40); White Blood Count 9.13 K/ul (4.8-10.8)
[2024-10-17 06:55] LABS: Calcium 8.5 mg/dl (8.6-10.3); Creatinine Clr Calc Pharmacy 57.4 ml/min
--- NOTE | 2024-10-17 08:31 | Surgery Progress Note ---
Date of Service October 17, 2024 Assessment & Plan (1) Diverticulitis: Plan: Diverticulitis with abscess, feels much better since drainage. Follow-up repeat CT abdomen pelvis with oral and IV contrast If looks okay, could consider discharge on oral antibiotics Outpatient follow-up for drain removal Would consider elective sigmoidectomy in a few months after the inflammation decreased (2) Intra-abdominal abscess: Admission and Anticipated Discharge Date Admission Date: October 06, 2024 Subjective Diverticular abscess status post IR drainage. Continues to feel well. Drinking contrast for CT Physical Exam Constitutional: WD/WN, vitals as above Respiratory: normal respiratory effort, lungs clear to auscultation Cardiovascular: RRR, no murmur, no edema Gastrointestinal (Abdomen): normal bowel sounds, soft, nontender, no hepatosplenomegaly Drain minimal output since yesterday Results & Data Vital Signs (Past 12 Hours) Vital Signs Temp Pulse Pulse Resp BP Pulse Ox O2 Del Method 10/17/24 07:46 36.5 C 88 18 168/83 H 97 Room Air 10/17/24 01:51 36.9 C 88 16 137/71 94 Room Air 10/16/24 23:21 36.8 C 86 18 124/66 94 Room Air 10/16/24 23:00 80 Laboratory Results Laboratory Results - last 24 hr 10/17/24 06:00 WBC 9.13 RBC 3.44 L Hgb 9.0 L Hct 28.6 L MCV 83.1 MCH 26.2 MCHC 31.5 L RDW Std Deviation 49.2 H RDW Coeff of Dinesh 16.3 H Plt Count 519 H MPV 9.0 L Sodium 138 Potassium 4.0 Chloride 105 Carbon Dioxide 27 Anion Gap 6 BUN 6 Creatinine 0.67 Est Cr Clr Drug Dosing 57.4 eGFR 85.60 BUN/Creatinine Ratio 9.0 L Glucose 95 Calcium 8.5 L PG Care Time/CCT Total # of Minutes Spent Total Time Spent with Patient: Total time spent is greater than 50% in coordination of care (as documented) at patient's floor/unit and/or counseling patient: Coding Level of Care Code 38922 SUB INP/OBS CARE 235MIN Diagnoses Diverticulitis K57.92 Intra-abdominal abscess K65.1
[2024-10-17] MEDS: OPTIRAY 320 100ml IV ONE (09:44)
--- NOTE | 2024-10-17 10:46 | CT Scan Report ---
CT OF THE ABDOMEN AND PELVIS WITH CONTRAST CLINICAL HISTORY: f/u diverticular abscess s/p drainage COMPARISON STUDY: CT of the abdomen and pelvis October 12, 2024. TECHNIQUE: Following IV administration of 94 mL of Optiray, axial images of the abdomen and pelvis we re obtained from the lung bases to the proximal femurs. Images were reviewed in the axial, sagittal, and coronal planes. IV contrast was administered without complication. Automated exposure control wa s utilized for the study. A dose lowering technique was utilized adhering to the principles of ALARA . Oral contrast was administered. CT DOSE: 994.7 mGy.cm FINDINGS: Small bilateral pleural effusions are similar to prior CT. Subpleural opacities represent a telectasis. A moderate sized hiatal hernia with partially intrathoracic stomach is noted. No pneumato sis, free air or portal venous gas is present. The medial segment hepatic cyst is again noted. There is no biliary or pancreatic ductal dilatation. Spleen, left adrenal gland and pancreas are unremarkab le. Is no biliary or pancreatic ductal dilatation. A small right adrenal nodule remains unchanged fro m earlier exams. This is benign given stability. There is no evidence for a bowel obstruction. Sigmoi d diverticulosis is noted with sigmoid colon wall thickening. There is adjacent inflammation. Interva l placement of a right pelvic fluid collection is noted. The drain is well positioned. A small amount of gas within the collection is likely related to drain placement. The fluid collection has signific antly decreased in size. This now measures 5.3 x 3.9 cm, previously 7.9 x 6.4 cm. Additional smaller rim-enhancing fluid collections within the mesentery have also improved. Mesenteric stranding and sma ll bowel wall thickening have improved. Dilated left fallopian tube measures 3 cm in caliber is simil ar in caliber to prior exam. There is wall thickening of the left fallopian tube. Gas within the left fallopian tube is now noted. Fluid within the endometrial cavity with endometrial enhancement is unc hanged. Suspected fistula is adjacent to the sigmoid colon are noted. These include a presacral fistu la with associated fluid. The extraluminal gas is decreased since prior CT. No new rim-enhancing flui d collections are present. IMPRESSION: 1. Findings consistent with sigmoid diverticulitis. Overall, improvement since CT of October 12, 2024. Significant decrease in size of the right pelvic abscess status post drain placement. Interval decrea se in size of smaller abscesses within the mesentery with improvement in small bowel wall thickening and mesenteric inflammation. Decrease in extraluminal pockets of gas adjacent to the sigmoid colon wh ich favor fistulas/contained perforation. Stable presacral fluid and enhancement suggestive of phlegm on. No new abscesses. 2. Persistent dilatation and wall enhancement of the left fallopian tube which now contains gas. This is suggestive of a left pyosalpinx. Fluid and endometrial enhancement raises the possibility of uter ine infection. 3. No bowel obstruction. 4. No change in small bilateral pleural effusions with associated atelectasis. ACT 112: Negative or not required by law. Electronically signed by: Philip Landa M.D. 10/17/2024 10:44 AM
[2024-10-17 11:22] VITALS: BP 130/81; PULSE 89; RESP 16; TEMP 98.2; O2SAT 95
--- NOTE | 2024-10-17 16:16 | Discharge Summary ---
Discharge Summary Date of Service October 17, 2024 Principal Dx & Hospital Course #1 = Principal Diagnosis (1) Intra-abdominal abscess: (2) Left pyosalpinx: (3) Vomiting: (4) Diverticulitis: (5) Hyperlipidemia: (6) Thyroid disease: (7) Depression: Plan Patient is a 84 yo F w/ a PMHx of diverticulitis, Hx of BCC, osteoporosis, depression, hypothyroidism, anemia, Hx of breast cancer, presenting to ED on 10/05 w/ LLQ pain of about a week, accompanied by N/V and a fever of 102 F. WBC continues to increase and pt remains tachycardic, but reporting improvement in pain symptoms. Now s/p 8cm abscess drainage post-procedure day 1, having minimal pain and WBCs normalizing. #Intra-abdominal Abscess CT 10/12/24: mid-anterior pelvis at midline extending to the right of midline there is an 8 cm fluid collection with enhancing wall consistent with abscess. The abscess is mostly surrounded by small bowel loops. There are a few other smaller similar findings interspersed in the lower small bowel mesentery. There is diffuse small bowel wall thickening in the pelvis with adjacent inflammation consistent with enteritis, increased. There is also reactive inflammation of the cecum. No free air seen. No bowel obstruction. There is progressive heterogeneous appearance of the uterus, possible uterine infection. 10/13/24 IR procedure: Donaldo Kimble CT-guided abscess drainage of 8cm abscess with possible communication with suspected L pyosalpinx - pending fluid analysis + culture: many WBCs seen but no growth seen in culture as of 08:40 on 10/16/24 - continue drain/tube maintenance - Continue Zosyn IV 4.5g q8h, abx course 10-14 days total for now - WBCs have remained stable - Abscess fluid content analysis showing high alkalinity, high blood/hgb, bilirubin, high protein content; urine showing acidity, slightly positive nitrites, and trace protein content Thus likely the fluid draining from abscess is not urine despite having coloration consistent with urine plan to repeat CT abd/pelvis tomorrow 10/17 per patient agreement with hospitalist and surgical team 10/17: I personally reviewed the CT report and CT images today, she continues to have pelvic abscess though smaller in size and the drain is in correct position. I reviewed this with the covering surgeon Dr. Siegel we feel she is able to discharge home today with the drain in place on a long course of oral a ntibiotics I prescribed 14 days of Augmentin which can be stopped early or extended depending on her clinical course. She will follow-up in surgery clinic. drain teaching was completed and home health RN was ordered #Left-side tubo-ovarian abscess vs hydrosalpinx CT 10/12/24- stable curved tubular fluid collection with enhancing wall measuring 6 cm greatest axial dimension, stable. This is consistent with pyosalpinx likely secondary to the diverticulitis. 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 Set Up [employer]ger consult notes which I reviewed say that TOA would be unlikely in her case. Surgical intervention was not recommended. I requested she schedule follow-up with her machine pecan picker #Presumed Perforated diverticulitis of sigmoid colon - etiology of pelvic abscess CT 10/12/24: extensive sigmoid diverticulosis. There is stable wall thickening and inflammation at the sigmoid colon consistent with diverticulitis. There is also reactive inflammation of the cecum. No free air seen. No bowel ob struction. as above #Sepsis - present on admission and resolved BL LE edema/SOB/Wheeze - CXR: Moderate Left and small right pleural effusions, cardiomegaly with mild vascular congestion - Likely due to volume overload from 3-4 days NPO and MIVF - Expect gradual resolution, LE edema and auscultation of lungs improving does not appear volume overloaded day of discharge. Some mild/mod LE edema improving. Chronic conditions #Depression/Insomnia - risperidone qhs and trazodone #hypothyroidism - levothyroxine, 88 mcg, PO, daily AM #Hypercholesterolemia - resume atorvastatin Admission HPI Per Admitting Provider Patient is a 84 yo F w/ a PMHx of diverticulitis, Hx of BCC, osteoporosis, depression, hypothyroidism, anemia, Hx of breast cancer, presenting today w/ LLQ pain of about a week, accompanied by N/V and a fever of 102 F. Patient states that she has been experiencing LLQ AP for about a week, off and on. Patient had a bout of diverticulitis in the summertime and since that time has had lingering pain from what she assumed was the diverticulitis. In late Jun, 2024, pt had a second bout of diverticulitis, took another round of antibiotics. Patient started taking Miralax after the second bout of diverticulitis and found that she'd get diarrhea from it, and started taking it every other day. Besides that, the patient hasn't noticed any other changes in her bowel movements, no blood in the stool, no dark-colored stools. Patient has not been following with an ObGyn for years, does not have intercourse, and had not noticed any pain that seemed more inferior to the "diverticular pain" she'd experienced recently. Patient rates the pain right now as a 4/10, states that it has been worse after meals. Patient has been experiencing N/V and had a fever of 102 F today. Patient's last BM was today, she had an episode of diarrhea after the CT scan. Patient feels like she typically gets enough fiber in her diet and has been supplementing with Metamucil at advice of her doctor since the last episode. Last colonoscopy was in 2022, was told to F/U in 3 yrs. Patient denies increased freq/urgency of urination, denies dysuria, denies flank pain. Patient also denies CP, palpitations; cough or wheezing, but does endorse some chronic dyspnea. Discharge Plan Discharge Items Patient Disposition: Home - Home Health Services Reason For Visit: ABDOMINAL PAIN Discharge Diagnosis: intraabdominal abscess Condition on Discharge: Serious Activity: Per Instructions section Weightbearing: Full weightbearing Non-emergency contact: Primary Care Provider and Surgeon Call non-emergency contact if: you have any medication questions, your symptoms worsen, your pain is worsening, you have a fever, your wound has increased redness, your wound has increased drainage and your wound pain has increased Follow-up/Referrals: Donaldo Mckeon DO [Surgeon] - Macie Parish DO [Primary Care Provider] - 10/26/24 11:00 am (Scheduled with Marsha Argueta PA-C on 10/26/24 at 11:00 am) Diet: Regular Addtl Attending Provider Instructions: You were treated for pelvic abscess - its highly likely that this was caused by diverticuitis. Leave the drain in place and follow up with Dr. Mckeon within 2 weeks. Follow up with your machine pecan picker about the enlarged fallopian tube on the left side - its been that way for a long time, but its right next to the abscess and has some infection/inflammation related to that. You'll need a long course of antibiotics - I prescribed augmentin for two weeks. Dr. Mckeon can extend it or stop it early, if necessary. You can take the cholestyramine if it helps, but you can stop it if you aren't needing it. Its to help bulk the stool and prevent loose stools. If you develop severe watery diarrhea (especially with abdominal pain or fever) within the next 6 months, seek medical attention right away Its a good idea to take a probiotic - can get in drugstore Pending Studies at Discharge: No Stand-Alone Forms: My [facility], Smoking Cessation Medications and DC Order Prescriptions: New cholestyramine-aspartame [Prevalite] 4 gram Powder In Packet 1 ea PO BID@1000,2200 Qty: 60 0RF acetaminophen 325 mg Tablet 650 mg PO Q4H MDD 3000 mg PRN (Reason: fever or pain) Qty: 0 0RF amoxicillin-pot clavulanate 875-125 mg tablet 1 tab PO BID Qty: 28 0RF Continued cholecalciferol (vitamin D3) 125 mcg (5,000 unit) capsule 125 mcg PO DAILY vitamin B complex Tablet 1 tab PO DAILY atorvastatin 10 mg tablet 10 mg PO HS risperidone 1 mg tablet 1 mg PO HS trazodone 50 mg tablet 25 mg PO HS PRN (Reason: Sleep) Rx Instructions: may repeat once if needed levothyroxine 88 mcg tablet 88 mcg PO DAILYBB turmeric 400 mg Capsule 800 mg PO DAILY Discharge Orders: Discharge Order (Routine); Ordered 10/17/24 Ordered By: Yessenia Felton Admission Data Admit Date/Time: 10/06/24 01:03 Attending Provider: Yessenia Felton Admit Provider: Gabe Larios Primary Care Provider: Macie Parish Other Providers: Roque Steven; Donaldo Mckeon; Delia Saucedo; Abhishek Lindo; Rebecca Beaver; Karis Guevara; Tamiko Del Toro; Vitaly Solano; Theodora Moore; Mary Espinoza; Joan Osuna; López Bowden; Irais Horne [facility] Stay Data Consultations 10/05/24 22:46 ED Decision to Admit Stat 10/06/24 01:08 Consult General Surgery Routine 10/06/24 01:14 Consult Gynecology Stat Diagnostic Imagining Performed 10/05/24 19:59 CT abd pelvis IV con only Stat 10/06/24 09:34 US Pelvis [US pelvic complete] Stat US transvaginal Stat 10/12/24 08:54 CT Abd and Pelvis [CT abd pelvis oral and IV con] Routine 10/13/[address] periton/retro w/gdnce Routine 10/17/24 06:00 CT abdomen oral and IV con Routine Pending Results Patient Have Any Pending Studies at Discharge: No Discharge Instructions Given to Patient (Per Discharging Provider) You were treated for pelvic abscess - its highly likely that this was caused by diverticuitis. Leave the drain in place and follow up with Dr. Mckeon within 2 weeks. Follow up with your machine pecan picker about the enlarged fallopian tube on the left side - its been that way for a long time, but its right next to the abscess and has some infection/inflammation related to that. You'll need a long course of antibiotics - I prescribed augmentin for two weeks. Dr. Mckeon can extend it or stop it early, if necessary. You can take the cholestyramine if it helps, but you can stop it if you aren't needing it. Its to help bulk the stool and prevent loose stools. If you develop severe watery diarrhea (especially with abdominal pain or fever) within the next 6 months, seek medical attention right away Its a good idea to take a probiotic - can get in drugstore Total Time Total Time Spent Total Time Spent (In Minutes): I personally spent: 50 minutes today on clinical care activities including: reviewing chart notes and vital signs reviewing labs reviewing studies discussion with surgeon examining and counseling the patient counseling the patient's family - at bedside writing prescriptions, discharge instructions documentation Coding Level of Care Code 08087 INP/OBS DISCH >30 MIN Diagnoses Intra-abdominal abscess K65.1 Left pyosalpinx N70.93 Vomiting R11.2 Nausea presence: with nausea Vomiting type: unspecified Diverticulitis K57.92 Hyperlipidemia, unspecified hyperlipidemia type E78.5 Hyperlipidemia type: unspecified Thyroid disease E07.9 Depression, unspecified depression type F32.A Depression Type: unspecified
== END 2024-10-17 16:14 | disposition home health service (06) | DRG 871 ==
LOC: ED 19:52 → 2E 10-06 01:03 → SUATTDRO 10-06 01:03 → 2E 10-06 02:46